=== PATIENT | female | born 1945 | race Caucasian/White ===

== ENCOUNTER 2019-01-15 18:20 | Inpatient (IN) | payer MEDICARE ==
[2019-01-15] MEDS ORDERED: SODIUM CHLORIDE 0.9% 1,000 ML IV STA (18:40)
--- NOTE | 2019-01-15 18:40 | ED ---
Dizziness HPI - General Chief Complaint: Dizziness Stated Complaint: Dizzy, cannot urinate Time Seen by Provider: 01/15/19 18:25 Source: patient, RN notes reviewed, old records reviewed Mode of arrival: ambulatory Limitations: no limitations - History of Present Illness Initial Comments: This is a 73-year-old female the ER for evaluation patient resents ER for evaluation of dizziness dizziness and weakness. Patient recently started on medication for herpes zoster, patient Valtrex and gabapentin. Patient states her symptoms have been fine as far as her eye pain she's had some twitching of the right eye but is today complaining of decreased urination. Patient feels dizziness and some mild balance issues well ambulate. Denies ear pain. No feve rs. No other change in medications. Patient symptoms just started today. She has not urinated for about 8 hours or denies abdominal MD Complaint: dizziness, lightheadedness -: hour(s) Timing: sudden onset Description: lightheadedness, off-balance History of Same: No History of Trauma: No Severity: mild Worsens With: nothing Associated Symptoms: denies other symptoms - Related Data Home Medications Medication Instructions Recorded Confirmed Ergocalciferol [Vitamin D2 50,000 unit PO Q14D 06/16/14 01/15/19 (DRISDOL)] glipiZIDE/METFORMIN HCL 2 tab PO BID 06/16/14 01/15/19 [glipiZIDE/METFORMIN HCL 5-500 mg] sitaGLIPtin PHOSPHATE [Januvia] 100 mg PO DAILY 06/16/14 01/15/19 Aspirin EC [Ecotrin Low Dose] 81 mg PO DAILY 01/15/19 01/15/19 Atorvastatin [Lipitor] 40 mg PO DAILY 01/15/19 01/15/19 Carvedilol [Coreg] 12.5 mg PO BID 01/15/19 01/15/19 Gabapentin [Neurontin] 100 mg PO HS 01/15/19 01/15/19 Insulin Detemir [Levemir Flextouch] 25 units SQ DAILY 01/15/19 01/15/19 Iron 28mg 28 mg PO DAILY 01/15/19 01/15/19 Isosorbide Mononitrate ER [Imdur] 30 mg PO DAILY 01/15/19 01/15/19 Losartan [Cozaar] 50 mg PO DAILY 01/15/19 01/15/19 Prasugrel [Effient] 10 mg PO DAILY 01/15/19 01/15/19 valACYclovir HCL [Valtrex] 1,000 mg PO Q8H 01/15/19 01/15/19 Allergies Allergy/AdvReac Type Severity Reaction Status Date / Time No Known Allergies Allergy Verified 01/15/19 18:44 Review of Systems ROS Statement: Those systems with pertinent positive or pertinent negative responses have been documented in the HPI. ROS Other: All systems not noted in ROS Statement are negative. Past Medical History Past Medical History: Cancer, Diabetes Mellitus, Hyperlipidemia, Hypertension Additional Past Medical History / Comment(s): SHORTNESS OF BREATH, SKIN CA HX History of Any Multi-Drug Resistant Organisms: None Reported Past Surgical History: Section, Cholecystectomy, Hernia Repair, Joint Replacement, Tonsillectomy Additional Past Surgical History / Comment(s): LEFT KNEE REPLACEMENT, UMBILICAL HERNIA REPAIR Past Anesthesia/Blood Transfusion Reactions: No Reported Reaction Past Psychological History: No Psychological Hx Reported Smoking Status: Never smoker Past Alcohol Use History: None Reported Past Drug Use History: None Reported - Past Family History Father Family Medical History: Myocardial Infarction ([place]) Additional Family Medical History / Comment(s): AT AGE 42 General Exam Limitations: no limitations General appearance: alert, in no apparent distress Head exam: Present: atraumatic, normocephalic, normal inspection Eye exam: Present: normal appearance, PERRL, EOMI. Absent: scleral icterus, conjunctival injection, periorbital swelling ENT exam: Present: normal exam, mucous membranes moist Neck exam: Present: normal inspection. Absent: tenderness, meningismus, lymphadenopathy Respiratory exam: Present: normal lung sounds bilaterally. Absent: respiratory distress, wheezes, rales, rhonchi, stridor Cardiovascular Exam: Present: regular rate, normal rhythm, normal heart sounds. Absent: systolic murmur, diastolic murmur, rubs, gallop, clicks GI/Abdominal exam: Present: soft, normal bowel sounds. Absent: distended, tenderness, guarding, rebound, rigid Extremities exam: Present: normal inspection, full ROM, normal capillary refill. Absent: tenderness, pedal edema, joint swelling, calf tenderness Back exam: Present: normal inspection Neurological exam: Present: alert, oriented X3, CN II-XII intact Psychiatric exam: Present: normal affect, normal mood Skin exam: Present: warm, dry, intact, normal color. Absent: rash Course Vital Signs 01/15/19 18:22 Temperature 97.4 F L Pulse Rate 98 Respiratory 20 Rate Blood Pressure 159/70 O2 Sat by Pulse 99 Oximetry - Reevaluation(s) Reevaluation #1: 01/15/19 18:43 Medical record is reviewed Reevaluation #2: 01/15/19 19:33 No prior history of renal failure - Consultations Consultation #1: Spoke with Dr. Rosales regarding admission, agreeable for admission will consult nephrology EKG Findings - EKG Comments: EKG Findings:: EKG shows sinus rhythm rate of 96, ID 166, QRS 146, QTc 495 Medical Decision Making - Medical Decision Making 73 female the ER for evaluation patient resents today for evaluation of inability urinate. Bristly diagnosed with zoster of the face she has a ophthalmology without any complications. Concern acyclovir and gabapentin, we'll hold those medications currently, patient does have new acute renal failure and will admit for nephrology evaluation - Lab Data Result diagrams: 01/15/19 18:50 01/15/19 18:50 Lab Results 01/15/19 01/15/19 Range/Units 18:50 18:50 WBC 14.4 H (3.8-10.6) k/uL RBC 4.08 (3.80-5.40) m/uL Hgb 11.8 (11.4-16.0) gm/dL Hct 36.4 (34.0-46.0) % MCV 89.3 (80.0-100.0) fL MCH 28.9 (25.0-35.0) pg MCHC 32.4 (31.0-37.0) g/dL RDW 17.0 H (11.5-15.5) % Plt Count 290 (150-450) k/uL Neutrophils % 75 % Lymphocytes % 13 % Monocytes % 7 % Eosinophils % 1 % Basophils % 1 % Neutrophils # 10.8 H (1.3-7.7) k/uL Lymphocytes # 1.9 (1.0-4.8) k/uL Monocytes # 1.1 H (0-1.0) k/uL Eosinophils # 0.2 (0-0.7) k/uL Basophils # 0.1 (0-0.2) k/uL Anisocytosis Slight Sodium 137 (137-145) mmol/L Potassium 4.8 (3.5-5.1) mmol/L Chloride 96 L (98-107) mmol/L Carbon Dioxide 16 L (22-30) mmol/L Anion Gap 25 mmol/L BUN 42 H (7-17) mg/dL Creatinine 4.77 H (0.52-1.04) mg/dL Est GFR (CKD-EPI)AfAm 10 (>60 ml/min/1.73 sqM) Est GFR (CKD-EPI)NonAf 9 (>60 ml/min/1.73 sqM) Glucose 144 H (74-99) mg/dL Calcium 10.6 H (8.4-10.2) mg/dL Phosphorus 8.4 H (2.5-4.5) mg/dL Magnesium 1.8 (1.6-2.3) mg/dL Total Bilirubin 1.0 (0.2-1.3) mg/dL AST 18 (14-36) U/L ALT 37 (9-52) U/L Alkaline Phosphatase 61 (38-126) U/L Creatine Kinase 74 (30-135) U/L Total Protein 7.9 (6.3-8.2) g/dL Albumin 4.4 (3.5-5.0) g/dL - Radiology Data Radiology results: report reviewed (X-ray abdominal series the chest is negative for acute disease), image reviewed Disposition Clinical Impression: Acute renal failure, Oliguria Disposition: ADMITTED IP TO THIS HOSP Condition: Fair Is patient prescribed a controlled substance at d/c from ED?: No Referrals: Erick Vance MD [Primary Care Provider] - 1-2 days
[2019-01-15 19:10] LABS: Anisocytosis Slight; Basophils # (A) 0.1 k/uL (0-0.2); Basophils % (A) 1 %; Eosinophils # (A) 0.2 k/uL (0-0.7); Eosinophils % (A) 1 %; HCT 36.4 % (34.0-46.0); HGB 11.8 gm/dL (11.4-16.0); Lymphocytes # (A) 1.9 k/uL (1.0-4.8); Lymphocytes % (A) 13 %; MCH 28.9 pg (25.0-35.0); MCHC 32.4 g/dL (31.0-37.0); MCV 89.3 fL (80.0-100.0); Mean Platelet Volume 7.2; Monocytes # (A) 1.1 k/uL (0-1.0); Monocytes % (A) 7 %; Neutrophils # (A) 10.8 k/uL (1.3-7.7); Neutrophils % (A) 75 %; Platelet Count 290 k/uL (150-450); RBC 4.08 m/uL (3.80-5.40); WBC 14.4 k/uL (3.8-10.6)
[2019-01-15 19:23] LABS: Albumin 4.4 g/dL (3.5-5.0); Calcium 10.6 mg/dL (8.4-10.2); Magnesium 1.8 mg/dL (1.6-2.3); Phosphorus 8.4 mg/dL (2.5-4.5); Potassium 4.8 mmol/L (3.5-5.1); Total Protein 7.9 g/dL (6.3-8.2)
--- NOTE | 2019-01-15 19:27 | XR ---
EXAMINATION TYPE: XR abdomen acute w cxr DATE OF EXAM: 01/15/2019 COMPARISON: NONE HISTORY: Dizziness TECHNIQUE: Chest x-ray with supine and upright abdomen FINDINGS: There is mild coarsening of interstitial pulmonary markings. There is no heart failure. Heart size is normal. There is no pleural effusion. There is bilateral mild bronchial adenopathy. There is no sign of intestinal obstruction or pneumoperitoneum. Fecal pattern is normal. There are cl ips from cholecystectomy. No pathologic calcifications over the kidneys. IMPRESSION: Pulmonary interstitial fibrotic changes and mild bronchial adenopathy. Chest not significantly differ ent than June 05, 2014 exam. This could relate to sarcoidosis. Nonacute abdomen.
[2019-01-15] MEDS ORDERED: SODIUM CHLORIDE 0.9% 1,000 ML IV ONE (19:32)
[2019-01-15 21:21] LABS: Glucose,Whole Blood 61 mg/dL (75-99)
[2019-01-15] MEDS: valACYclovir 500 MG TAB PO SCH (21:21)
[2019-01-15 21:35] VITALS: BMI 33.1
[2019-01-15 21:40] LABS: Glucose,Whole Blood 59 mg/dL (75-99)
[2019-01-15] MEDS ORDERED: ACETAMINOPHEN TAB 325 MG TAB PO PRN (22:05)
[2019-01-15] MEDS ORDERED: HYDROmorphone 0.5 MG/0.5 ML SYRINGE IVP PRN (22:05)
[2019-01-15 22:06] LABS: Glucose,Whole Blood 52 mg/dL (75-99)
[2019-01-15] MEDS ORDERED: GABAPENTIN 100 MG CAP PO SCH (22:15)
[2019-01-15 22:33] LABS: Glucose,Whole Blood 71 mg/dL (75-99)
[2019-01-15 23:07] LABS: Glucose,Whole Blood 58 mg/dL (75-99)
[2019-01-16 00:59] LABS: Glucose,Whole Blood 78 mg/dL (75-99)
[2019-01-16 02:14] LABS: Glucose,Whole Blood 106 mg/dL (75-99)
[2019-01-16 07:04] LABS: Glucose,Whole Blood 108 mg/dL (75-99)
--- NOTE | 2019-01-16 08:56 | US ---
EXAMINATION TYPE: US renals and bladder DATE OF EXAM: 01/16/2019 COMPARISON: NONE CLINICAL HISTORY: arf. ARF EXAM MEASUREMENTS: Right Kidney: 12.5 x 5.2 x 4.7 cm Left Kidney: 11.5 x 5.4 x 5.0 cm Right Kidney: no evidence of hydronephrosis Left Kidney: no evidence of hydronephrosis Bladder: not fully distended Bilateral Jets seen: no There is no evidence for hydronephrosis at this point in time. No nephrolithiasis is seen. No anali s are identified. The urinary bladder is anechoic. Bilateral ureteral jets are seen. IMPRESSION: NORMAL RENAL ULTRASOUND.
[2019-01-16] MEDS: FERROUS SULFATE ORAL ELIXIR 300 MG/5 ML CUP PO SCH (09:01)
[2019-01-16] MEDS: ENOXAPARIN 40 MG/0.4 ML SYRINGE SQ SCH (09:01)
[2019-01-16] MEDS: ATORVASTATIN 40 MG TAB PO SCH (09:02)
[2019-01-16] MEDS: PRASUGREL 10 MG TAB PO SCH (09:02)
[2019-01-16] MEDS: ISOSORBIDE MONONITRATE ER 30 MG TAB.ER.24H PO SCH (09:02)
[2019-01-16] MEDS: ASPIRIN 81 MG PO SCH (09:02)
[2019-01-16] MEDS: valACYclovir 500 MG TAB PO SCH (09:09)
[2019-01-16 11:35] LABS: Amorphous Sediment,Urine Rare /hpf; Appearance,Urine Clear (Clear); Bacteria,Urine Occasional /hpf; Bilirubin,Urine Negative (Negative); Blood,Urine Trace (Negative); Color,Urine Colorless; Glucose,Urine (UA) Negative (Negative); Ketones,Urine Negative (Negative); Leukocyte Esterase,Urine Negative (Negative); Mucus,Urine Rare /hpf; Nitrite,Urine Negative (Negative); Protein,Urine Negative (Negative); RBC,Urine 1 /hpf (0-5); Specific Gravity,Urine 1.006 (1.001-1.035); Squamous Epithelial Cell,Urine <1 /hpf (0-4); Urobilinogen,Urine <2.0 mg/dL (<2.0)
--- NOTE | 2019-01-16 11:43 | P.NPCON ---
History of Present Illness - Reason for Consult Consult date: 01/16/19 acute renal failure - Chief Complaint Dizziness, acute kidney injury - History of Present Illness This is a 73-year-old female seen in consultation because of acute kidney injury, severe gap acidosis with a gap of 25 and the bicarb of 16, mild hypercalcemia at 10.6, and possibly chronic kidney disease Her creatinine on admission was 4.7. Previous creatinines here in the hospital or from 06/05/2014, at the time creatinine was 0.75. No urinalysis is available Ultrasound of the kidney done this admission yesterday right kidney 12.5 cm and left kidney 11.5 cm no hydronephrosis. Her calcium is also high Her admission is because of dizziness. No nausea vomiting. Dizziness described as vertiginous. Started about 3-4 days ago. Recently a week ago she was diagnosed to have zoster on her right upper face and was started on Acyclovir 1000 mg every 8 hours. The zoster lesions are stable and only few. She denies any fever chills that have a headache. She took maybe to at least a few days ago. She is on losartan. No history of any bladder dysfunction although she has some mild stress incontinence. No history of hematuria kidney stones. No family history of kidney disease Past Medical History Past Medical History: Cancer, Diabetes Mellitus, Hyperlipidemia, Hypertension Additional Past Medical History / Comment(s): SHORTNESS OF BREATH, SKIN CA HX History of Any Multi-Drug Resistant Organisms: None Reported Past Surgical History: Section, Cholecystectomy, Hernia Repair, Joint Replacement, Tonsillectomy Additional Past Surgical History / Comment(s): LEFT KNEE REPLACEMENT, UMBILICAL HERNIA REPAIR Past Anesthesia/Blood Transfusion Reactions: No Reported Reaction Past Psychological History: No Psychological Hx Reported Smoking Status: Never smoker Past Alcohol Use History: None Reported Past Drug Use History: None Reported - Past Family History Father Family Medical History: Myocardial Infarction ([place]) Additional Family Medical History / Comment(s): AT AGE 42 Medications and Allergies Home Medications Medication Instructions Recorded Confirmed Type Ergocalciferol [Vitamin D2 50,000 unit PO Q14D 06/16/14 01/15/19 History (DRISDOL)] glipiZIDE/METFORMIN HCL 2 tab PO BID 06/16/14 01/15/19 History [glipiZIDE/METFORMIN HCL 5-500 mg] sitaGLIPtin PHOSPHATE [Januvia] 100 mg PO DAILY 06/16/14 01/15/19 History Aspirin EC [Ecotrin Low Dose] 81 mg PO DAILY 01/15/19 01/15/19 History Atorvastatin [Lipitor] 40 mg PO DAILY 01/15/19 01/15/19 History Carvedilol [Coreg] 12.5 mg PO BID 01/15/19 01/15/19 History Gabapentin [Neurontin] 100 mg PO HS 01/15/19 01/15/19 History Insulin Detemir [Levemir Flextouch] 25 units SQ DAILY 01/15/19 01/15/19 History Iron 28mg 28 mg PO DAILY 01/15/19 01/15/19 History Isosorbide Mononitrate ER [Imdur] 30 mg PO DAILY 01/15/19 01/15/19 History Losartan [Cozaar] 50 mg PO DAILY 01/15/19 01/15/19 History Prasugrel [Effient] 10 mg PO DAILY 01/15/19 01/15/19 History valACYclovir HCL [Valtrex] 1,000 mg PO Q8H 01/15/19 01/15/19 History Allergies Allergy/AdvReac Type Severity Reaction Status Date / Time No Known Allergies Allergy Verified 01/15/19 18:44 Physical Exam Vitals: Vital Signs Temp Pulse Pulse Resp BP BP Pulse Ox 01/16/19 07:00 97.8 F 104 H 18 170/60 95 01/16/19 01:47 98.0 F 109 H 16 165/67 96 01/15/19 20:58 98.7 F 103 H 18 90/62 01/15/19 20:40 98.2 F 96 19 165/74 99 01/15/19 18:22 97.4 F L 98 20 159/70 99 Intake and Output 01/15/19 01/16/19 01/16/19 22:59 06:59 14:59 Intake Total 1099 Balance 1099 Intake: Intake, IV Titration 1099 Amount Sodium Chloride 0.9% 1, 100 000 ml @ 100 mls/hr IV . Q10H ONE Rx#:[id number] Sodium Chloride 0.9% 1, 999 000 ml @ 999 mls/hr IV . Q1H1M STA Rx#:[id number] Other: Voiding Method Toilet # Voids 0 Weight 87.543 kg On examination she is awake alert oriented comfortable HEENT exam there are few lesions on her right upper face about the eyebrow. Her eyes look normal No JVP lymphadenopathy thyromegaly noted Lungs are clear to auscultation good air entry bilaterally Heart sounds are unremarkable for any murmur rub gallop Abdomen soft nontender no organomegaly ascites masses no suprapubic or groin tenderness Extremity exam reveals no edema Neuro logically awake alert oriented comfortable. No focal motor deficit no tremors no asterixis Results - Lab Results Most recent lab results Calcium 10.6 mg/dL (8.4-10.2) H 01/15/19 18:50 Phosphorus 8.4 mg/dL (2.5-4.5) H 01/15/19 18:50 Magnesium 1.8 mg/dL (1.6-2.3) 01/15/19 18:50 01/15/19 18:50 01/15/19 18:50 Assessment and Plan Assessment: Impression 1. Acute kidney injury likely from Valacyclovir, cannot rule out other causes. Her calcium is slightly high at 10.6 kg on ergocalciferol 50,000 units every 14 days. She is not on any calcium 2. Unclear as to whether she has chronic kidney disease. Creatinine was 0.7 dated 06/05/2014. Ultrasound showed normal-sized kidney at 12.5 and 11.5 cm 3. Severe gap acidosis, gap is 25, and bicarb is 16. Corrected bicarb would be 28 suggestive of a primary metabolic alkalosis as well. The etiology of this could be just acute kidney injury. But with the presence of unexplained gap rule out lactic acidosis. Glucose is 144 unlikely to be ketoacidosis but this needs to be ruled out as well 4. Mild hypercalcemia calcium is 10.7. Rule out malignancy. 5. Diabetes mellitus for 40 years with no retinopathy and no neuropathy. 6. History of hypertension on losartan. 7. History of coronary artery disease with stent. Recommendation 1. IV normal saline at 100 and hour. 2. Urine analysis, urine random creatinine and protein protein to creatinine ratio 3. Urine and serum free light chains rule out myeloma 4. Check Mohamud level to rule out sarcoidosis 5. Check PTH, and vitamin D 125 level 6. Check CPK as her phosphorus is somewhat high and we'll make sure there is no rhabdomyolysis. 7. Agree with the reduction in the dose of Valtrex acyclovir. 8. Maintain strict I's and O's 9. Check bladder scan. 10. Check stat lites see where the acidosis is 11. Check stat serum osmolality to rule out any alcohol poisoning. 12. Serology for glomerular disease will be ordered if necessary Thank you for this consultation and will continue to follow closely
[2019-01-16 12:16] LABS: Albumin 3.7 g/dL (3.5-5.0); Total Bilirubin 0.9 mg/dL (0.2-1.3)
[2019-01-16 12:33] LABS: Glucose,Whole Blood 83 mg/dL (75-99)
--- NOTE | 2019-01-16 16:23 | P.HPIM ---
History of Present Illness H&P Date: 01/16/19 Chief Complaint: Weakness dizziness, unable to void This is a 73-year-old pleasant lady patient of Dr. Vance. He has underlying history of hypertension, diabetes mellitus type 2, hypertension, CAD, CK D unknown type, admitted to the emergency room secondary to dizziness, d isorientation, patient was off balance, and was not able to void for approximately one day. Patient was recently treated by our nurse percussion and office for varicella zoster v1 distribution lesion in the right temporal region, using valacyclovir and gabapentin 100 mg hs, this was started 3 days ago. He also got to see the press box custodian secondary to the proximity of the lesions to the eyelid. And mentioned that there is no herpetic keratitis noted. sHe now presents to the emergency room with the above symptoms including dizziness, off balance, and was at the home yesterday, and noticed that for the entire day she was not able to void. Patient took 2 doses of Motrin that day, there is no abdominal pain, no falls, patient does not have any shaking chills,. Next Emergency room, lab shows urinalysis is negative, creatinine of 4.7 the most recent value from her computer was in May 2014 with creatinine was 0.75 patient was admitted secondary to acute kidney failure, with consultations to nephrology, urinalysis requested, along with urine eosinophils, postvoid resi dual, and renal ultrasound. Patient also has mild hypercalcemia of 10.7, severe gap acidosis of 25 bicarb of 16 Review of Systems Constitutional: Reports as per HPI, Denies anorexia, Denies chills, Denies chronic headaches, Denies chronic pain, Denies daytime sleepiness, Denies fatigue, Denies fever, Denies lethargy, Denies malaise, Denies night sweats, Den ies poor appetite, Denies sweats, Denies weakness, Denies weight gain, Denies weight loss Ears, nose, mouth and throat: Reports as per HPI Cardiovascular: Reports as per HPI, Denies chest pain, Denies claudication, Denies decreased exercise tolerance, Denies dyspnea on exertion, Denies edema, Denies high blood pressure, Denies irregular heart beat, Denies leg edema, Denies lightheadedness, Denies orthopnea, Denies palpitations, Denies paroxysmal nocturnal dyspnea, Denies phlebitis, Denies rapid heart beat, Denies shortness of breath, Denies syncope Respiratory: Reports as per HPI, Denies congestion, Denies cough, Denies cough with sputum, Denies dyspnea, Denies excessive sputum, Denies hemoptysis, Denies home oxygen, Denies pain, Denies pain on inspiration, Denies pleurisy, Denies respiratory infections, Denies sleep apnea, Denies snoring, Denies wheezing Gastrointestinal: Reports as per HPI, Reports loss of appetite, Denies abdominal pain, Denies belching, Denies bloating, Denies BRBPR, Denies change in bowel habits, Denies coffee ground emesis, Denies constipation, Denies diarrhea, Denies dyspepsia, Denies early satiety, Denies excessive gas, Denies heartburn, Denies hematemesis, Denies hematochezia, Denies indigestion, Denies jaundice, Denies lactose intolerance, Denies melena, Denies nausea, Denies vomiting Genitourinary: Reports as per HPI, Denies abnormal vaginal bleeding, Denies decreased libido, Denies difficulty conceiving, Denies difficulty voiding, Denies dysmenorrhea, Denies dyspareunia, Denies dysuria, Denies flank pain, Denies genital sores, Denies hematuria, Denies hot flashes, Denies incomplete emptying, Denies kidney stones, Denies menorrhagia, Denies mixed incontinence, Denies nocturia, Denies pelvic pain, Denies post void dribbling, Denies , Denies prolapse symptoms, Denies stress incontinence, Denies urge incontinence, Denies urgency, Denies urinary frequency, Denies vaginal discharge, Denies vaginal dryness, Denies vaginal itching, Denies vaginal odor Menstruation: Reports as per HPI, Reports postmenopausal Musculoskeletal: Reports as per HPI (Right facial rash,) Integumentary: Reports as per HPI, Denies acne, Denies boils, Denies brittle nails, Denies change in hair/nails, Denies color changes, Denies darkening of skin, Denies depigmentation, Denies dryness, Denies foot/leg ulcers, Denies growths, Denies hirsutism, Denies lesions, Denies onychomycosis, Denies pruritus, Denies rash, Denies sores, Denies striae, Denies unusual bruising, Denies wounds Neurological: Reports weakness, Reports visual changes (Persistent negative after image), Denies as per HPI, Denies aphasia, Denies ataxia, Denies balance difficulties, Denies burning pain, Denies change in mentation, Denies change in smell/taste, Denies change in speech, Denies confusion, Denies convulsions, Denies double vision, Denies gait dysfunction, Denies head injury, Denies headaches, Denies hearing difficulties, Denies lack of coordination, Denies loss of vision, Denies memory loss, Denies migraines, Denies motor disturbance, Denies numbness, Denies paralysis, Denies paresthesias, Denies seizures, Denies sensory deficit, Denies spasticity, Denies syncope, Denies tic, Denies tingling, Denies transient paralysis, Denies tremors, Denies vertigo Psychiatric: Reports as per HPI, Denies anhedonia, Denies anxiety, Denies anxiety attacks, Denies change in appetite, Denies change in libido, Denies change in sleep habits, Denies confusion, Denies depression, Denies difficulty concentrating, Denies disorientation, Denies hallucinations, Denies hopelessness, Denies hypersomnia, Denies insomnia, Denies irritability, Denies memory loss, Denies mood swings, Denies paranoia, Denies sadness/tearfulness, Denies sleep disturbances, Denies suicidal ideation Endocrine: Reports as per HPI Hematologic/Lymphatic: Reports as per HPI Allergic/Immunologic: Reports as per HPI, Denies allergic rhinitis, Denies anaphylaxis, Denies angioedema, Denies gluten intolerance, Denies persistent infections, Denies seasonal allergies, Denies urticaria, Denies wheezing Past Medical History Past Medical History: Cancer, Diabetes Mellitus, Hyperlipidemia, Hypertension Additional Past Medical History / Comment(s): SHORTNESS OF BREATH, SKIN CA HX History of Any Multi-Drug Resistant Organisms: None Reported Past Surgical History: Section, Cholecystectomy, Hernia Repair, Joint Replacement, Tonsillectomy Additional Past Surgical History / Comment(s): LEFT KNEE REPLACEMENT, UMBILICAL HERNIA REPAIR Past Anesthesia/Blood Transfusion Reactions: No Reported Reaction Past Psychological History: No Psychological Hx Reported Smoking Status: Never smoker Past Alcohol Use History: None Reported Past Drug Use History: None Reported - Past Family History Father Family Medical History: Myocardial Infarction ([place]) Additional Family Medical History / Comment(s): AT AGE 42 Medications and Allergies Home Medications Medication Instructions Recorded Confirmed Type Ergocalciferol [Vitamin D2 50,000 unit PO Q14D 06/16/14 01/15/19 History (DRISDOL)] glipiZIDE/METFORMIN HCL 2 tab PO BID 06/16/14 01/15/19 History [glipiZIDE/METFORMIN HCL 5-500 mg] sitaGLIPtin PHOSPHATE [Januvia] 100 mg PO DAILY 06/16/14 01/15/19 History Aspirin EC [Ecotrin Low Dose] 81 mg PO DAILY 01/15/19 01/15/19 History Atorvastatin [Lipitor] 40 mg PO DAILY 01/15/19 01/15/19 History Carvedilol [Coreg] 12.5 mg PO BID 01/15/19 01/15/19 History Gabapentin [Neurontin] 100 mg PO HS 01/15/19 01/15/19 History Insulin Detemir [Levemir Flextouch] 25 units SQ DAILY 01/15/19 01/15/19 History Iron 28mg 28 mg PO DAILY 01/15/19 01/15/19 History Isosorbide Mononitrate ER [Imdur] 30 mg PO DAILY 01/15/19 01/15/19 History Losartan [Cozaar] 50 mg PO DAILY 01/15/19 01/15/19 History Prasugrel [Effient] 10 mg PO DAILY 01/15/19 01/15/19 History valACYclovir HCL [Valtrex] 1,000 mg PO Q8H 01/15/19 01/15/19 History Allergies Allergy/AdvReac Type Severity Reaction Status Date / Time No Known Allergies Allergy Verified 01/15/19 18:44 Physical Exam Vitals: Vital Signs Temp Pulse Pulse Resp BP BP Pulse Ox 01/16/19 07:00 97.8 F 104 H 18 170/60 95 01/16/19 01:47 98.0 F 109 H 16 165/67 96 01/15/19 20:58 98.7 F 103 H 18 90/62 01/15/19 20:40 98.2 F 96 19 165/74 99 01/15/19 18:22 97.4 F L 98 20 159/70 99 Intake and Output 01/15/19 01/16/19 01/16/19 22:59 06:59 14:59 Intake Total 1099 Balance 1099 Intake: Intake, IV Titration 1099 Amount Sodium Chloride 0.9% 1, 100 000 ml @ 100 mls/hr IV . Q10H ONE Rx#:[id number] Sodium Chloride 0.9% 1, 999 000 ml @ 999 mls/hr IV . Q1H1M STA Rx#:[id number] Other: Voiding Method Toilet # Voids 0 Weight 87.543 kg - Constitutional General appearance: cooperative, no acute distress - EENT Eyes: anicteric sclerae, EOMI, PERRLA, dentition normal, normal appearance ENT: NA/AT, normal oropharynx - Neck Neck: normal ROM - Respiratory Respiratory: bilateral: CTA, negative: diminished, dullness, rales - Cardiovascular Rhythm: regular Heart sounds: normal: S1, S2 - Gastrointestinal General gastrointestinal: normal bowel sounds, soft - Integumentary Integumentary: decreased turgor, normal, rash (Healing lesions in the right forehead, eyelid right side, no visible lesions on the right sclera and right pupils) - Neurologic Neurologic: CNII-XII intact - Musculoskeletal Musculoskeletal: gait normal, strength equal bilaterally - Psychiatric Psychiatric: A&O x's 3 Results CBC & Chem 7: 01/15/19 18:50 01/16/19 11:50 Labs: Abnormal Lab Results - Last 24 Hours (Table) 01/15/19 01/15/19 01/15/19 Range/Units 18:50 18:50 21:06 WBC 14.4 H (3.8-10.6) k/uL RDW 17.0 H (11.5-15.5) % Neutrophils # 10.8 H (1.3-7.7) k/uL Monocytes # 1.1 H (0-1.0) k/uL Sodium (137-145) mmol/L Chloride 96 L (98-107) mmol/L Carbon Dioxide 16 L (22-30) mmol/L BUN 42 H (7-17) mg/dL Creatinine 4.77 H (0.52-1.04) mg/dL Glucose 144 H (74-99) mg/dL POC Glucose (mg/dL) 61 L (75-99) mg/dL Calcium 10.6 H (8.4-10.2) mg/dL Phosphorus 8.4 H (2.5-4.5) mg/dL Urine Blood (Negative) Amorphous Sediment (None) /hpf Urine Bacteria (None) /hpf Urine Mucus (None) /hpf 01/15/19 01/15/19 01/15/19 Range/Units 21:28 21:53 22:21 WBC (3.8-10.6) k/uL RDW (11.5-15.5) % Neutrophils # (1.3-7.7) k/uL Monocytes # (0-1.0) k/uL Sodium (137-145) mmol/L Chloride (98-107) mmol/L Carbon Dioxide (22-30) mmol/L BUN (7-17) mg/dL Creatinine (0.52-1.04) mg/dL Glucose (74-99) mg/dL POC Glucose (mg/dL) 59 L 52 L 71 L (75-99) mg/dL Calcium (8.4-10.2) mg/dL Phosphorus (2.5-4.5) mg/dL Urine Blood (Negative) Amorphous Sediment (None) /hpf Urine Bacteria (None) /hpf Urine Mucus (None) /hpf 01/15/19 01/16/19 01/16/19 Range/Units 22:55 01:58 06:51 WBC (3.8-10.6) k/uL RDW (11.5-15.5) % Neutrophils # (1.3-7.7) k/uL Monocytes # (0-1.0) k/uL Sodium (137-145) mmol/L Chloride (98-107) mmol/L Carbon Dioxide (22-30) mmol/L BUN (7-17) mg/dL Creatinine (0.52-1.04) mg/dL Glucose (74-99) mg/dL POC Glucose (mg/dL) 58 L 106 H 108 H (75-99) mg/dL Calcium (8.4-10.2) mg/dL Phosphorus (2.5-4.5) mg/dL Urine Blood (Negative) Amorphous Sediment (None) /hpf Urine Bacteria (None) /hpf Urine Mucus (None) /hpf 01/16/19 01/16/19 Range/Units 10:00 11:50 WBC (3.8-10.6) k/uL RDW (11.5-15.5) % Neutrophils # (1.3-7.7) k/uL Monocytes # (0-1.0) k/uL Sodium 136 L (137-145) mmol/L Chloride (98-107) mmol/L Carbon Dioxide 18 L (22-30) mmol/L BUN 54 H (7-17) mg/dL Creatinine 5.52 H (0.52-1.04) mg/dL Glucose (74-99) mg/dL POC Glucose (mg/dL) (75-99) mg/dL Calcium (8.4-10.2) mg/dL Phosphorus (2.5-4.5) mg/dL Urine Blood Trace H (Negative) Amorphous Sediment Rare H (None) /hpf Urine Bacteria Occasional H (None) /hpf Urine Mucus Rare H (None) /hpf Laboratory Results WBC 14.4 k/uL (3.8-10.6) H 01/15/19 18:50 RBC 4.08 m/uL (3.80-5.40) 01/15/19 18:50 Hgb 11.8 gm/dL (11.4-16.0) 01/15/19 18:50 Hct 36.4 % (34.0-46.0) 01/15/19 18:50 MCV 89.3 fL (80.0-100.0) 01/15/19 18:50 MCH 28.9 pg (25.0-35.0) 01/15/19 18:50 MCHC 32.4 g/dL (31.0-37.0) 01/15/19 18:50 RDW 17.0 % (11.5-15.5) H 01/15/19 18:50 Plt Count 290 k/uL (150-450) 01/15/19 18:50 Neutrophils % 75 % 01/15/19 18:50 Lymphocytes % 13 % 01/15/19 18:50 Monocytes % 7 % 01/15/19 18:50 Eosinophils % 1 % 01/15/19 18:50 Basophils % 1 % 01/15/19 18:50 Neutrophils # 10.8 k/uL (1.3-7.7) H 01/15/19 18:50 Lymphocytes # 1.9 k/uL (1.0-4.8) 01/15/19 18:50 Monocytes # 1.1 k/uL (0-1.0) H 01/15/19 18:50 Eosinophils # 0.2 k/uL (0-0.7) 01/15/19 18:50 Basophils # 0.1 k/uL (0-0.2) 01/15/19 18:50 Anisocytosis Slight 01/15/19 18:50 Sodium 136 mmol/L (137-145) L 01/16/19 11:50 Potassium 5.0 mmol/L (3.5-5.1) 01/16/19 11:50 Chloride 100 mmol/L (98-107) 01/16/19 11:50 Carbon Dioxide 18 mmol/L (22-30) L 01/16/19 11:50 Anion Gap 18 mmol/L 01/16/19 11:50 BUN 54 mg/dL (7-17) H 01/16/19 11:50 Creatinine 5.52 mg/dL (0.52-1.04) H 01/16/19 11:50 Est GFR (CKD-EPI)AfAm 8 (>60 ml/min/1.73 sqM) 01/16/19 11:50 Est GFR (CKD-EPI)NonAf 7 (>60 ml/min/1.73 sqM) 01/16/19 11:50 Glucose 78 mg/dL (74-99) 01/16/19 11:50 POC Glucose (mg/dL) 83 mg/dL (75-99) 01/16/19 12:16 POC Glu Health Counselor ID Madeleine Jacobs 01/16/19 12:16 Osmolality 294 mosm/kg (280-301) 01/16/19 11:50 Plasma Lactic Acid [place] 3.0 mmol/L (0.7-2.0) H* 01/16/19 13:10 Calcium 10.0 mg/dL (8.4-10.2) 01/16/19 11:50 Phosphorus 8.4 mg/dL (2.5-4.5) H 01/15/19 18:50 Magnesium 1.8 mg/dL (1.6-2.3) 01/15/19 18:50 Total Bilirubin 0.9 mg/dL (0.2-1.3) 01/16/19 11:50 AST 15 U/L (14-36) 01/16/19 11:50 ALT 31 U/L (9-52) 01/16/19 11:50 Alkaline Phosphatase 65 U/L (38-126) 01/16/19 11:50 Creatine Kinase 57 U/L (30-135) 01/16/19 11:50 Total Protein 7.0 g/dL (6.3-8.2) 01/16/19 11:50 Albumin 3.7 g/dL (3.5-5.0) 01/16/19 11:50 Urine Color Colorless 01/16/19 10:00 Urine Appearance Clear (Clear) 01/16/19 10:00 Urine pH 5.0 (5.0-8.0) 01/16/19 10:00 Ur Specific [place] 1.006 (1.001-1.035) 01/16/19 10:00 Urine Protein Negative (Negative) 01/16/19 10:00 Urine Glucose (UA) Negative (Negative) 01/16/19 10:00 Urine Ketones Negative (Negative) 01/16/19 10:00 Urine Blood Trace (Negative) H 01/16/19 10:00 Urine Nitrite Negative (Negative) 01/16/19 10:00 Urine Bilirubin Negative (Negative) 01/16/19 10:00 Urine Urobilinogen <2.0 mg/dL (<2.0) 01/16/19 10:00 Ur Leukocyte Esterase Negative (Negative) 01/16/19 10:00 Urine RBC 1 /hpf (0-5) 01/16/19 10:00 Urine WBC 2 /hpf (0-5) 01/16/19 10:00 Ur Squamous Epith Cells <1 /hpf (0-4) 01/16/19 10:00 Amorphous Sediment Rare /hpf (None) H 01/16/19 10:00 Urine Bacteria Occasional /hpf (None) H 01/16/19 10:00 Urine Mucus Rare /hpf (None) H 01/16/19 10:00 Urine Eosinophils % 01/16/19 10:00 Acetone, Qual Negative (Negative) 01/16/19 11:50 Thrombosis Risk Factor Assmnt - DVT/VTE Prophylaxis DVT/VTE Prophylaxis: Low risk, early ambulation encouraged - Choose All That Apply Any of the Below Risk Factors Present?: No Other Risk Factors: Yes Each Risk Factor Represents 2 Points: Age 61-74 years Other congenital or acquired thrombophilia - If yes, enter type in comment: No Thrombosis Risk Factor Assessment Total Risk Factor Score: 2 Thrombosis Risk Factor Assessment Level: Low Risk Assessment and Plan Plan: 1. Acute kidney failure, most likely secondary to valacyclovir as this is also been associated with acute kidney failure, as well as uremic encephalopathies, aggravated by the use of NSAIDs prior to admission, no evidence of hypotension, we'll going to evaluate for postobstructive nephropathies, abdominal ultrasound requested. Abdominal ultrasound shows normal renal ultrasound without hydro nephrosis no nephrolithiasis, no masses, and anechoic urinary bladder, with bilateral urethral check seen. Nephrology is to see the patient we'll going to discontinue valacyclovir. Dr. Herrera has ordered Mohamud levels and multiple myeloma and myeloma labs. Urine eosinophils not detected. 2. Herpes zoster first trigeminal region right side, lesions are healing, without any evidence of cellulitis, patient was seen by ophthalmology with no herpes zoster keratitis, we will discontinue the valacyclovir at this time secondary to the adverse events. 3. vision change with persistent negative after image reactions, possibly related to valacyclovir or gabapentin, both are discontinued, no lesions are noted in the visual field per ophthalmology. 4. Metabolic acidosis with high anion gap, possibly related to kidney failure, urine acetones negative, nephrology is following Hypercalcemia, 10.6 on baseline, possibly related to dehydration, however she is on chronic supplementation for vitamin D, sarcoid Mohamud levels. Requested along with multiple myeloma labs 6. Diabetes mellitus type 2 on the beside metformin, these are discontinued secondary to hypoglycemia present on admission, complicated for the use of metformin secondary to creatinine over 1.5, patient will begin a scale discontinue Januvia secondary to creatinine clearance 7. CAD, on Coreg 12.5, Lipitor, aspirin 81, and effient hold Cozaar secondary to elevated creatinine with acute failure 8. Hyperlipidemia on Coreg DVT prophylaxis low-risk, start early ambulation and HOMER hose GI prophylaxis with Pepcid
[2019-01-16 17:08] LABS: Glucose,Whole Blood 97 mg/dL (75-99)
[2019-01-16 20:46] LABS: Glucose,Whole Blood 82 mg/dL (75-99)
[2019-01-16] MEDS: hydrALAZINE HCL 20 MG/ML 1 ML VIAL IVP PRN (21:34)
[2019-01-16 22:01] LABS: Glucose,Whole Blood 88 mg/dL (75-99)
[2019-01-17] MEDS: hydrALAZINE HCL 20 MG/ML 1 ML VIAL IVP PRN ×2 (02:44→08:14)
[2019-01-17 06:51] LABS: Glucose,Whole Blood 93 mg/dL (75-99)
[2019-01-17 07:38] LABS: Anisocytosis Slight; Basophils % (A) 0 %; Eosinophils # (A) 0.1 k/uL (0-0.7); Eosinophils % (A) 2 %; HCT 35.5 % (34.0-46.0); HGB 11.3 gm/dL (11.4-16.0); Lymphocytes # (A) 0.9 k/uL (1.0-4.8); Lymphocytes % (A) 10 %; MCH 27.6 pg (25.0-35.0); MCHC 31.8 g/dL (31.0-37.0); MCV 86.8 fL (80.0-100.0); Mean Platelet Volume 6.8; Monocytes # (A) 0.6 k/uL (0-1.0); Monocytes % (A) 7 %; Neutrophils % (A) 79 %; Platelet Count 268 k/uL (150-450); RBC 4.09 m/uL (3.80-5.40); RDW 17.1 % (11.5-15.5); WBC 8.8 k/uL (3.8-10.6)
[2019-01-17 07:48] LABS: Calcium 9.7 mg/dL (8.4-10.2); Potassium 5.1 mmol/L (3.5-5.1)
[2019-01-17] MEDS: FERROUS SULFATE ORAL ELIXIR 300 MG/5 ML CUP PO SCH (08:13)
[2019-01-17] MEDS: PRASUGREL 10 MG TAB PO SCH (08:14)
[2019-01-17] MEDS: ENOXAPARIN 40 MG/0.4 ML SYRINGE SQ SCH (08:14)
[2019-01-17] MEDS: ISOSORBIDE MONONITRATE ER 30 MG TAB.ER.24H PO SCH (08:14)
[2019-01-17] MEDS: ASPIRIN 81 MG PO SCH (08:14)
[2019-01-17] MEDS: ATORVASTATIN 40 MG TAB PO SCH (08:14)
[2019-01-17 11:58] LABS: Glucose,Whole Blood 229 mg/dL (75-99)
[2019-01-17] MEDS ORDERED: INSULIN DETEMIR (LEVEMIR) 100 UNIT/ML SYR SQ ONE (13:00)
[2019-01-17] MEDS: hydrALAZINE HCL 50 MG TAB PO SCH ×2 (14:32→20:02)
--- NOTE | 2019-01-17 15:20 | P.PN ---
Subjective Progress Note Date: 01/17/19 This is a 73-year-old pleasant lady patient of Dr. Vance. He has underlying history of hypertension, diabetes mellitus type 2, hypertension, CAD, CK D unknown type, admitted to the emergency room secondary to dizziness, disorientation, patient was off balance, and was not able to void for approximately one day. Patient was recently treated by our nurse practitioner in the office for varicella zoster v1 distribution lesion in the right temporal region, using valacyclovir and gabapentin 100 mg hs, this was started 3 days ago. He also got to see the [employer] special agent secondary to the proximity of the lesions to the eyelid. And mentioned that there is no herpetic keratitis noted. sHe now presents to the emergency room with the above symptoms including dizziness, off balance, and was at the home yesterday, and noticed that for the entire day she was not able to void. Patient took 2 doses of Motrin that day, there is no abdominal pain, no falls, patient does not have any shaking chills,. Next Emergency room, lab shows urinalysis is negative, creatinine of 4.7 the most recent value from her computer was in May 2014 with creatinine was 0.75 patient was admitted secondary to acute kidney failure, with consultations to nephrology, urinalysis requested, along with urine eosinophils, postvoid residual, and renal ultrasound. Patient also has mild hypercalcemia of 10.7, severe gap acidosis of 25 bicarb of 16 01/17: Renal function is worsening today with BUN of 58 and creatinine 6.31. Patient is followed closely by nephrology. Patient is normally on Levemir at home which will be resumed at a lower dose of 20 units daily. Patient has had good urine output. Shingles have healed. Patient has been afebrile, heart rate 98, blood pressure 188/80, pulse ox 97% on room air. Oral hydralazine added for blood pressure control. Objective - Vital Signs Vital signs: Vital Signs Temp 97.7 F 01/17/19 07:00 Pulse 98 01/17/19 07:00 Resp 16 01/17/19 07:00 BP 188/80 01/17/19 07:00 Pulse Ox 97 01/17/19 07:00 Intake & Output 01/16/19 01/17/19 01/17/19 18:59 06:59 18:59 Intake Total 1140 650 Output Total 250 500 Balance 890 150 Intake: Intake, IV Titration 600 650 Amount Sodium Chloride 0.9% 1, 600 650 000 ml @ 100 mls/hr IV . Q10H ONE Rx#:[id number] Oral 540 Output: Urine 250 500 Other: Voiding Method Toilet # Voids 2 - Exam Review Of Systems: Constitutional: No fever, no chills, no night sweats. No weight change. No weakness, fatigue or lethargy. No daytime sleepiness. EENT: No headache. No blurred vision or double vision, no loss of vision. No l oss of Hearing, no ringing in the ears, reports dizziness. No nasal drainage or congestion. No epistaxis. No sore throat. Lungs: No shortness of breath, cough, no sputum production. No wheezing. Cardiovascular: No chest pain, no lower extremity edema. No palpitations. No paroxysmal nocturnal dyspnea. No orthopnea. No lightheadedness or dizziness. No syncopal episodes. Abdominal: No abdominal pain. No nausea, vomiting. No diarrhea. No constipation. No bloody or tarry stools.. No loss of appetite. Genitourinary: No dysuria, increased frequency, urgency. No urinary retention. Musculoskeletal: No myalgias. No muscle weakness, no gait dysfunction, no frequent falls. No back pain. No neck pain. Integumentary: No wounds, no lesions. No rash or pruritus. No unusual bruising. No change in hair or nails. Neurologic: No aphasia. No facial droop. No change in mentation. No head injury. No headache. No paralysis. No paresthesia. Psychiatric: No depression. No anxiety. No mood swings. Endocrine: No abnormal blood sugars. No weight change. No excessive sweating or thirst. No cold intolerance. Gen: This is a 73-year-old female. She is sitting up in a chair and appears to be comfortable and in no acute distress. Patient is eating lunch. HEENT: Head is atraumatic, normocephalic. Pupils equal, round. Sclerae is anicteric. Healing shingles lesions to the right forehead and eyelid. No involvement of the right sclera, right pupil. NECK: Supple. No JVD. No lymphadenopathy. No thyromegaly. LUNGS: Clear to auscultation. No wheezes or rhonchi. No intercostal retractions. HEART: Regular rate and rhythm. No murmur. ABDOMEN: Soft. Bowel sounds are present. No masses. No tenderness. EXTREMITIES: No pedal edema. No calf tenderness. NEUROLOGICAL: Patient is awake, alert and oriented x3. Cranial nerves 2 through 12 are grossly intact. - Labs CBC & Chem 7: 01/17/19 07:15 01/17/19 07:15 Labs: Abnormal Lab Results - Last 24 Hours (Table) 01/16/19 01/16/19 01/16/19 Range/Units 11:50 13:10 22:26 Hgb (11.4-16.0) gm/dL RDW (11.5-15.5) % Lymphocytes # (1.0-4.8) k/uL Sodium (137-145) mmol/L Carbon Dioxide (22-30) mmol/L BUN (7-17) mg/dL Creatinine (0.52-1.04) mg/dL Glucose (74-99) mg/dL POC Glucose (mg/dL) (75-99) mg/dL Plasma Lactic Acid Sagar 3.0 H* (0.7-2.0) mmol/L U Random Total Protein (<12) mg/dL U Free Lambda Light Ch 1.750 H (0.020-0.670) mg/dL Free Lambda LC, Quant 7.06 H (0.57-2.63) mg/dL 01/16/19 01/17/19 01/17/19 Range/Units 22:26 07:15 07:15 Hgb 11.3 L (11.4-16.0) gm/dL RDW 17.1 H (11.5-15.5) % Lymphocytes # 0.9 L (1.0-4.8) k/uL Sodium 135 L (137-145) mmol/L Carbon Dioxide 19 L (22-30) mmol/L BUN 58 H (7-17) mg/dL Creatinine 6.31 H (0.52-1.04) mg/dL Glucose 123 H (74-99) mg/dL POC Glucose (mg/dL) (75-99) mg/dL Plasma Lactic Acid Sagar (0.7-2.0) mmol/L U Random Total Protein 24 H (<12) mg/dL U Free Lambda Light Ch (0.020-0.670) mg/dL Free Lambda LC, Quant (0.57-2.63) mg/dL 01/17/19 Range/Units 11:46 Hgb (11.4-16.0) gm/dL RDW (11.5-15.5) % Lymphocytes # (1.0-4.8) k/uL Sodium (137-145) mmol/L Carbon Dioxide (22-30) mmol/L BUN (7-17) mg/dL Creatinine (0.52-1.04) mg/dL Glucose (74-99) mg/dL POC Glucose (mg/dL) 229 H (75-99) mg/dL Plasma Lactic Acid Sagar (0.7-2.0) mmol/L U Random Total Protein (<12) mg/dL U Free Lambda Light Ch (0.020-0.670) mg/dL Free Lambda LC, Quant (0.57-2.63) mg/dL Assessment and Plan Plan: 1. Acute kidney failure, most likely secondary to valacyclovir as this is also been associated with acute kidney failure, as well as uremic encephalopathies, aggravated by the use of NSAIDs prior to admission, no evidence of hypotension. Abdominal ultrasound shows normal renal ultrasound without hydronephrosis no nephrolithiasis, no masses, and anechoic urinary bladder, with bilateral urethral check seen. Nephrology consult appreciated. Multiple myeloma and Mohamud labs are pending. 2. Herpes zoster first trigeminal region right side, lesions are healing, without any evidence of cellulitis, patient was seen by ophthalmology with no herpes zoster keratitis, we will discontinue the valacyclovir at this time secondary to the adverse events. 3. Vision change with persistent negative after image reactions, possibly related to valacyclovir or gabapentin, both are discontinued, no lesions are noted in the visual field per ophthalmology. 4. Metabolic acidosis with high anion gap, possibly related to kidney failure, urine acetones negative, nephrology is following 5. Hypercalcemia, 10.6 on baseline, possibly related to dehydration, however she is on chronic supplementation for vitamin D, sarcoid Mohamud levels. Requested along with multiple myeloma labs 6. Diabetes mellitus type 2. Metformin discontinued secondary to hypoglycemia present on admission, complicated for the use of metformin secondary to c reatinine over 1.5, patient will begin a scale discontinue Januvia secondary to creatinine clearance patient will be started on Levemir 20 units daily and continue NovoLog scale. 7. CAD, on Coreg 12.5, Lipitor, aspirin 81, and effient hold Cozaar secondary to elevated creatinine with acute renal failure 8. Hyperlipidemia on Coreg DVT prophylaxis low-risk, start early ambulation and HOMER hose GI prophylaxis with Pepcid Discharge plan: Home with [facility] Impression and plan of care have been directed as dictated by the signing physician. Edna Phipps nurse practitioner acting as scribe for signing physician.
[2019-01-17 17:03] LABS: Glucose,Whole Blood 284 mg/dL (75-99)
--- NOTE | 2019-01-17 19:09 | PN ---
PROGRESS NOTE Patient is seen for followup for acute kidney injury. The patient's renal function has worsened significantly. Her creatinine has gone up to 6.3 mg/dL from 4.7 on initial admission. Previous creatinine was 0.75 in 2015. The patient's urine output has increased according to the patient. 24 hour output charted at 1500, however, I believe this is not accurate. Currently patient is not on any IV fluids. Her blood pressure is not low, in fact, it is high. The patient is tearful because she may need to start dialysis. PHYSICAL EXAMINATION: On examination today, blood pressure was 188/80, heart rate 98 per minute. She is afebrile. Examination of the heart S1, S2. Examination of the lungs, bilateral breath sounds are heard. Abdomen is soft, nontender. Examination lower extremities shows no significant edema. LABS: Show sodium 135, potassium 5.1, chloride 101, CO2 is 19, BUN 58, serum creatinine 6.3. Urine free lambda light chains were elevated. Other serologies are pending. ASSESSMENT: 1. Acute kidney injury secondary to valacyclovir, currently discontinued. No other nephrotoxic medications on board. The patient is not eating much. I will add IV fluids and check a chest x-ray in a.m. 2. Hypertension. Blood pressure is currently elevated. The patient was on Cozaar at home, which I will hold for now. She is also on Coreg, which we can start. 3. Metabolic acidosis. Continue to monitor for now. 4. Herpes zoster in the first trigeminal region with no evidence of herpes zoster keratitis. Maintain patient off of valacyclovir for now. PLAN: Add Coreg, add gentle IV hydration. Repeat labs in a.m. Continue with the hydralazine. The patient is advised that if her renal function continues to worsen, she will need to start dialysis and we will continue to monitor her labs on a daily basis. At this time, she appears to be fairly asymptomatic. MMODL / IJN: [id number] /
[2019-01-17] MEDS: SODIUM CHLORIDE 0.9% 1,000 ML IV SCH (20:02)
[2019-01-17 20:44] LABS: Glucose,Whole Blood 304 mg/dL (75-99)
[2019-01-17] MEDS ORDERED: INSULIN ASPART (NovoLOG) 100 UNIT/ML VIAL SQ ONE (21:07)
[2019-01-18 02:29] LABS: Glucose,Whole Blood 155 mg/dL (75-99)
[2019-01-18 06:46] LABS: Basophils % (A) 0 %; Eosinophils # (A) 0.2 k/uL (0-0.7); Eosinophils % (A) 2 %; HCT 36.1 % (34.0-46.0); HGB 11.7 gm/dL (11.4-16.0); Lymphocytes # (A) 0.9 k/uL (1.0-4.8); Lymphocytes % (A) 10 %; MCHC 32.5 g/dL (31.0-37.0); MCV 86.2 fL (80.0-100.0); Mean Platelet Volume 6.4; Monocytes # (A) 0.6 k/uL (0-1.0); Monocytes % (A) 6 %; Neutrophils # (A) 7.4 k/uL (1.3-7.7); Neutrophils % (A) 80 %; Platelet Count 274 k/uL (150-450); RBC 4.19 m/uL (3.80-5.40); RDW 15.7 % (11.5-15.5); WBC 9.3 k/uL (3.8-10.6)
[2019-01-18 06:59] LABS: Calcium 9.5 mg/dL (8.4-10.2); Potassium 4.6 mmol/L (3.5-5.1)
[2019-01-18 07:07] LABS: Glucose,Whole Blood 146 mg/dL (75-99)
[2019-01-18] MEDS: INSULIN DETEMIR (LEVEMIR) 100 UNIT/ML SYR SQ SCH (07:36)
[2019-01-18] MEDS: ENOXAPARIN 40 MG/0.4 ML SYRINGE SQ SCH (07:37)
[2019-01-18] MEDS: ISOSORBIDE MONONITRATE ER 30 MG TAB.ER.24H PO SCH (07:37)
[2019-01-18] MEDS: ASPIRIN 81 MG PO SCH (07:37)
[2019-01-18] MEDS: hydrALAZINE HCL 50 MG TAB PO SCH ×2 (07:37→21:19)
[2019-01-18] MEDS: PRASUGREL 10 MG TAB PO SCH (07:38)
[2019-01-18] MEDS: CARVEDILOL 12.5 MG TAB PO SCH ×2 (07:38→17:37)
[2019-01-18] MEDS: ATORVASTATIN 40 MG TAB PO SCH (07:38)
[2019-01-18] MEDS: FERROUS SULFATE ORAL ELIXIR 300 MG/5 ML CUP PO SCH (07:39)
--- NOTE | 2019-01-18 11:39 | PN ---
PROGRESS NOTE Patient is seen for followup for acute kidney injury. Currently, patient is comfortable, awake. She has had good urine output, about 5 L of urine documented. Patient was started on saline at about 60 mL an hour last night. Serum creatinine did go up to 6.4, although not much as it was 6.3 yesterday. No nausea or vomiting noted. PHYSICAL EXAMINATION: Blood pressure is 186/75, heart rate 101 per minute. Patient is afebrile. Examination of the heart S1, S2. Examination of the lungs, bilateral breath sounds are heard. Abdomen is soft, nontender. Exam of the lower extremities shows no significant edema. LANGUAGE ASSISTANT exam grossly intact. No are noted. LABS: Show sodium 137, potassium 4.6, chloride 103, CO2 is 20, BUN 61, serum creatinine 6.47, hemoglobin 11.7 g/dL. ASSESSMENT: 1. Acute kidney injury secondary to valacyclovir, currently nonoliguric. Renal function may be actually improving as the rise in the creatinine is not as much as it had been over the last few days. The patient has good urine output. I will continue with the IV fluids and we will repeat labs in a.m. She does not need renal replacement therapy today. 2. Hypertension. Blood pressure is better. Continue off Cozaar. Coreg was restarted. 3. Herpes zoster. Currently off valacyclovir. 4. Type 2 diabetes, maintained on Glucotrol. PLAN: Continue IV fluids. Repeat labs in a.m. Monitor on a daily basis for need for renal replacement therapy. However, I believe patient's renal function is fairly stabilized and she may actually be improving. MMODL / IJN: [id number] /
[2019-01-18] MEDS: SODIUM CHLORIDE 0.9% 1,000 ML IV SCH ×2 (12:00→21:20)
[2019-01-18 12:04] LABS: Glucose,Whole Blood 268 mg/dL (75-99)
--- NOTE | 2019-01-18 14:05 | P.PN ---
Subjective Progress Note Date: 01/18/19 This is a 73-year-old pleasant lady patient of Dr. Vance. He has underlying history of hypertension, diabetes mellitus type 2, hypertension, CAD, CK D unknown type, admitted to the emergency room secondary to dizziness, disorientation, patient was off balance, and was not able to void for approximately one day. Patient was recently treated by our nurse practitioner in the office for varicella zoster v1 distribution lesion in the right temporal region, using valacyclovir and gabapentin 100 mg hs, this was started 3 days ago. He also got to see the milled rubber tender secondary to the proximity of the lesions to the eyelid. And mentioned that there is no herpetic keratitis noted. sHe now presents to the emergency room with the above symptoms including dizziness, off balance, and was at the home yesterday, and noticed that for the entire day she was not able to void. Patient took 2 doses of Motrin that day, there is no abdominal pain, no falls, patient does not have any shaking chills,. Next Emergency room, lab shows urinalysis is negative, creatinine of 4.7 the most recent value from her computer was in May 2014 with creatinine was 0.75 patient was admitted secondary to acute kidney failure, with consultations to nephrology, urinalysis requested, along with urine eosinophils, postvoid residual, and renal ultrasound. Patient also has mild hypercalcemia of 10.7, severe gap acidosis of 25 bicarb of 16 01/17: Renal function is worsening today with BUN of 58 and creatinine 6.31. Patient is followed closely by nephrology. Patient is normally on Levemir at home which will be resumed at a lower dose of 20 units daily. Patient has had good urine output. Shingles have healed. Patient has been afebrile, heart rate 98, blood pressure 188/80, pulse ox 97% on room air. Oral hydralazine added for blood pressure control. 01/18: Repeat lab work reveals worsening renal function with BUN 61 and creatinine 6.47, hemoglobin 11.7. Blood sugars are running between 157 and 304. Patient was provided additional dose of NovoLog last evening, NovoLog scale started. Patient has been afebrile, heart rate 101, blood pressure 186/75, pulse ox 99% on room air. Dr. Gutiérrez has recommended continuing IV fluids, repeat lab work and monitor for need for dialysis. Patient states that she does not have any appetite. Decreased nausea, no blood in stools. Free lambda 7.06, urine free lambda light chain 1.750. Urine eosinophils negative. Angiotensin- converting enzyme 40. Objective - Vital Signs Vital signs: Vital Signs Temp 97.8 F 01/18/19 07:00 Pulse 101 H 01/18/19 07:00 Resp 14 01/18/19 07:00 BP 186/75 01/18/19 07:00 Pulse Ox 95 01/18/19 07:58 Intake & Output 01/17/19 01/18/19 01/18/19 18:59 06:59 18:59 Intake Total 1400 540 100 Output Total 1500 3550 Balance -100 -3010 100 Weight 85.9 kg Intake: Intake, IV Titration 480 540 Amount Sodium Chloride 0.9% 1, 480 540 000 ml @ 60 mls/hr IV . [id number] [facility] Rx#:[id number] Oral 920 100 Output: Urine 1500 3550 - Exam Review Of Systems: Constitutional: No fever, no chills, no night sweats. No weight change. No weakness, fatigue or lethargy. No daytime sleepiness. EENT: No headache. No blurred vision or double vision, no loss of vision. No loss of Hearing, no ringing in the ears, reports dizziness. No nasal drainage or congestion. No epistaxis. No sore throat. Lungs: No shortness of breath, cough, no sputum production. No wheezing. Cardiovascular: No chest pain, no lower extremity edema. No palpitations. No paroxysmal nocturnal dyspnea. No orthopnea. No lightheadedness or dizziness. No syncopal episodes. Abdominal: No abdominal pain. No nausea, vomiting. No diarrhea. No constipation. No bloody or tarry stools reports loss of appetite. Genitourinary: No dysuria, increased frequency, urgency. No urinary retention. Musculoskeletal: No myalgias. No muscle weakness, no gait dysfunction, no kwame quent falls. No back pain. No neck pain. Integumentary: No wounds, no lesions. No rash or pruritus. No unusual bruising. No change in hair or nails. Neurologic: No aphasia. No facial droop. No change in mentation. No head injury. No headache. No paralysis. No paresthesia. Psychiatric: No depression. No anxiety. No mood swings. Endocrine: Reports abnormal blood sugars. No weight change. Gen: This is a 73-year-old female. She appears to be comfortable and in no acute distress. HEENT: Head is atraumatic, normocephalic. Pupils equal, round. Sclerae is anicteric. Healing shingles lesions to the right forehead and eyelid. No involvement of the right sclera, right pupil. NECK: Supple. No JVD. No lymphadenopathy. No thyromegaly. LUNGS: Clear to auscultation. No wheezes or rhonchi. No intercostal retractions. HEART: Regular rate and rhythm. No murmur. ABDOMEN: Soft. Bowel sounds are present. No masses. No tenderness. EXTREMITIES: No pedal edema. No calf tenderness. NEUROLOGICAL: Patient is awake, alert and oriented x3. Cranial nerves 2 through 12 are grossly intact. - Labs CBC & Chem 7: 01/18/19 06:30 01/18/19 06:30 Labs: Abnormal Lab Results - Last 24 Hours (Table) 01/17/19 01/17/19 01/18/19 Range/Units 16:52 20:32 02:18 RDW (11.5-15.5) % Lymphocytes # (1.0-4.8) k/uL Carbon Dioxide (22-30) mmol/L BUN (7-17) mg/dL Creatinine (0.52-1.04) mg/dL Glucose (74-99) mg/dL POC Glucose (mg/dL) 284 H 304 H 155 H (75-99) mg/dL 01/18/19 01/18/19 01/18/19 Range/Units 06:30 06:30 06:47 RDW 15.7 H (11.5-15.5) % Lymphocytes # 0.9 L (1.0-4.8) k/uL Carbon Dioxide 20 L (22-30) mmol/L BUN 61 H (7-17) mg/dL Creatinine 6.47 H (0.52-1.04) mg/dL Glucose 157 H (74-99) mg/dL POC Glucose (mg/dL) 146 H (75-99) mg/dL 01/18/19 Range/Units 11:53 RDW (11.5-15.5) % Lymphocytes # (1.0-4.8) k/uL Carbon Dioxide (22-30) mmol/L BUN (7-17) mg/dL Creatinine (0.52-1.04) mg/dL Glucose (74-99) mg/dL POC Glucose (mg/dL) 268 H (75-99) mg/dL Assessment and Plan Plan: 1. Acute kidney failure, most likely secondary to valacyclovir as this is also been associated with acute kidney failure, as well as uremic encephalopathies, aggravated by the use of NSAIDs prior to admission, no evidence of hypotension. Nephrology consult appreciated. 2. Herpes zoster first trigeminal region right side, lesions are healing, without any evidence of cellulitis, patient was seen by ophthalmology with no herpes zoster keratitis, we will discontinue the valacyclovir at this time secondary to the adverse events. 3. Vision change with persistent negative after image reactions, possibly related to valacyclovir or gabapentin, both are discontinued, no lesions are noted in the visual field per ophthalmology. 4. Metabolic acidosis with high anion gap, possibly related to kidney failure, urine acetones negative, nephrology is following 5. Hypercalcemia, 10.6 on baseline, possibly related to dehydration, however s he is on chronic supplementation for vitamin D, sarcoid Mohamud levels. Requested along with multiple myeloma labs 6. Diabetes mellitus type 2. Metformin discontinued secondary to hypoglycemia present on admission, complicated for the use of metformin secondary to creatinine over 1.5, patient will begin a scale discontinue Januvia secondary to creatinine clearance patient will be started on Levemir 20 units daily and continue NovoLog scale. 7. CAD, on Coreg 12.5, Lipitor, aspirin 81, and effient hold Cozaar secondary to elevated creatinine with acute renal failure 8. Hyperlipidemia on Coreg DVT prophylaxis low-risk, start early ambulation and HOMER hose GI prophylaxis with Pepcid Discharge plan: Home with [facility] Impression and plan of care have been directed as dictated by the signing physician. Edna Phipps nurse practitioner acting as scribe for signing physician.
[2019-01-18] MEDS: DOCUSATE 100 MG CAP PO SCH (15:29)
[2019-01-18 17:07] LABS: Glucose,Whole Blood 279 mg/dL (75-99)
[2019-01-18] MEDS: INSULIN ASPART (NovoLOG) 100 UNIT/ML VIAL SQ SCH ×2 (17:37→21:19)
[2019-01-18 20:37] LABS: Glucose,Whole Blood 226 mg/dL (75-99)
[2019-01-19 02:29] LABS: Glucose,Whole Blood 161 mg/dL (75-99)
[2019-01-19 07:33] LABS: Glucose,Whole Blood 143 mg/dL (75-99)
[2019-01-19] MEDS: ENOXAPARIN 40 MG/0.4 ML SYRINGE SQ SCH (07:44)
[2019-01-19] MEDS: INSULIN ASPART (NovoLOG) 100 UNIT/ML VIAL SQ SCH ×2 (07:44→12:27)
[2019-01-19] MEDS: INSULIN DETEMIR (LEVEMIR) 100 UNIT/ML SYR SQ SCH (07:44)
[2019-01-19] MEDS: ATORVASTATIN 40 MG TAB PO SCH (07:45)
[2019-01-19] MEDS: hydrALAZINE HCL 50 MG TAB PO SCH (07:45)
[2019-01-19] MEDS: CARVEDILOL 12.5 MG TAB PO SCH (07:45)
[2019-01-19] MEDS: PRASUGREL 10 MG TAB PO SCH (07:45)
[2019-01-19] MEDS: FERROUS SULFATE ORAL ELIXIR 300 MG/5 ML CUP PO SCH (07:45)
[2019-01-19] MEDS: ASPIRIN 81 MG PO SCH (07:45)
[2019-01-19] MEDS: DOCUSATE 100 MG CAP PO SCH (07:45)
[2019-01-19] MEDS: ISOSORBIDE MONONITRATE ER 30 MG TAB.ER.24H PO SCH (07:45)
[2019-01-19 08:10] LABS: Calcium 9.5 mg/dL (8.4-10.2); Potassium 4.7 mmol/L (3.5-5.1)
[2019-01-19 08:22] LABS: Anisocytosis Slight; Basophils % (A) 0 %; Eosinophils # (A) 0.2 k/uL (0-0.7); Eosinophils % (A) 3 %; HCT 34.6 % (34.0-46.0); HGB 11.2 gm/dL (11.4-16.0); Hypochromasia Slight; Lymphocytes # (A) 1.1 k/uL (1.0-4.8); Lymphocytes % (A) 12 %; MCH 28.7 pg (25.0-35.0); MCHC 32.4 g/dL (31.0-37.0); MCV 88.6 fL (80.0-100.0); Monocytes # (A) 0.5 k/uL (0-1.0); Monocytes % (A) 5 %; Neutrophils # (A) 7.1 k/uL (1.3-7.7); Neutrophils % (A) 78 %; Platelet Count 259 k/uL (150-450); RDW 17.1 % (11.5-15.5); WBC 9.1 k/uL (3.8-10.6)
[2019-01-19 10:23] VITALS: BP 169/69; PULSE 90; RESP 12; TEMP 98.3
[2019-01-19 12:10] LABS: Glucose,Whole Blood 307 mg/dL (75-99)
[2019-01-19] MEDS ORDERED: glipiZIDE 5 MG TAB PO SCH (17:30)
--- NOTE | 2019-01-19 21:53 | PN ---
PROGRESS NOTE Patient is seen for followup for acute kidney injury. Her renal function has improved. Serum creatinine is down to 4.3. Patient actually wants to go home. She has had good urine output. I have advised her that she could be discharged, but she will need followup as outpatient next week. On examination this morning, blood pressure was 169/69, heart rate 90 per minute. Patient is afebrile. EXAMINATION OF THE HEART: S1 and S2. EXAMINATION OF LUNGS: Bilateral breath sounds are heard. ABDOMEN: Soft, non-tender. Examination of lower extremities shows no significant edema. Labs show sodium 141, potassium 4.7, chloride 109, CO2 17, BUN 51, serum creatinine 4.3. ASSESSMENT: 1. Acute kidney injury secondary to valacyclovir, currently improving. Patient is advised to continue to avoid nephrotoxic medications, including NSAIDs, post discharge. She remains off of valacyclovir for now. 2. Herpes zoster, currently off of valacyclovir, currently healed. 3. Hypertension. Patient was started on Coreg, as we are holding off on the Cozaar, given her acute kidney injury. 4. Type 2 diabetes, maintained on Glucotrol. PLAN: Okay for discharge. Follow up as outpatient next week. Repeat labs in 3-4 days post discharge. MMODL / IJN: [id number] /
[2019-01-20] MEDS ORDERED: ENOXAPARIN 30 MG/0.3 ML SYRINGE SQ SCH (09:00)
--- NOTE | 2019-01-20 14:47 | P.DS ---
Providers Date of admission: 01/15/19 19:33 Expected date of discharge: 01/19/19 Attending physician: Agnes Rosales Consults: 01/15/19 19:32 Consult Physician Routine Consulting Provider: Kayden Wilson Consult Reason/Comments: arf Do you want consulting provider notified?: Yes Primary care physician: [facility] Course: This is a 73-year-old pleasant lady patient of Dr. Vance. He has underlying history of hypertension, diabetes mellitus type 2, hypertension, CAD, CK D unknown type, admitted to the emergency room secondary to dizziness, disorientation, patient was off balance, and was not able to void for approximately one day. Patient was recently treated by our nurse practitioner in the office for varicella zoster v1 distribution lesion in the right temporal region, using valacyclovir and gabapentin 100 mg hs, this was started 3 days ago. He also got to see the engraved roller inspector secondary to the proximity of the lesions to the eyelid. And mentioned that there is no herpetic keratitis noted. sHe now presents to the emergency room with the above symptoms including dizziness, off balance, and was at the home yesterday, and noticed that for the entire day she was not able to void. Patient took 2 doses of Motrin that day, there is no abdominal pain, no falls, patient does not have any shaking chills,. Next Emergency room, lab shows urinalysis is negative, creatinine of 4.7 the most recent value from her computer was in May 2014 with creatinine was 0.75 patient was admitted secondary to acute kidney failure, with consultations to nephrology, urinalysis requested, along with urine eosinophils, postvoid residual, and renal ultrasound. Patient also has mild hypercalcemia of 10.7, severe gap acidosis of 25 bicarb of 16 01/17: Renal function is worsening today with BUN of 58 and creatinine 6.31. Patient is followed closely by nephrology. Patient is normally on Levemir at home which will be resumed at a lower dose of 20 units daily. Patient has had good urine output. Shingles have healed. Patient has been afebrile, heart rate 98, blood pressure 188/80, pulse ox 97% on room air. Oral hydralazine added for blood pressure control. 01/18: Repeat lab work reveals worsening renal function with BUN 61 and creatinine 6.47, hemoglobin 11.7. Blood sugars are running between 157 and 304. Patient was provided additional dose of NovoLog last evening, NovoLog scale started. Patient has been afebrile, heart rate 101, blood pressure 186/75, pulse ox 99% on room air. Dr. Gutiérrez has recommended continuing IV fluids, repea t lab work and monitor for need for dialysis. Patient states that she does not have any appetite. Decreased nausea, no blood in stools. Free lambda 7.06, urine free lambda light chain 1.750. Urine eosinophils negative. Angiotensin- converting enzyme 40. 01/19: Repeat lab work reveals hemoglobin 11.2, BUN 51 creatinine 4.33. Sodium 141, potassium 4.7, chloride 109, CO2 17. Blood sugars are running between 143 and 161. Patient remains afebrile, heart rate 90, blood pressure 169/69, pulse ox 96% on room air. Patient has been cleared for discharge by Dr. Gutiérrez. Patient have repeat blood work in Dr. Vance's office. Patient will be discharged home today in stable condition. Discharge diagnoses: 1. Acute kidney failure secondary to valacyclovir 2. Herpes zoster first trigeminal region right side, lesions are healing, without any evidence of cellulitis, patient was seen by ophthalmology with no herpes zoster keratitis 3. Vision change with persistent negative after image reactions, possibly related to valacyclovir or gabapentin 4. Metabolic acidosis with high anion gap, possibly related to kidney failure 5. Hypercalcemia 6. Diabetes mellitus type 2. 7. CAD 8. Hyperlipidemia Discharge plan: Home with [facility] Impression and plan of care have been directed as dictated by the signing physician. Edna Phipps nurse practitioner acting as scribe for signing physician. Patient Condition at Discharge: Good Plan - Discharge Summary Discharge Rx Participant: Yes New Discharge Prescriptions: New hydrALAZINE HCL [Apresoline] 50 mg PO BID #60 tab glipiZIDE [Glucotrol] 5 mg PO AC-BID #60 tab Continue Ergocalciferol [Vitamin D2 (DRISDOL)] 50,000 unit PO Q14D Aspirin EC [Ecotrin Low Dose] 81 mg PO DAILY Prasugrel [Effient] 10 mg PO DAILY Isosorbide Mononitrate ER [Imdur] 30 mg PO DAILY Iron 28mg 28 mg PO DAILY Carvedilol [Coreg] 12.5 mg PO BID Atorvastatin [Lipitor] 40 mg PO DAILY Insulin Detemir [Levemir Flextouch] 25 units SQ DAILY Discontinued sitaGLIPtin PHOSPHATE [Januvia] 100 mg PO DAILY glipiZIDE/METFORMIN HCL [glipiZIDE/METFORMIN HCL 5-500 mg] 2 tab PO BID Losartan [Cozaar] 50 mg PO DAILY valACYclovir HCL [Valtrex] 1,000 mg PO Q8H Gabapentin [Neurontin] 100 mg PO HS Discharge Medication List Ergocalciferol [Vitamin D2 (DRISDOL)] 50,000 unit PO Q14D 06/16/14 [History] Aspirin EC [Ecotrin Low Dose] 81 mg PO DAILY 01/15/19 [History] Atorvastatin [Lipitor] 40 mg PO DAILY 01/15/19 [History] Carvedilol [Coreg] 12.5 mg PO BID 01/15/19 [History] Insulin Detemir [Levemir Flextouch] 25 units SQ DAILY 01/15/19 [History] Iron 28mg 28 mg PO DAILY 01/15/19 [History] Isosorbide Mononitrate ER [Imdur] 30 mg PO DAILY 01/15/19 [History] Prasugrel [Effient] 10 mg PO DAILY 01/15/19 [History] glipiZIDE [Glucotrol] 5 mg PO AC-BID #60 tab 01/19/19 [Rx] hydrALAZINE HCL [Apresoline] 50 mg PO BID #60 tab 01/19/19 [Rx] Follow up Appointment(s)/Referral(s): Rosalind Gutiérrez MD [STAFF PHYSICIAN] - 02/09/19 11:00 am (Office asks patient to please arrive 30 minutes early New patient paperwork will be sent out in the mail to bring to this appointment) Erick Vance MD [Primary Care Provider] - 1 Week (Office will be in contact with patient upon discharge to set up a follow up appointment) Patient Instructions/Handouts: Acute Kidney Injury (DC) Discharge Disposition: HOME SELF-CARE
== END 2019-01-19 14:40 | disposition home or self-care (01) | DRG 683 ==
LOC: EC 18:20 → 4SSUR 19:33 → 4MS4W 01-18 23:04 → 4SSUR 01-18 23:04
PROVIDERS: ADMIT Family Medicine; ATTEND Family Medicine
DX: N17.9 Acute kidney failure, unspecified (principal); E87.2 Acidosis; G93.40 Encephalopathy, unspecified; E11.649 Type 2 diabetes mellitus with hypoglycemia without coma; B02.9 Zoster without complications; E83.52 Hypercalcemia; E86.0 Dehydration; T37.5X5A Adverse effect of antiviral drugs, initial encounter; I25.10 Atherosclerotic heart disease of native coronary artery without angina pectoris; N39.3 Stress incontinence (female) (male); Z79.82 Long term (current) use of aspirin; Z79.4 Long term (current) use of insulin; Z79.02 Long term (current) use of antithrombotics/antiplatelets; Z79.899 Other long term (current) drug therapy; Z98.891 History of uterine scar from previous surgery; Z90.49 Acquired absence of other specified parts of digestive tract; Z98.890 Other specified postprocedural states; Z96.652 Presence of left artificial knee joint; Y92.009 Unspecified place in unspecified non-institutional (private) residence as the place of occurrence of the external cause; Z85.828 Personal history of other malignant neoplasm of skin; I10 Essential (primary) hypertension; E78.5 Hyperlipidemia, unspecified; Z82.49 Family history of ischemic heart disease and other diseases of the circulatory system; Z95.5 Presence of coronary angioplasty implant and graft
CPT/HCPCS: 36415; 51798; 74022; 76770; 80048; 80053; 81001; 82009; 82164; 82550; 82570; 83605; 83735; 83883; 83930; 84100; 84156; 85025; 87205; 93005; 94760; 96360; 96361; 99285

== ENCOUNTER → 2020-05-03 | Outpatient (CLI) | payer MEDICARE ==
[~2020-05-03] MED LIST: REGADENOSON 0.4 MG/5 ML SYRINGE IV ONE
--- NOTE | 2020-05-03 11:36 | EST ---
EXERCISE STRESS AGE: 74 SEX: Female HT: 5'4" WT: 187 PROTOCOL: Lexiscan Cardiolite STAGE: DURATION OF EXERCISE: HEART RATE REST: 90 BLOOD PRESSURE REST: 153/64 MAXIMUM HEART RATE ACHIEVED: 97 MAXIMUM BLOOD PRESSURE: 153/64 85% MPHR: 126 100% MPHR: 148 METS: INDICATIONS: Chest pain. CLINICAL INFORMATION: Baseline EKG shows sinus rhythm with right bundle branch block. The patient was given intravenous Lexiscan as per protocol. Did not have chest pain or diagnostic ST-segment depression. CONCLUSIONS: 1. Inconclusive EKG part of the stress test due to baseline EKG abnormalities. 2. Cardiolite portion of the stress test will be reported separately. MMODL / IJN: [id number] /
--- NOTE | 2020-05-03 13:09 | NM ---
EXAMINATION TYPE: NM stress lexiscan cardiolite DATE OF EXAM: 05/03/2020 COMPARISON: NONE HISTORY: 74-year-old female with chest pain, I20.9, ischemic chest pain. TECHNIQUE: After the intravenous administration of 10 mCi Tc 99m Sestamibi - Cardiolite resting SPEC T images acquired 50 minutes post injection. The patient received 0.4mg Lexiscan, 26.9 mCi Tc 99m Sestamibi - Stress images obtained [address] injection FINDINGS: Review of stress and rest SPECT images demonstrates a moderate to large area of reversibility along t he anterior and anterolateral wall. Reversibility extends to involve the inferior wall as well. Gated analysis shows estimated left ventricular ejection fraction of 64 %. TID is calculated at 0.53 . IMPRESSION: 1. Findings suggest large area of inducible ischemia extending around from the anterior wall to the l ateral and inferior zhu. 2. Further clinical correlation and workup is recommended.
== END | disposition home or self-care (01) ==
LOC: RADNMMAIN 07:40
PROVIDERS: ATTEND Internal Medicine Geriatric Medicine
DX: R94.31 Abnormal electrocardiogram [ECG] [EKG] (principal)
CPT/HCPCS: 93017; 78452; A9500; J2785

== ENCOUNTER → 2020-05-21 | Day surgery (SDC) | payer MEDICARE ==
[2020-05-17 10:21] VITALS: BMI 32.1
[~2020-05-21] MED LIST changes: +ALPRAZolam 0.25 MG TAB PO PRN; +ALPRAZolam 0.5 MG TAB PO PRN; +ASPIRIN 325 MG TAB PO ONE; +ASPIRIN 81 MG PO SCH; +ATORVASTATIN 40 MG TAB PO SCH; +HEPARIN SODIUM 1,000 UN/ML (10ML VL) ONE; +HEPARIN SODIUM,PORCINE 10,000 UNIT in SODIUM CHLORIDE 0.9% 1,000 ML IRRIGATION PRN; +HEPARIN SODIUM,PORCINE 2,500 UNIT in SODIUM CHLORIDE 0.9% 250 ML IRRIGATION PRN; +INSULIN ASPART (NovoLOG) 100 UNIT/ML VIAL SQ ONE; +INSULIN DETEMIR (LEVEMIR) 100 UNIT/ML SYR SQ SCH; +IOPAMIDOL-370 125ML BTL INJ ONE; +ISOSORBIDE MONONITRATE ER 30 MG TAB.ER.24H PO SCH; +LIDOCAINE 1% INJ 10MG/ML (20 ML MDV) ONE; +LIDOCAINE 1% INJ 10MG/ML (20 ML MDV) SQ ONE; +NITROGLYCERIN SL TABS 0.4 MG TAB SUBLINGUAL PRN; +PANTOPRAZOLE 40 MG TABLET PO SCH; +PRASUGREL 10 MG TAB PO SCH; -REGADENOSON 0.4 MG/5 ML SYRINGE IV ONE; +RX INFO: IV CONTRAST WAS GIVEN 1 EACH MISC MISCELLANE PRN; +SODIUM CHLORIDE 0.9% 1,000 ML IV SCH; +SODIUM CHLORIDE 0.9% 1,000 ML in EMPTY BAG 1 BAG IV ONE; +VERAPAMIL 2.5 MG/ML 2 ML AMP ONE; +carvediloL 12.5 MG TAB PO SCH; +fentaNYL (PF) 50 MCG/ML 2 ML AMP IVP ONE; +fentaNYL (PF) 50 MCG/ML 2 ML AMP ONE; +hydrALAZINE HCL 50 MG TAB PO SCH
[2020-05-21 06:51] LABS: Glucose,Whole Blood 239 mg/dL (75-99)
[2020-05-21 07:00] LABS: Basophils # (A) 0.1 k/uL (0-0.2); Basophils % (A) 1 %; Eosinophils # (A) 0.2 k/uL (0-0.7); Eosinophils % (A) 3 %; HCT 28.6 % (34.0-46.0); HGB 8.5 gm/dL (11.4-16.0); Hypochromasia Marked; Lymphocytes % (A) 13 %; MCH 23.4 pg (25.0-35.0); MCHC 29.7 g/dL (31.0-37.0); MCV 78.8 fL (80.0-100.0); Mean Platelet Volume 7.1; Monocytes # (A) 0.5 k/uL (0-1.0); Monocytes % (A) 7 %; Neutrophils % (A) 75 %; Platelet Count 429 k/uL (150-450); Poikilocytosis Moderate; RBC 3.63 m/uL (3.80-5.40); RDW 15.4 % (11.5-15.5)
[2020-05-21 07:06] VITALS: RESP 16; TEMP 98.4
[2020-05-21 07:13] LABS: Potassium 4.1 mmol/L (3.5-5.1)
[2020-05-21] MEDS: MIDAZOLAM 2 MG/2 ML VIAL IVP ONE ×2 (07:50→08:00)
--- NOTE | 2020-05-21 10:04 | CC ---
CARDIAC CATHETERIZATION REPORT DATE OF SERVICE: May 21, 2020 PERFORMING PHYSICIAN: Christiano Wolfe MD. PROCEDURE PERFORMED: 1. Selective right and left coronary angiogram. 2. Left heart catheterization. INDICATION: Shortness of breath with exertion concerning for angina in this 75-year-old female patient with coronary artery disease and prior stenting of the LAD as well as diabetes and hypertension and dyslipidemia. APPROACH: Right common femoral artery. COMPLICATION: None. LEVEL OF SEDATION: Moderate with sedation length of 18 minutes. PROCEDURE DESCRIPTION: After obtaining an informed consent, the patient was brought to the cardiac mill labor supervisor. The right common femoral artery was cannulated using micropuncture technique, the micropuncture wire passed easily. Then I placed a 5-Lao sheath in the right common femoral artery. Please note that we attempted cannulating the right radial artery, but that was unsuccessful and I do think that the radial artery was occluded because under ultrasound guidance, the artery was not pulsatiling good and it looks like it was full of plaque. I did selective right and left coronary angiogram with JR4 and JL4 catheters. Left heart catheterization was performed. The JR4 catheter which crossed the aortic valve. The procedure was completed without any complication. SELECTIVE CORONARY ANGIOGRAM: 1. The right coronary artery is a large caliber vessel. It is a dominant vessel. The RCA is angiographically normal. It distally bifurcates into PDA and PLV branches, both appeared to be angiographically normal. 2. The left main is a large caliber vessel. The ostial of the left circumflex appeared to have a plaque in the range of 60%. The circumflex itself is calcified with mild disease only. 3. The LAD: The proximal LAD is stented and the stent is patent. The mid and distal LAD appeared to have mild disease only. The LAD in the midportion gives rise into a large diagonal branch which seems to be angiographically normal. HEMODYNAMICS: The LVEDP was 20 mmHg without significant gradient across the aortic valve. CONCLUSION: 1. Calcified right and left coronary systems. 2. Patent stent in the proximal left anterior descending artery. 3. Intermediate to severe lesion involving the ostial left circumflex right from the left main coronary artery. 4. Elevated LVEDP. POSTPROCEDURE MANAGEMENT: Given the above anatomy, I recommend maximized medical treatment and follow up with the patient. MMODL / IJN: [id number] /
--- NOTE | 2020-05-21 10:04 | LTR ---
DATE OF SERVICE: May 21, [address] Vance: Ms. Jessica Veras underwent today heart catheterization and that revealed patent stent in the left anterior descending artery with intermediate to severe lesion involving the ostial left circumflex coronary artery. Given the above anatomy and the absence of any high-grade stenosis, I advise maximized medical treatment and follow up with the patient. I want to thank you for allowing us to participate in her care and please do not hesitate to call if you have any questions or concerns. Sincerely, MMALISAL / IJN: [id number] /
[2020-05-21 14:36] VITALS: BP 120/56; PULSE 80
== END ==
LOC: CATHCVL 06:09
PROVIDERS: ATTEND Internal Medicine Interventional Cardiology
DX: I25.110 Atherosclerotic heart disease of native coronary artery with unstable angina pectoris (principal); I10 Essential (primary) hypertension; E78.00 Pure hypercholesterolemia, unspecified; E11.9 Type 2 diabetes mellitus without complications; E78.5 Hyperlipidemia, unspecified; Z95.5 Presence of coronary angioplasty implant and graft; Z79.84 Long term (current) use of oral hypoglycemic drugs; Z79.899 Other long term (current) drug therapy; Z88.8 Allergy status to other drugs, medicaments and biological substances
CPT/HCPCS: 93458; 80048; 85025; C1760; C1769 ×3; C1894; J2250; J2001; J3010; Q9967

== ENCOUNTER 2021-11-19 08:29 | Emergency (ER) | payer MEDICARE ==
[2021-11-19] MEDS ORDERED: SODIUM CHLORIDE 0.9% 1,000 ML IV STA ×2 (09:23)
[2021-11-19] MEDS ORDERED: ONDANSETRON 4 MG/2 ML VIAL IVP STA (09:23)
[2021-11-19] MEDS ORDERED: diphenhydrAMINE 50 MG/ML 1 ML VIAL IVP STA (09:24)
[2021-11-19] MEDS ORDERED: FAMOTIDINE 20 MG/2 ML VIAL IV STA (09:24)
[2021-11-19] MEDS ORDERED: methylPREDNISolone SOD SUCCI 125 MG/2 ML VIAL IV STA (09:24)
--- NOTE | 2021-11-19 09:57 | ED ---
Nausea/Vomiting/Diarrhea HPI - General Chief complaint: Nausea/Vomiting/Diarrhea Stated complaint: vomiting, diarrhea, rash, tongue swelling Time Seen by Provider: 11/19/21 09:14 Source: patient, RN notes reviewed Mode of arrival: ambulatory Limitations: no limitations - History of Present Illness Initial comments: 76-year-old female who states she had the onset of nausea vomiting with some diarrhea happy every 30-45 minutes throughout the night. Minimal discomfort started as abdominal pain. She also states she woke up this morning with a rash Ross her chest and arms back also lower Jacky was itchy in nature. She does not recall any new medications Plavix offers soaps. She also has slight shortness of breath and felt like her tongue was swelling a bit MD complaint: nausea, vomiting, diarrhea, other - Related Data Home Medications Medication Instructions Recorded Confirmed Ergocalciferol [Vitamin D2 50,000 unit PO Q14D 06/16/14 05/17/20 (DRISDOL)] Aspirin EC [Ecotrin Low Dose] 81 mg PO DAILY 01/15/19 05/21/20 Atorvastatin [Lipitor] 40 mg PO DAILY 01/15/19 05/21/20 Insulin Detemir [Levemir Flextouch 33 units SQ QAM 01/15/19 05/21/20 Pen] Iron 28mg 28 mg PO DAILY 01/15/19 05/21/20 Isosorbide Mononitrate ER [Imdur] 30 mg PO DAILY 01/15/19 05/21/20 Prasugrel [Effient] 10 mg PO DAILY 01/15/19 05/21/20 carvediloL [Coreg] 12.5 mg PO BID 01/15/19 05/21/20 Dulaglutide [Trulicity] 1.5 mg SQ FR 05/17/20 05/21/20 Insulin Detemir (Levemir) [Levemir] 25 unit SQ HS 05/17/20 05/21/20 Pantoprazole Sodium [Protonix] 40 mg PO DAILY 05/17/20 05/21/20 Retinovite Supplement 1 tab PO DAILY 05/17/20 Previous Rx's Medication Instructions Recorded hydrALAZINE HCL [Apresoline] 50 mg PO BID #60 tab 01/19/19 Famotidine [Pepcid] 20 mg PO BID #10 tablet 11/19/21 Magnesium 250 mg PO DAILY #7 tab 11/19/21 diphenhydrAMINE [Benadryl] 25 mg PO QID PRN #20 capsule 11/19/21 predniSONE [Deltasone] 20 mg PO BID #10 tab 11/19/21 Allergies Allergy/AdvReac Type Severity Reaction Status Date / Time latex Allergy skin Verified 11/19/21 08:40 redness Review of Systems ROS Statement: Those systems with pertinent positive or pertinent negative responses have been documented in the HPI. ROS Other: All systems not noted in ROS Statement are negative. Past Medical History Past Medical History: Coronary Artery Disease (CAD), Cancer, Diabetes Mellitus, Hyperlipidemia, Hypertension Additional Past Medical History / Comment(s): SHORTNESS OF BREATH AND FATIGUE, SKIN CA HX History of Any Multi-Drug Resistant Organisms: None Reported Past Surgical History: Section, Cholecystectomy, Heart Catheterization With Stent, Hernia Repair, Joint Replacement, Tonsillectomy Additional Past Surgical History / Comment(s): LEFT KNEE REPLACEMENT, UMBILICAL HERNIA REPAIR Past Anesthesia/Blood Transfusion Reactions: No Reported Reaction Date of Last Stent Placement:: 2014 Past Psychological History: No Psychological Hx Reported Smoking Status: Never smoker - Past Family History Father Family Medical History: Myocardial Infarction (DC) Additional Family Medical History / Comment(s): AT AGE 42 General Exam - General Exam Comments Initial Comments: Is a well-developed well-nourished awake alert oriented 4 female Limitations: no limitations General appearance: alert, anxious Head exam: Present: atraumatic, normocephalic, normal inspection Eye exam: Present: normal appearance, PERRL, EOMI. Absent: scleral icterus, conjunctival injection, periorbital swelling ENT exam: Present: mucous membranes dry, other (Prominence of the tongue on both sides.) Neck exam: Present: normal inspection, full ROM, other (No stridor JVD or bruits). Absent: tenderness, meningismus, lymphadenopathy Respiratory exam: Present: normal lung sounds bilaterally. Absent: respiratory distress, wheezes, rales, rhonchi, stridor Cardiovascular Exam: Present: regular rate, normal rhythm, normal heart sounds. Absent: systolic murmur, diastolic murmur, rubs, gallop, clicks GI/Abdominal exam: Present: soft, normal bowel sounds. Absent: distended, tenderness, guarding, rebound, rigid Extremities exam: Present: full ROM, normal capillary refill, other (Erythematous rash noted on both volar arms and forearms.). Absent: tenderness, pedal edema, joint swelling, calf tenderness Back exam: Present: normal inspection Neurological exam: Present: alert, oriented X3, CN II-XII intact Psychiatric exam: Present: normal affect, normal mood Skin exam: Present: warm, dry, intact, erythema (Erythematous rash seen on the trunk and also on the extremities.). Absent: rash Course Vital Signs 11/19/21 11/19/21 11/19/21 08:34 09:09 10:00 Temperature 98 F 98.0 F Pulse Rate 101 H 106 H 99 Respiratory 18 22 18 Rate Blood Pressure 121/79 144/81 146/75 O2 Sat by Pulse 98 94 L 98 Oximetry 11/19/21 11:10 Temperature Pulse Rate 86 Respiratory 16 Rate Blood Pressure 150/65 O2 Sat by Pulse 98 Oximetry - Reevaluation(s) Reevaluation #1: 11/19/21 13:11 Today's EKG compared with one dated 01/14/90 showing similar configuration Medical Decision Making - Medical Decision Making Patient is feeling much improved after IV hydration and we did discuss the electrolyte abnormality she will receive IV magnesium no further nausea vomiting or diarrhea she'll be discharged - Lab Data Result diagrams: 11/19/21 10:12 11/19/21 11:20 Lab Results 11/19/21 11/19/21 11/19/21 Range/Units 10:12 10:12 10:12 WBC 14.2 H (3.8-10.6) k/uL RBC 5.26 (3.80-5.40) m/uL Hgb 15.5 (11.4-16.0) gm/dL Hct 49.4 H (34.0-46.0) % MCV 93.9 (80.0-100.0) fL MCH 29.4 (25.0-35.0) pg MCHC 31.3 (31.0-37.0) g/dL RDW 14.3 (11.5-15.5) % Plt Count 392 (150-450) k/uL MPV 8.3 Neutrophils % 90 % Lymphocytes % 5 % Monocytes % 3 % Eosinophils % 1 % Basophils % 0 % Neutrophils # 12.7 H (1.3-7.7) k/uL Lymphocytes # 0.7 L (1.0-4.8) k/uL Monocytes # 0.5 (0-1.0) k/uL Eosinophils # 0.1 (0-0.7) k/uL Basophils # 0.0 (0-0.2) k/uL Sodium (137-145) mmol/L Potassium (3.5-5.1) mmol/L Chloride (98-107) mmol/L Carbon Dioxide (22-30) mmol/L Anion Gap mmol/L BUN (7-17) mg/dL Creatinine (0.52-1.04) mg/dL Est GFR (CKD-EPI)AfAm (>60 ml/min/1.73 sqM) Est GFR (CKD-EPI)NonAf (>60 ml/min/1.73 sqM) Glucose (74-99) mg/dL Calcium (8.4-10.2) mg/dL Magnesium (1.6-2.3) mg/dL Total Bilirubin (0.2-1.3) mg/dL AST (14-36) U/L ALT (4-34) U/L Alkaline Phosphatase (38-126) U/L Total Protein (6.3-8.2) g/dL Albumin (3.5-5.0) g/dL Lipase (23-300) U/L Urine Color Yellow Urine Appearance Cloudy H (Clear) Urine pH 5.5 (5.0-8.0) Ur Specific [place] 1.030 (1.001-1.035) Urine Protein 1+ H (Negative) Urine Glucose (UA) 4+ H (Negative) Urine Ketones 1+ H (Negative) Urine Blood Negative (Negative) Urine Nitrite Negative (Negative) Urine Bilirubin Negative (Negative) Urine Urobilinogen <2.0 (<2.0) mg/dL Ur Leukocyte Esterase Negative (Negative) Urine RBC 3 (0-5) /hpf Urine WBC 6 H (0-5) /hpf Ur Squamous Epith Cells 5 H (0-4) /hpf Urine Bacteria Occasional H (None) /hpf Cellular Casts 2 (0) /lpf Hyaline Casts 15 H (0-2) /lpf Urine Mucus Many H (None) /hpf Coronavirus (PCR) Not Detected (Not Detectd) 11/19/21 Range/Units 11:20 WBC (3.8-10.6) k/uL RBC (3.80-5.40) m/uL Hgb (11.4-16.0) gm/dL Hct (34.0-46.0) % MCV (80.0-100.0) fL MCH (25.0-35.0) pg MCHC (31.0-37.0) g/dL RDW (11.5-15.5) % Plt Count (150-450) k/uL MPV Neutrophils % % Lymphocytes % % Monocytes % % Eosinophils % % Basophils % % Neutrophils # (1.3-7.7) k/uL Lymphocytes # (1.0-4.8) k/uL Monocytes # (0-1.0) k/uL Eosinophils # (0-0.7) k/uL Basophils # (0-0.2) k/uL Sodium 136 L (137-145) mmol/L Potassium 4.3 (3.5-5.1) mmol/L Chloride 104 (98-107) mmol/L Carbon Dioxide 21 L (22-30) mmol/L Anion Gap 11 mmol/L BUN 20 H (7-17) mg/dL Creatinine 0.80 (0.52-1.04) mg/dL Est GFR (CKD-EPI)AfAm 84 (>60 ml/min/1.73 sqM) Est GFR (CKD-EPI)NonAf 73 (>60 ml/min/1.73 sqM) Glucose 263 H (74-99) mg/dL Calcium 8.3 L (8.4-10.2) mg/dL Magnesium 1.1 L (1.6-2.3) mg/dL Total Bilirubin 1.6 H (0.2-1.3) mg/dL AST 24 (14-36) U/L ALT 34 (4-34) U/L Alkaline Phosphatase 68 (38-126) U/L Total Protein 7.0 (6.3-8.2) g/dL Albumin 3.8 (3.5-5.0) g/dL Lipase 31 (23-300) U/L Urine Color Urine Appearance (Clear) Urine pH (5.0-8.0) Ur Specific [place] (1.001-1.035) Urine Protein (Negative) Urine Glucose (UA) (Negative) Urine Ketones (Negative) Urine Blood (Negative) Urine Nitrite (Negative) Urine Bilirubin (Negative) Urine Urobilinogen (<2.0) mg/dL Ur Leukocyte Esterase (Negative) Urine RBC (0-5) /hpf Urine WBC (0-5) /hpf Ur Squamous Epith Cells (0-4) /hpf Urine Bacteria (None) /hpf Cellular Casts (0) /lpf Hyaline Casts (0-2) /lpf Urine Mucus (None) /hpf Coronavirus (PCR) (Not Detectd) - EKG Data -: EKG Interpreted by Me EKG Comments: Sinus tachycardia rate 101 Interval 170 QRS duration 139 QT/QTC 372/4:30 left exodeviation possible left atrial enlargement nonspecific ST configuration - Radiology Data Radiology results: report reviewed (Image reviewed no acute findings), image reviewed Disposition Clinical Impression: Dehydration, Gastroenteritis, Allergic reaction, Hypomagnesemia Disposition: HOME SELF-CARE Condition: Good Instructions (If sedation given, give patient instructions): Acute Nausea and Vomiting (ED), Acute Diarrhea (ED), Dehydration (ED) Prescriptions: diphenhydrAMINE [Benadryl] 25 mg PO QID PRN #20 capsule PRN Reason: Rash predniSONE [Deltasone] 20 mg PO BID #10 tab Magnesium 250 mg PO DAILY #7 tab Famotidine [Pepcid] 20 mg PO BID #10 tablet Is patient prescribed a controlled substance at d/c from ED?: No Referrals: Erick Vance MD [Primary Care Provider] - 1-2 days Decision Date: 11/19/21 Decision Time: 13:16
[2021-11-19 10:38] LABS: Basophils % (A) 0 %; Eosinophils # (A) 0.1 k/uL (0-0.7); Eosinophils % (A) 1 %; HCT 49.4 % (34.0-46.0); HGB 15.5 gm/dL (11.4-16.0); Lymphocytes # (A) 0.7 k/uL (1.0-4.8); Lymphocytes % (A) 5 %; MCH 29.4 pg (25.0-35.0); MCHC 31.3 g/dL (31.0-37.0); MCV 93.9 fL (80.0-100.0); Mean Platelet Volume 8.3; Monocytes # (A) 0.5 k/uL (0-1.0); Monocytes % (A) 3 %; Neutrophils # (A) 12.7 k/uL (1.3-7.7); Neutrophils % (A) 90 %; Platelet Count 392 k/uL (150-450); RBC 5.26 m/uL (3.80-5.40); RDW 14.3 % (11.5-15.5); WBC 14.2 k/uL (3.8-10.6)
--- NOTE | 2021-11-19 10:39 | XR ---
EXAMINATION TYPE: XR chest 2V DATE OF EXAM: 11/19/2021 10:28 AM COMPARISON: Chest radiographs from 06/05/2014 TECHNIQUE: XR chest 2V . CLINICAL INDICATION:Female, 76 years old with history of pain; FINDINGS: Lungs/Pleura: There is no evidence of pleural effusion, focal consolidation, or pneumothorax. Partial eventration of the right hemidiaphragm. Bilateral areas of platelike atelectasis. Pulmonary vascularity: Unremarkable. Heart/mediastinum: Cardiomediastinal silhouette is unremarkable. Musculoskeletal: Multiple level degenerative disc disease changes seen throughout the spine. No acute osseous adenopathy. IMPRESSION: No acute cardiopulmonary disease/process. No significant change from prior examination.
[2021-11-19 11:47] LABS: Appearance,Urine Cloudy (Clear); Bacteria,Urine Occasional /hpf; Bilirubin,Urine Negative (Negative); Blood,Urine Negative (Negative); Cellular Casts,Urine 2 /lpf (0); Color,Urine Yellow; Glucose,Urine (UA) 4+ (Negative); Hyaline Casts,Urine 15 /lpf (0-2); Ketones,Urine 1+ (Negative); Leukocyte Esterase,Urine Negative (Negative); Mucus,Urine Many /hpf; Nitrite,Urine Negative (Negative); PH, Urine 5.5 (5.0-8.0); Protein,Urine 1+ (Negative); RBC,Urine 3 /hpf (0-5); Squamous Epithelial Cell,Urine 5 /hpf (0-4); Urobilinogen,Urine <2.0 mg/dL (<2.0); WBC,Urine 6 /hpf (0-5)
[2021-11-19 12:35] LABS: Albumin 3.8 g/dL (3.5-5.0); Calcium 8.3 mg/dL (8.4-10.2); Magnesium 1.1 mg/dL (1.6-2.3); Potassium 4.3 mmol/L (3.5-5.1); Total Bilirubin 1.6 mg/dL (0.2-1.3)
[2021-11-19] MEDS ORDERED: MAGNESIUM SULFATE-D5W PMX 1 GM in DEXTROSE/WATER 1 100ML.BAG IVPB ONE (12:47)
[2021-11-19 13:58] VITALS: BP 141/84; PULSE 76; RESP 18; TEMP 98.2
== END 2021-11-19 13:59 | disposition home or self-care (01) ==
LOC: EC 08:29
DX: T78.40XA Allergy, unspecified, initial encounter (principal); E86.0 Dehydration; K52.9 Noninfective gastroenteritis and colitis, unspecified; E83.42 Hypomagnesemia; I25.10 Atherosclerotic heart disease of native coronary artery without angina pectoris; E11.9 Type 2 diabetes mellitus without complications; E78.5 Hyperlipidemia, unspecified; I10 Essential (primary) hypertension; Z91.040 Latex allergy status; Z79.82 Long term (current) use of aspirin; Z79.899 Other long term (current) drug therapy
CPT/HCPCS: 99285; 96365; 96375 ×4; 96361 ×4; 36415; 93005; 80053; 83690; 83735; 85025; 81001; 87635; 71046; J1200; J2930; J2405; J3475

== ENCOUNTER → 2022-05-16 | Outpatient (CLI) | payer MEDICARE ==
[2022-05-16 14:56] LABS: African American GFR (CKD) >90 (>60 ml/min/1.73 sqM); Blood Urea Nitrogen 17 mg/dL (7-17); Non-African American GFR(CKD) 84 (>60 ml/min/1.73 sqM)
--- NOTE | 2022-05-18 21:19 | CT ---
EXAMINATION TYPE: CT soft tissue neck w con CT DLP: 606 mGycm, Automated exposure control for dose reduction was used. DATE OF EXAM: 05/16/2022 5:19 PM COMPARISON: None. CLINICAL INDICATION:Female, 77 years old with history of R59.1 GENERALIZED ENLARGED LYMPH NODES; PHH, Lump on left side of neck. TECHNIQUE: Standard enhanced CT of the neck. Axial sections with coronal and sagittal reformats were obtained. Palpable marker placed on the left neck and discretion of the patient. Contrast used:70cc mL of Isovue 300 with IV Contrast, Oral contrast used: none. FINDINGS: Brain: Visualized portions are grossly unremarkable. Orbits: Bilateral aphakia. Sinuses: Mild paranasal mucosal thickening. Spaces of the neck: Left palpable marker correlates with supraclavicular lesion measuring 3.1 x 2.8 c m with central low-attenuation consistent with fluid. Musculoskeletal: No acute osseous pathology. Lymph nodes: Multiple nonenlarged lymph nodes are seen along both anterior chains of the neck. Vascular structures: Patent with atherosclerotic plaque of the internal carotid arteries at the bifur cation. Thoracic Inlet/airway: Airway is patent. Mild emphysema changes are seen in the lungs. Left apical ca lcified granuloma. Partially calcified lymph nodes are seen in the mediastinum. Soft tissues/Thyroid: Thyroid and remainder of the soft tissues are unremarkable. IMPRESSION Left neck palpable marker correlates with cystic structure measuring 3.1 x 2.8 cm in the left subclav icular region. Unclear whether this is a necrotic lymph node/mass versus other etiologies. There are no additional enlarged lymph nodes identified within the neck. Further workup recommended.
== END | disposition home or self-care (01) ==
LOC: RADCTMAIN 14:14
PROVIDERS: ATTEND Internal Medicine Geriatric Medicine
DX: R22.1 Localized swelling, mass and lump, neck (principal)
CPT/HCPCS: 82565; 84520; 70491; 36415; Q9967

== ENCOUNTER 2022-06-23 11:42 | Day surgery (SDC) | payer MEDICARE ==
[2022-06-23 12:18] VITALS: TEMP 97.8
--- NOTE | 2022-06-23 13:27 | US ---
ULTRASOUND GUIDED CORE BIOPSY LEFT SUPRACLAVICULAR MASS: CLINICAL HISTORY: Left subclavicular mass FINDINGS: The procedure was explained to the patient. The risks, complications, benefits and alternatives were discussed and any questions were answered. Informed consent was obtained. Patient was placed supine on the ultrasound table and prepped and draped in the usual sterile fashion. Utilizing a 18 gauge needle, 3 passes were made into the left supraclavicular mass. Patient was stable throughout the procedure. Pathology is pending. All elements of maximal barrier technique were utilized. IMPRESSION: 1. Successful ultrasound guided core biopsy left supraclavicular mass. MTDD
[2022-06-23 13:52] VITALS: BP 149/76; PULSE 93; RESP 18
== END 2022-06-23 13:30 | disposition home or self-care (01) ==
LOC: RADPROMAIN 11:42
PROVIDERS: ATTEND Otolaryngology
DX: R22.32 Localized swelling, mass and lump, left upper limb (principal)
CPT/HCPCS: 20206; 21550; 36415; 76942; 88184; 88185; 88305; 88341; 88342

== ENCOUNTER 2022-07-23 11:57 | Day surgery (SDC) | payer MEDICARE ==
[~2022-07-23 11:57] MED LIST changes: -ALPRAZolam 0.25 MG TAB PO PRN; -ALPRAZolam 0.5 MG TAB PO PRN; -ASPIRIN 325 MG TAB PO ONE; -ASPIRIN 81 MG PO SCH; -ATORVASTATIN 40 MG TAB PO SCH; +FAMOTIDINE 20 MG/2 ML VIAL IV PRN; -HEPARIN SODIUM 1,000 UN/ML (10ML VL) ONE; -HEPARIN SODIUM,PORCINE 10,000 UNIT in SODIUM CHLORIDE 0.9% 1,000 ML IRRIGATION PRN; -HEPARIN SODIUM,PORCINE 2,500 UNIT in SODIUM CHLORIDE 0.9% 250 ML IRRIGATION PRN; +HYDROmorphone 0.5 MG/0.5 ML SYRINGE IVP PRN; -INSULIN ASPART (NovoLOG) 100 UNIT/ML VIAL SQ ONE; -INSULIN DETEMIR (LEVEMIR) 100 UNIT/ML SYR SQ SCH; -IOPAMIDOL-370 125ML BTL INJ ONE; -ISOSORBIDE MONONITRATE ER 30 MG TAB.ER.24H PO SCH; +LACTATED RINGERS 1,000 ML IV SCH; -LIDOCAINE 1% INJ 10MG/ML (20 ML MDV) ONE; -LIDOCAINE 1% INJ 10MG/ML (20 ML MDV) SQ ONE; +MIDAZOLAM 2 MG/2 ML VIAL IV PRN; -NITROGLYCERIN SL TABS 0.4 MG TAB SUBLINGUAL PRN; +ONDANSETRON 4 MG/2 ML VIAL IVP PRN; -PANTOPRAZOLE 40 MG TABLET PO SCH; -PRASUGREL 10 MG TAB PO SCH; -RX INFO: IV CONTRAST WAS GIVEN 1 EACH MISC MISCELLANE PRN; -SODIUM CHLORIDE 0.9% 1,000 ML IV SCH; -SODIUM CHLORIDE 0.9% 1,000 ML in EMPTY BAG 1 BAG IV ONE; -VERAPAMIL 2.5 MG/ML 2 ML AMP ONE; -carvediloL 12.5 MG TAB PO SCH; -fentaNYL (PF) 50 MCG/ML 2 ML AMP IVP ONE; -fentaNYL (PF) 50 MCG/ML 2 ML AMP ONE; -hydrALAZINE HCL 50 MG TAB PO SCH
[2022-07-23 12:33] LABS: Glucose,Whole Blood 142 mg/dL (70-110)
[2022-07-23] MEDS ORDERED: DEXAMETHASONE SOD PHOSPHATE 4 MG/ML 1 ML VIAL IVP ONE (12:40)
[2022-07-23] MEDS ORDERED: ONDANSETRON 4 MG/2 ML VIAL IVP ONE (12:41)
[2022-07-23] MEDS ORDERED: LIDOCAINE 2% INJ 20 MG/ML (2 ML VIAL) ONE (13:17)
[2022-07-23] MEDS ORDERED: ePHEDrine 50 MG/ML 1 ML VIAL ONE (13:17)
[2022-07-23] MEDS ORDERED: fentaNYL (PF) 50 MCG/ML 2 ML AMP ONE (13:17)
[2022-07-23] MEDS ORDERED: SUCCINYLCHOLINE CHLORIDE 200 MG/10 ML VIAL IV ONE (13:17)
[2022-07-23] MEDS ORDERED: MIDAZOLAM 2 MG/2 ML VIAL ONE (13:17)
[2022-07-23] MEDS ORDERED: PHENYLEPHRINE-0.9% NACL SYG 1,000 MCG/10 ML SYRINGE ONE (13:17)
[2022-07-23] MEDS ORDERED: PROPOFOL 10 MG/ML 20 ML VIAL IV ONE (13:17)
[2022-07-23] MEDS ORDERED: LIDOCAINE 2%-EPI 1:100,000 20 ML VIAL SQ ONE ×2 (13:56→14:17)
[2022-07-23] MEDS ORDERED: LACTATED RINGERS 1,000 ML IV ONE (14:13)
[2022-07-23] MEDS ORDERED: BACITRACIN ZINC 500 UNIT/GM OINT 28.4 GM TUBE TOPICAL ONE (14:18)
--- NOTE | 2022-07-23 14:25 | P.OP ---
Date of Procedure: 07/23/22 Preoperative Diagnosis: Left supraclavicular lymphadenopathy Postoperative Diagnosis: Same Procedure(s) Performed: Incisional biopsy left supraclavicular lymph node Anesthesia: GETA Surgeon: Mahad Garcia Estimated Blood Loss (ml): 5 Pathology: other (Left cervical lymph node biopsy) Condition: stable Disposition: PACU Indications for Procedure: Is a 77-year-old white female who noted on self-examination a left neck node. She underwent FNA which was suspicious and then a core biopsy which was indicative of lymphoma. She has seen her oncologist already who had recommended a larger tissue sample. She states that she's had PET scan since I saw her last which did show lymphadenopathy in the abdomen also Operative Findings: Approximately 3 cm left supraclavicular lymph node- firm and fixed Description of Procedure: The patient was brought in the operative suite and placed in a supine position. Patient underwent induction of general anesthesia with oral endotracheal intubation without difficulty. The patient was positioned with a head donut and shoulder roll. The patient was prepped and draped in usual aseptic fashion. 2% lidocaine with 1 100,000 epinephrine was infused subcutaneously over the left supraclavicular area at the proposed incision site. This was left for work for 7 minutes vasoconstrictive effect. A transverse low cervical incision was made left supraclavicular and carried sharply through the skin and subcutaneous tissue and platysma muscle. The mass was located deep platysma and lateral strap muscles which were incised. This mass was fixed and firm to the deeper tissues. It appeared approximate 3 cm. Due to the nature of the lesion and location it was elected to perform incisional biopsy rather than attempting complete excisional biopsy the proximity medially over the thoracic duct would be located and inferiorly may be adjacent to the lung apex. An approximate 1.5 cm diameter incisional biopsy was performed. There was some mild necrosis in the medial aspect of the node. The biopsy was sent for routine histology flow cytometry and touch preps and was sent fresh. Hemostasis was noted to be excellent. The strap muscles and platysmal muscles were closed with inverted interrupted 3-0 Vicryl suture. Subcutaneous tissue was closed with inverted interrupted 4-0 Vicryl suture skin closed with running locking 4-0 Prolene suture. Bacitracin ointment and sterile dressings were placed. Patient was allowed to emerge from anesthesia having tolerated procedure well was extubated in the operating suite and transferred to postop recovery area in satisfactory condition.
[2022-07-23 14:51] VITALS: TEMP 96.8
[2022-07-23 15:17] VITALS: RESP 20
[2022-07-23 15:18] LABS: Glucose,Whole Blood 122 mg/dL (70-110)
[2022-07-23 15:42] VITALS: BP 130/74; PULSE 81
== END 2022-07-23 15:55 ==
LOC: OR 11:57
PROVIDERS: ATTEND Otolaryngology
DX: C85.91 Non-Hodgkin lymphoma, unspecified, lymph nodes of head, face, and neck (principal); I10 Essential (primary) hypertension; E78.5 Hyperlipidemia, unspecified; I25.2 Old myocardial infarction; I25.10 Atherosclerotic heart disease of native coronary artery without angina pectoris; E11.9 Type 2 diabetes mellitus without complications; Z79.82 Long term (current) use of aspirin; Z79.899 Other long term (current) drug therapy; Z79.4 Long term (current) use of insulin
CPT/HCPCS: 88342; 88307; 88341; 38510; J2250; J0330; J1100; J0690; J2405; J3010; J2370; J2704; J2001

== ENCOUNTER 2022-07-30 09:54 | Day surgery (SDC) | payer MEDICARE ==
[~2022-07-30 09:54] MED LIST changes: +ACETAMINOPHEN TAB 500 MG TAB PO PRN; -FAMOTIDINE 20 MG/2 ML VIAL IV PRN; +HEPARIN SODIUM,PORCINE/PF 5,000 UNIT/0.5 ML SYRINGE SQ PRN; -HYDROmorphone 0.5 MG/0.5 ML SYRINGE IVP PRN; -LACTATED RINGERS 1,000 ML IV SCH; -MIDAZOLAM 2 MG/2 ML VIAL IV PRN; -ONDANSETRON 4 MG/2 ML VIAL IVP PRN; +Pre Op ABX Message 1 EACH MISC MISCELLANE ONE
[2022-07-30] MEDS ORDERED: LACTATED RINGERS 1,000 ML IV SCH (10:01)
[2022-07-30] MEDS ORDERED: LIDOCAINE 1% (10MG/ML) FOR IV START INTRADERMA PRN (10:01)
[2022-07-30 10:18] VITALS: TEMP 97.4
[2022-07-30 10:27] LABS: Glucose,Whole Blood 165 mg/dL (70-110)
[2022-07-30] MEDS ORDERED: ONDANSETRON 4 MG/2 ML VIAL ONE (10:28)
[2022-07-30] MEDS ORDERED: DEXAMETHASONE SOD PHOSPHATE 4 MG/ML 1 ML VIAL IVP ONE (10:30)
--- NOTE | 2022-07-30 10:57 | P.GSHP ---
History of Present Illness H&P Date: 07/30/22 Chief Complaint: Lymphoma This is a 77-year-old female who presents today for Port-A-Cath insertion. She has a new diagnosis of lymphoma. Past Medical History Past Medical History: Coronary Artery Disease (CAD), Cancer, Diabetes Mellitus, Hyperlipidemia, Hypertension Additional Past Medical History / Comment(s): SHORTNESS OF BREATH AND FATIGUE, SKIN CA HX, recent PET scan History of Any Multi-Drug Resistant Organisms: None Reported Past Surgical History: Section, Cholecystectomy, Heart Catheterization With Stent, Hernia Repair, Joint Replacement, Tonsillectomy Additional Past Surgical History / Comment(s): LEFT KNEE REPLACEMENT, UMBILICAL HERNIA REPAIR, cataract surgery, lymph node biopsy Past Anesthesia/Blood Transfusion Reactions: No Reported Reaction Date of Last Stent Placement:: 2014 Smoking Status: Never smoker - Past Family History Father Family Medical History: Myocardial Infarction (VT) Additional Family Medical History / Comment(s): AT AGE 42 Brother(s) Family Medical History: Cancer Additional Family Medical History / Comment(s): liver and prostate cancer Medications and Allergies Home Medications Medication Instructions Recorded Confirmed Type Ergocalciferol [Vitamin D2 50,000 unit PO Q14D 06/16/14 07/29/22 History (DRISDOL)] Aspirin EC [Ecotrin Low Dose] 81 mg PO DAILY 01/15/19 07/29/22 History Atorvastatin [Lipitor] 40 mg PO DAILY 01/15/19 07/29/22 History Insulin Detemir [Levemir Flextouch 45 units SQ QAM 01/15/19 07/29/22 History Pen] Iron 28mg 28 mg PO DAILY 01/15/19 07/29/22 History Isosorbide Mononitrate ER [Imdur] 30 mg PO DAILY 01/15/19 07/29/22 History carvediloL [Coreg] 12.5 mg PO BID 01/15/19 07/29/22 History hydrALAZINE HCL [Apresoline] 50 mg PO BID #60 tab 01/19/19 07/29/22 Rx Insulin Detemir (Levemir) [Levemir] 40 unit SQ HS 05/17/20 07/29/22 History Pantoprazole Sodium [Protonix] 40 mg PO DAILY 05/17/20 07/29/22 History Retinovite Supplement 1 tab PO DAILY 05/17/20 07/29/22 History Semaglutide [Ozempic] 1 mg SQ FR 06/11/22 07/29/22 History glipiZIDE/METFORMIN HCL 1.5 tab PO BID 06/11/22 07/29/22 History [glipiZIDE/METFORMIN HCL 5-500 mg] Ubidecarenone [Co Q-10] 200 mg PO DAILY 06/23/22 07/29/22 History Unk Multi Vitamin 1 tab PO DAILY 07/18/22 07/29/22 History Bacitracin Zinc Oint 1 applic TOPICAL BID 07/29/22 07/29/22 History Allergies Allergy/AdvReac Type Severity Reaction Status Date / Time adhesive tape Allergy redness Verified 07/30/22 10:06 latex Allergy skin Verified 07/30/22 10:06 redness tegaderm AdvReac redness/bli Uncoded 07/30/22 10:45 ster Surgical - Exam Vital Signs Temp Pulse Resp BP Pulse Ox 97.4 F L 95 16 152/70 96 07/30/22 10:14 07/30/22 10:14 07/30/22 10:14 07/30/22 10:14 07/30/22 10:14 - General well developed, well nourished, no distress - Eyes PERRL - ENT normal pinna - Neck no masses - Respiratory normal expansion - Cardiovascular Rhythm: regular - Abdomen Abdomen: soft, non tender Results - Labs Abnormal Lab Results - Last 24 Hours (Table) 07/30/22 Range/Units 10:26 POC Glucose (mg/dL) 165 H (70-110) mg/dL Assessment and Plan Assessment: Lymphoma. We'll perform Port-A-Cath insertion
[2022-07-30] MEDS ORDERED: PHENYLEPHRINE-0.9% NACL SYG 1,000 MCG/10 ML SYRINGE ONE (11:04)
[2022-07-30] MEDS ORDERED: SODIUM CHLORIDE 0.9% 100 ML BAG ONE (11:04)
[2022-07-30] MEDS ORDERED: LIDOCAINE 2% INJ 20 MG/ML (2 ML VIAL) ONE (11:04)
[2022-07-30] MEDS ORDERED: PROPOFOL 10 MG/ML 20 ML VIAL IV ONE (11:04)
[2022-07-30] MEDS ORDERED: KETAMINE 10 MG/ML 20 ML VIAL ONE (11:04)
[2022-07-30] MEDS ORDERED: fentaNYL (PF) 50 MCG/ML 2 ML AMP ONE (11:04)
[2022-07-30] MEDS ORDERED: MIDAZOLAM 2 MG/2 ML VIAL ONE (11:04)
[2022-07-30] MEDS ORDERED: ceFAZolin 1,000 MG VIAL ONE (11:04)
[2022-07-30] MEDS ORDERED: SODIUM CHLORIDE 0.9% 50 ML with ceFAZolin 2,000 MG IV ONE ×2 (11:09)
[2022-07-30] MEDS ORDERED: HEPARIN SODIUM,PORCINE 100 UNIT/ML 5 ML VIAL IV ONE (11:28)
[2022-07-30] MEDS ORDERED: BUPIVACAIN-EPI 0.25%-1:200,000 30 ML VIAL SQ ONE (11:28)
--- NOTE | 2022-07-30 11:47 | P.OP ---
Date of Procedure: 07/30/22 Preoperative Diagnosis: Lymphoma Postoperative Diagnosis: Lymphoma Procedure(s) Performed: Insertion of right subclavian Port-A-Cath Anesthesia: NITIN Surgeon: Rakesh Holder Estimated Blood Loss (ml): 5 Pathology: none sent Condition: stable Disposition: PACU Description of Procedure: The patient was placed on the operating table in the supine position. The patient received IV sedation. The patient's chest was prepped and draped in the usual sterile fashion. A roll had been placed between the shoulder blades in a longitudinal fashion. After prepping and draping the skin was anesthetized 1% local Xylocaine. And then using the Seldinger technique the subclavian vein was cannulated. A wire was placed into the vein and fluoroscopy position the wire at the atrial caval junction. Next the dilator sheath was placed over top the wire and the wire was withdrawn. The catheter was positioned at the atriocaval position. The catheter was placed through the sheath after the dilator was withdrawn. The sheath was then withdrawn. Position of the catheter was confi rmed with fluoroscopy. The Port-A-Cath was connected to the catheter. The Port-A-Cath was flushed with saline and then heparinized saline. The skin was closed interrupted 3-0 Monocryl suture. Dermabond was applied. Patient tolerated procedure well and was sent to recovery room stable condition.
[2022-07-30 12:10] VITALS: BP 129/70; PULSE 84; RESP 17
--- NOTE | 2022-07-30 12:21 | FL ---
Fluoroscopy INDICATION: Pain FINDINGS: Fluoroscopy time: 16 seconds. DAP: 0.99946 mGycm^2 Images obtained: 3. IMPRESSIONS: 1. Documentation of fluoroscopy.
[2022-07-30 12:37] LABS: Glucose,Whole Blood 123 mg/dL (70-110)
--- NOTE | 2022-07-30 12:43 | XR ---
EXAMINATION TYPE: XR chest 1V portable DATE OF EXAM: 07/30/2022 COMPARISON: 11/19/2021 INDICATION: Mediport placement TECHNIQUE: Single frontal view of the chest is obtained. FINDINGS: The heart size is normal. The pulmonary vasculature is normal. The lungs are clear. Report is on the right side with the tip in the proximal cava region. No pneumothorax is evident. IMPRESSION: 1. No acute pulmonary process. 2. No pneumothorax post right port placement. Tip is in superior vena cava region.
== END 2022-07-30 12:45 | disposition home or self-care (01) ==
LOC: OR 09:54
PROVIDERS: ATTEND Surgery
DX: C83.31 Diffuse large B-cell lymphoma, lymph nodes of head, face, and neck (principal); I25.10 Atherosclerotic heart disease of native coronary artery without angina pectoris; E11.9 Type 2 diabetes mellitus without complications; I10 Essential (primary) hypertension; E78.5 Hyperlipidemia, unspecified; Z98.891 History of uterine scar from previous surgery; Z90.49 Acquired absence of other specified parts of digestive tract; Z95.5 Presence of coronary angioplasty implant and graft; Z90.89 Acquired absence of other organs; Z96.659 Presence of unspecified artificial knee joint; Z82.49 Family history of ischemic heart disease and other diseases of the circulatory system; Z80.42 Family history of malignant neoplasm of prostate; Z80.0 Family history of malignant neoplasm of digestive organs; Z79.82 Long term (current) use of aspirin; Z79.4 Long term (current) use of insulin; Z79.899 Other long term (current) drug therapy
CPT/HCPCS: 77001; 71045; 36561; C1788; J2250; J1642; J1100; J2405; J0690; J3010; J2370; J2704; J1644; J2001

== ENCOUNTER → 2022-09-26 | Outpatient (CLI) | payer MEDICARE ==
--- NOTE | 2022-09-26 10:32 | CA ---
Transthoracic Echo Report Name: Jessica Veras Age: 77 Gender: F : 1945 Exam Date: 09/26/2022 09:08 Exam Location: [facility] [facility] Ht (in): 64 Wt (lb): 177 Ordering Physician: Kelsi Cox MD Attending/Referring Phys: [employer] Operator Fidelina Abrams RDCS Procedure CPT: Indications: Z01.818 Cardiac Hx: Technical Quality: Fair Contrast 1: Total Dose (mL): Contrast 2: Total Dose (mL): MEASUREMENTS (Male / Female) Normal Values 2D ECHO LV Diastolic Diameter PLAX 4.1 cm 4.2 - 5.9 / 3.9 - 5.3 cm LV Systolic Diameter PLAX 3.0 cm IVS Diastolic Thickness 1.0 cm 0.6 - 1.0 / 0.6 - 0.9 cm LVPW Diastolic Thickness 1.0 cm 0.6 - 1.0 / 0.6 - 0.9 cm LV Relative Wall Thickness 0.5 RV Internal Dim ED PLAX 3.4 cm LVOT Diameter 2.3 cm LA Systolic Diameter LX 3.4 cm 3.0 - 4.0 / 2.7 - 3.8 cm LV Diastolic Volume MOD BP 79.3 cm??? 67 - 155 / 56 - 104 cm??? LV Systolic Volume MOD BP 38.0 cm??? 22 - 58 / 19 - 49 cm??? LV Ejection Fraction MOD BP 52.1 % >= 55 % LV Diastolic Volume MOD 4C 75.9 cm??? LV Systolic Volume MOD 4C 34.0 cm??? LV Ejection Fraction MOD 4C 55.3 % LV Diastolic Length 4C 7.2 cm LV Systolic Length 4C 6.0 cm LV Diastolic Volume MOD 2C 80.7 cm??? LV Systolic Volume MOD 2C 40.4 cm??? LV Ejection Fraction MOD 2C 50.0 % LV Diastolic Length 2C 7.4 cm LV Systolic Length 2C 6.7 cm LA Volume 47.2 cm??? 18 - 58 / 22 - 52 cm??? M-MODE Aortic Root Diameter MM 3.2 cm MV E Point Septal Separation 0.7 cm AV Cusp Separation MM 1.6 cm DOPPLER AV Peak Velocity 215.5 cm/s AV Peak Gradient 18.6 mmHg AV Mean Velocity 163.4 cm/s AV Mean Gradient 11.5 mmHg AV Velocity Time Integral 40.7 cm LVOT Peak Velocity 126.9 cm/s LVOT Peak Gradient 6.4 mmHg AV Area Cont Eq pk 2.5 cm??? MV Area PHT 2.8 cm??? Mitral E Point Velocity 106.3 cm/s Mitral A Point Velocity 114.4 cm/s Mitral E to A Ratio 0.9 MV Deceleration Time 272.9 ms MV E' Velocity 6.3 cm/s Mitral E to MV E' Ratio 16.9 TR Peak Velocity 232.8 cm/s TR Peak Gradient 21.7 mmHg Right Ventricular Systolic Press 26.7 mmHg FINDINGS Left Ventricle Left ventricular ejection fraction is estimated at 50-55 %. Left ventricular cavity size normal. Left ventricular wall thickness normal. Right Ventricle Mild right ventricular dilatation. Right ventricular systolic pressure within normal limits. Right Atrium Normal right atrial size. Left Atrium Normal left atrial size. Mitral Valve Structurally normal mitral valve. Mitral annular calcification. No mitral stenosis, regurgitation or prolapse. Aortic Valve Aortic valve sclerosis. Mild aortic stenosis with a peak gradient of 19 mmHg and a mean gradient of 12 mmHg. Tricuspid Valve Structurally normal tricuspid valve. Trace to mild tricuspid regurgitation. Pulmonic Valve Structurally normal pulmonic valve. No pulmonic regurgitation. Pericardium Normal pericardium. No pericardial effusion. Aorta Normal size aortic root and proximal ascending aorta. CONCLUSIONS Normal LV systolic function Mild aortic stenosis Previewed by: Dr. Jose J Benitez MD (Electronically Signed) Final Date: 26 September 2022 10:32
== END | disposition home or self-care (01) ==
LOC: RADECHMAIN 08:50
PROVIDERS: ATTEND Internal Medicine Hematology & Oncology
DX: Z01.818 Encounter for other preprocedural examination (principal); I34.0 Nonrheumatic mitral (valve) insufficiency
CPT/HCPCS: 93306

== ENCOUNTER 2022-09-27 10:58 | Inpatient (IN) | payer MEDICARE ==
--- NOTE | 2022-09-27 11:58 | ED ---
General Adult HPI - General Chief complaint: Fever Stated complaint: fever,chemo pt Time Seen by Provider: 09/27/22 11:37 Source: patient, RN notes reviewed Mode of arrival: ambulatory Limitations: no limitations - History of Present Illness Initial comments: 77-year-old female presents to the emergency department with chief complaint of fever. She states that she take her temperature earlier this morning and it was 100.5. She states she states her temperature twice daily and is usually around 99. She states that she also has been feeling more tired and achy starting yesterday. She reports that she saw Dr. Cox on Thursday but was feeling fine at that time. She states she called their office earlier today and they told her to come to the emergency department. She reports that she noticed sores in her mouth last 1-2 days and pain with brushing her teeth. She has not taken anything at home for fever. [place] [id number]. [place] [id number]. Denies cough, shortness of breath, abdominal pain, nausea, vomiting, diarrhea. - Related Data Home Medications Medication Instructions Recorded Confirmed Ergocalciferol [Vitamin D2 50,000 unit PO Q14D 06/16/14 09/27/22 (DRISDOL)] Aspirin EC [Ecotrin Low Dose] 81 mg PO DAILY 01/15/19 09/27/22 Atorvastatin [Lipitor] 40 mg PO DAILY 01/15/19 09/27/22 Insulin Detemir [Levemir Flextouch 45 units SQ [id number] 01/15/19 09/27/22 Pen] Iron 28mg 28 mg PO DAILY 01/15/19 09/27/22 Isosorbide Mononitrate ER [Imdur] 30 mg PO DAILY 01/15/19 09/27/22 carvediloL [Coreg] 12.5 mg PO BID 01/15/19 09/27/22 Pantoprazole Sodium [Protonix] 40 mg PO DAILY 05/17/20 09/27/22 Retinovite Supplement 1 tab PO DAILY 05/17/20 09/27/22 Semaglutide [Ozempic] 1 mg SQ FR 06/11/22 09/27/22 glipiZIDE/METFORMIN HCL 1.5 tab PO BID 06/11/22 09/27/22 [glipiZIDE/METFORMIN HCL 5-500 mg] Lidocaine-Prilocaine Cream [Emla 1 applic TOPICAL ONCE PRN 08/08/22 09/27/22 Cream 2.5%/2.5%] Cool's Solution 5 ml PO QID PRN 09/27/22 09/27/22 Insulin Detemir [Levemir Flextouch] 40 unit SQ HS 09/27/22 09/27/22 Multivitamins, Thera [Multivitamin 1 tab PO DAILY 09/27/22 09/27/22 (formulary)] Ondansetron [Zofran] 4 - 8 mg PO Q6H PRN 09/27/22 09/27/22 Previous Rx's Medication Instructions Recorded hydrALAZINE HCL [Apresoline] 50 mg PO BID #60 tab 01/19/19 Allergies Allergy/AdvReac Type Severity Reaction Status Date / Time adhesive tape Allergy redness Verified 09/27/22 14:31 latex Allergy skin Verified 09/27/22 14:31 redness tegaderm AdvReac redness/bli Uncoded 09/27/22 11:07 ster Review of Systems ROS Statement: Those systems with pertinent positive or pertinent negative responses have been documented in the HPI. ROS Other: All systems not noted in ROS Statement are negative. Past Medical History Past Medical History: Coronary Artery Disease (CAD), Cancer, Diabetes Mellitus, Hyperlipidemia, Hypertension Additional Past Medical History / Comment(s): SHORTNESS OF BREATH AND FATIGUE, SKIN CA HX History of Any Multi-Drug Resistant Organisms: None Reported Past Surgical History: Section, Cholecystectomy, Heart Catheterization With Stent, Hernia Repair, Joint Replacement, Tonsillectomy Additional Past Surgical History / Comment(s): LEFT KNEE REPLACEMENT, UMBILICAL HERNIA REPAIR, cataract surgery Past Anesthesia/Blood Transfusion Reactions: No Reported Reaction Date of Last Stent Placement:: 2014 Past Psychological History: No Psychological Hx Reported Smoking Status: Never smoker Past Alcohol Use History: None Reported Past Drug Use History: None Reported - Past Family History Father Family Medical History: Myocardial Infarction ([place]) Additional Family Medical History / Comment(s): AT AGE 42 Brother(s) Family Medical History: Cancer Additional Family Medical History / Comment(s): liver and prostate cancer General Exam Limitations: no limitations General appearance: alert, in no apparent distress Head exam: Present: atraumatic, normocephalic, normal inspection Eye exam: Present: normal appearance, PERRL, EOMI. Absent: scleral icterus, c onjunctival injection, periorbital swelling ENT exam: Present: other (ulcer on right sided palate, ulcer on right-sided tongue, white thrush appearing on bottom gum line) Neck exam: Present: normal inspection. Absent: tenderness, meningismus, lympha denopathy Respiratory exam: Present: normal lung sounds bilaterally. Absent: respiratory distress, wheezes, rales, rhonchi, stridor Cardiovascular Exam: Present: regular rate, normal rhythm, normal heart sounds. Absent: systolic murmur, diastolic murmur, rubs, gallop, clicks GI/Abdominal exam: Present: soft, normal bowel sounds. Absent: distended, tenderness, guarding, rebound, rigid Extremities exam: Present: normal inspection, full ROM, normal capillary refill. Absent: tenderness, pedal edema, joint swelling, calf tenderness Back exam: Present: normal inspection Neurological exam: Present: alert, oriented X3 Psychiatric exam: Present: normal affect, normal mood Skin exam: Present: warm, dry, intact, normal color. Absent: rash Course Vital Signs 09/27/22 09/27/22 11:04 11:58 Temperature 98.9 F 99.3 F Pulse Rate 95 70 Respiratory 20 18 Rate Blood Pressure 135/74 123/64 O2 Sat by Pulse 99 95 Oximetry Medical Decision Making - Medical Decision Making Was pt. sent in by a medical professional or institution (, PA, HOBBING PRESS OPERATOR, urgent care, hospital, or long term...) When possible be specific @ -Patient sent in by Dr. Cox's office after patient called and reported fever Did you speak to anyone other than the patient for history (EMS, parent, family, police, friend...)? What history was obtained from this source @ -No Did you review nursing and triage notes (agree or disagree)? Why? @ -I reviewed and agree with nursing and triage notes Were old charts reviewed (outside hosp., previous admission, EMS record, old EKG, old radiological studies, urgent care reports/EKG's, long term records)? Report findings @ -Prior laboratory studies reviewed from August Differential Diagnosis (chest pain, altered mental status, abdominal pain women, abdominal pain men, vaginal bleeding, weakness, fever, dyspnea, syncope, headache, dizziness, GI bleed, back pain, seizure, CVA, palpatations, mental health, musculoskeletal)? @ -Differential Fever: Pneumonia, viral URI, endocarditis, myocarditis, pericarditis, otitis, sinusitis, peritonsillar Abscess, retropharyngeal Abscess, epiglottitis, peritonitis, appendicitis, Ilda cystitis, diverticulitis, hepatitis, colitis, U TI, PID, TOA, pyelonephritis, prostatitis, epididymitis, meningitis, encephalitis, pulmonary embolism, CVA, thyroid storm, pancreatitis, adrenal crisis, cavernous sinus thrombosis, this is not meant to be an all-inclusive list. EKG interpreted by me (3pts min.). @ -None X-rays interpreted by me (1pt min.). @ -Chest x-ray showed scattered senescent parenchymal changes, hyperinflation compatible with COPD, no evidence for infiltrate CT interpreted by me (1pt min.). @ -None done U/S interpreted by me (1pt. min.). @ -None done What testing was considered but not performed or refused? (CT, X-rays, U/S, labs)? Why? @ -None What meds were considered but not given or refused? Why? @ -None Did you discuss the management of the patient with other professionals (professionals i.e. , PA, HOBBING PRESS OPERATOR, lab, RT, psych nurse, social sciences chair, opinion polls survey worker, teacher, state highway police officer, case maker)? Give summary @ -Case is discussed with [facility] who is accepting of the admission. Was smoking cessation discussed for >3mins.? @ -No Was critical care preformed (if so, how long)? @ -No Were there social determinants of health that impacted care today? How? (Homelessness, low income, unemployed, alcoholism, drug addiction, transportation, low edu. Level, literacy, decrease access to med. care, detention, rehab)? @ -No Was there de-escalation of care discussed even if they declined (Discuss DNR or withdrawal of care, Hospice)? DNR status @ -No What co-morbidities impacted this encounter? (DM, HTN, Smoking, COPD, CAD, Cancer, CVA, ARF, Chemo, Hep., AIDS, mental health diagnosis, sleep apnea, morbid obesity)? @ -None Was patient admitted / discharged? Hospital course, mention meds given and route, prescriptions, significant lab abnormalities, going to OR and other pertinent info. @ -[Admitted. Patient is admitted to the emergency department chief complaint of fever. Patient states that she has lymphoma and is receiving chemotherapy. She states her last chemotherapy was on [id number]. She states that she takes her temperature twice daily and usually runs around 99. She states that she took her temperature at home today and her temperature was greater than 100.5. She states that she called Dr. Cox's office and they told her to come in. Patient's CBC showed a total white blood cell count of 0.5, neutrophils unable to be processed. Chest x-ray was obtained which showed parenchymal changes, no evidence for pneumonia. Patient negative for influenza, Covid, RSV. UA negative was sent for culture. At this time this source of her fever is not evident. Case was discussed with [facility] who is accepting of the admission. Patient will be admitted for neutropenic fever for IV antibiotics and with consult to infectious disease and oncology. Patient stable at time of admission. Undiagnosed new problem with uncertain prognosis? @ -No Drug Therapy requiring intensive monitoring for toxicity (Heparin, Nitro, Insulin, Cardizem)? @ -No Were any procedures done? @ -No Diagnosis/symptom? @ -Neutropenic fever Acute, or Chronic, or Acute on Chronic? @ -Acute Uncomplicated (without systemic symptoms) or Complicated (systemic symptoms)? @ -complicated Side effects of treatment? @ -No Exacerbation, Progression, or Severe Exacerbation? @ -No Poses a threat to life or bodily function? How? (Chest pain, [place], [place], pneumonia, PE, COPD, DKA, ARF, appy, cholecystitis, CVA, Diverticulitis, Homicidal, Suicidal, threat to staff... and all critical care pts) @ -yes neutropenia - Lab Data Result diagrams: 09/27/22 12:18 09/27/22 12:18 Lab Results 09/27/22 09/27/22 09/27/22 Range/Units 12:18 12:18 12:18 WBC 0.5 L* (3.8-10.6) k/uL RBC 3.04 L (3.80-5.40) m/uL Hgb 9.2 L D (11.4-16.0) gm/dL Hct 27.6 L (34.0-46.0) % MCV 90.9 (80.0-100.0) fL MCH 30.3 (25.0-35.0) pg MCHC 33.3 (31.0-37.0) g/dL RDW 18.8 H (11.5-15.5) % Plt Count 58 L D (150-450) k/uL MPV 8.5 Neutrophils # HOBBING PRESS OPERATOR Manual Slide Review Performed Anisocytosis Slight Sodium 134 L (137-145) mmol/L Potassium 3.5 (3.5-5.1) mmol/L Chloride 97 L (98-107) mmol/L Carbon Dioxide 30 (22-30) mmol/L Anion Gap 7 mmol/L BUN 7 (7-17) mg/dL Creatinine 0.54 (0.52-1.04) mg/dL Est GFR (CKD-EPI)AfAm >90 (>60 ml/min/1.73 sqM) Est GFR (CKD-EPI)NonAf >90 (>60 ml/min/1.73 sqM) Glucose 141 H (74-99) mg/dL Plasma Lactic Acid [place] (0.7-2.0) mmol/L Calcium 7.4 L (8.4-10.2) mg/dL Total Bilirubin 1.4 H (0.2-1.3) mg/dL AST 13 L (14-36) U/L ALT 23 (4-34) U/L Alkaline Phosphatase 51 (38-126) U/L Total Protein 5.8 L (6.3-8.2) g/dL Albumin 3.3 L (3.5-5.0) g/dL Urine Color Yellow Urine Appearance Clear (Clear) Urine pH 6.5 (5.0-8.0) Ur Specific [place] 1.014 (1.001-1.035) Urine Protein Trace H (Negative) Urine Glucose (UA) Negative (Negative) Urine Ketones Negative (Negative) Urine Blood Negative (Negative) Urine Nitrite Negative (Negative) Urine Bilirubin Negative (Negative) Urine Urobilinogen <2.0 (<2.0) mg/dL Ur Leukocyte Esterase Negative (Negative) Influenza Type A (PCR) (Not Detectd) Influenza Type B (PCR) (Not Detectd) RSV (PCR) (Not Detectd) SARS-CoV-2 (PCR) (Not Detectd) 09/27/22 09/27/22 Range/Units 12:18 12:18 WBC (3.8-10.6) k/uL RBC (3.80-5.40) m/uL Hgb (11.4-16.0) gm/dL Hct (34.0-46.0) % MCV (80.0-100.0) fL MCH (25.0-35.0) pg MCHC (31.0-37.0) g/dL RDW (11.5-15.5) % Plt Count (150-450) k/uL MPV Neutrophils # Manual Slide Review Anisocytosis Sodium (137-145) mmol/L Potassium (3.5-5.1) mmol/L Chloride (98-107) mmol/L Carbon Dioxide (22-30) mmol/L Anion Gap mmol/L BUN (7-17) mg/dL Creatinine (0.52-1.04) mg/dL Est GFR (CKD-EPI)AfAm (>60 ml/min/1.73 sqM) Est GFR (CKD-EPI)NonAf (>60 ml/min/1.73 sqM) Glucose (74-99) mg/dL Plasma Lactic Acid [place] 1.9 (0.7-2.0) mmol/L Calcium (8.4-10.2) mg/dL Total Bilirubin (0.2-1.3) mg/dL AST (14-36) U/L ALT (4-34) U/L Alkaline Phosphatase (38-126) U/L Total Protein (6.3-8.2) g/dL Albumin (3.5-5.0) g/dL Urine Color Urine Appearance (Clear) Urine pH (5.0-8.0) Ur Specific [place] (1.001-1.035) Urine Protein (Negative) Urine Glucose (UA) (Negative) Urine Ketones (Negative) Urine Blood (Negative) Urine Nitrite (Negative) Urine Bilirubin (Negative) Urine Urobilinogen (<2.0) mg/dL Ur Leukocyte Esterase (Negative) Influenza Type A (PCR) Not Detected (Not Detectd) Influenza Type B (PCR) Not Detected (Not Detectd) RSV (PCR) Not Detected (Not Detectd) SARS-CoV-2 (PCR) Not Detected (Not Detectd) Disposition Clinical Impression: Neutropenic fever Disposition: ADMITTED IP TO THIS HOSP Condition: Stable Is patient prescribed a controlled substance at d/c from ED?: No Time of Disposition: 13:43
[2022-09-27 12:32] LABS: Anisocytosis Slight; HCT 27.6 % (34.0-46.0); HGB 9.2 gm/dL (11.4-16.0); MCH 30.3 pg (25.0-35.0); MCHC 33.3 g/dL (31.0-37.0); MCV 90.9 fL (80.0-100.0); Mean Platelet Volume 8.5; RBC 3.04 m/uL (3.80-5.40); RDW 18.8 % (11.5-15.5)
--- NOTE | 2022-09-27 12:41 | XR ---
EXAMINATION TYPE: XR chest 2V DATE OF EXAM: 09/27/2022 COMPARISON: 07/30/2022 HISTORY: Shortness of breath TECHNIQUE: Frontal and lateral views of the chest are obtained. FINDINGS: Scattered senescent parenchymal changes noted. Hyperinflation compatible with COPD. Chronic elevation right hemidiaphragm. No evidence for infiltrate. Chronic perihilar atelectasis or parenchymal scarring. MediPort catheter is unchanged in position. Heart size is stable. Mediastinal structures are stable and grossly unremarkable. No evidence for hilar prominence. Degenerative changes dorsal spine. IMPRESSION: 1. No evidence for acute pulmonary disease.
[2022-09-27 12:47] LABS: ALT 23 U/L (4-34); AST 13 U/L (14-36); African American GFR (CKD) >90 (>60 ml/min/1.73 sqM); Albumin 3.3 g/dL (3.5-5.0); Alkaline Phosphatase 51 U/L (38-126); Anion Gap 7 mmol/L; Blood Urea Nitrogen 7 mg/dL (7-17); Calcium 7.4 mg/dL (8.4-10.2); Carbon Dioxide 30 mmol/L (22-30); Chloride 97 mmol/L (98-107); Glucose 141 mg/dL (74-99); Non-African American GFR(CKD) >90 (>60 ml/min/1.73 sqM); Potassium 3.5 mmol/L (3.5-5.1); Sodium 134 mmol/L (137-145); Total Bilirubin 1.4 mg/dL (0.2-1.3); Total Protein 5.8 g/dL (6.3-8.2)
[2022-09-27 13:11] LABS: Appearance,Urine Clear (Clear); Bilirubin,Urine Negative (Negative); Blood,Urine Negative (Negative); Color,Urine Yellow; Glucose,Urine (UA) Negative (Negative); Ketones,Urine Negative (Negative); Leukocyte Esterase,Urine Negative (Negative); Nitrite,Urine Negative (Negative); PH, Urine 6.5 (5.0-8.0); Protein,Urine Trace (Negative); Specific Gravity,Urine 1.014 (1.001-1.035); Urobilinogen,Urine <2.0 mg/dL (<2.0)
[2022-09-27 13:21] LABS: WBC 0.5 k/uL (3.8-10.6)
[2022-09-27 13:22] LABS: Platelet Count 58 k/uL (150-450)
[2022-09-27] MEDS ORDERED: NALOXONE 0.4 MG/ML 1 ML VIAL IV PRN (13:28)
[2022-09-27] MEDS ORDERED: VANCOMYCIN IV PER PHARMACY 1 EACH MISC MISCELLANE PRN (13:34)
[2022-09-27] MEDS ORDERED: CEFEPIME 2 GM in SODIUM CHLORIDE 0.9% 100 ML IVPB STA (13:41)
--- NOTE | 2022-09-27 14:11 | P.HPIM ---
History of Present Illness 72-year-old pleasant female, post chemotherapy on October 19 for lymphoma came in with complaints of fever up 100.5. Workup did not show any pneumonia patient denied any abdominal pain diarrhea nausea vomiting patient denied any signif icant cough patient denied any dysuria urine analysis is essentially within normal limits. Patient is being admitted for febrile neutropenia, with a total white count of around 500 and the neutrophil count unavailable. Infectious disease was consulted patient was started on cefepime and vancomycin. Blood cultures were obtained urine cultures were obtained. Patient does have body aches, influenza and COVID-19 were negative. REVIEW OF SYSTEMS: CONSTITUTIONAL: As mentioned in HPI HEENT: No recent visual problems or hearing problems. Denied any sore throat. CARDIOVASCULAR: No chest pain, orthopnea, PND, no palpitations, no syncope. PULMONARY: No shortness of breath, no cough, no hemoptysis. GASTROINTESTINAL: No diarrhea, no nausea, no vomiting, no abdominal pain. NEUROLOGICAL: No headaches, no weakness, no numbness. HEMATOLOGICAL: Denies any bleeding or petechiae. GENITOURINARY: Denies any burning micturition, frequency, or urgency. MUSCULOSKELETAL/RHEUMATOLOGICAL: Denies any joint pain, swelling, or any muscle pain. ENDOCRINE: Denies any polyuria or polydipsia. The rest of the 14-point review of systems is negative. PHYSICAL EXAMINATION: GENERAL: The patient is alert and oriented x3, not in any acute distress. Well developed, well nourished. HEENT: Pupils are round and equally reacting to light. EOMI. No scleral icterus. No conjunctival pallor. Normocephalic, atraumatic. No pharyngeal erythema. No thyromegaly. There is some mucositis in the aphthous ulcerations in the oral mucosa CARDIOVASCULAR: S1 and S2 present. No murmurs, rubs, or gallops. PULMONARY: Chest is clear to auscultation, no wheezing or crackles. ABDOMEN: Soft, nontender, nondistended, normoactive bowel sounds. No palpable organomegaly. MUSCULOSKELETAL: No joint swelling or deformity. EXTREMITIES: No cyanosis, clubbing, or pedal edema. NEUROLOGICAL: Gross neurological examination did not reveal any focal deficits. SKIN: No rashes. Assessment and plan -Febrile neutropenia: Source of infection is not clear patient will be on broad- spectrum antibiotics and infectious disease consult awaiting blood cultures and urine cultures -Hypovolemic hyponatremia: Patient was started on IV fluids -Coronary artery disease -Type 2 diabetes mellitus -Hyperlipidemia -Hypertension For above-mentioned chronic medical problems patient will be resumed on appropriate medications once his medications are verified DVT prophylaxis: Subcutaneous heparin twice a day Past Medical History Past Medical History: Coronary Artery Disease (CAD), Cancer, Diabetes Mellitus, Hyperlipidemia, Hypertension Additional Past Medical History / Comment(s): SHORTNESS OF BREATH AND FATIGUE, SKIN CA HX History of Any Multi-Drug Resistant Organisms: None Reported Past Surgical History: Section, Cholecystectomy, Heart Catheterization With Stent, Hernia Repair, Joint Replacement, Tonsillectomy Additional Past Surgical History / Comment(s): LEFT KNEE REPLACEMENT, UMBILICAL HERNIA REPAIR, cataract surgery Past Anesthesia/Blood Transfusion Reactions: No Reported Reaction Date of Last Stent Placement:: 2014 Past Psychological History: No Psychological Hx Reported Smoking Status: Never smoker Past Alcohol Use History: None Reported Past Drug Use History: None Reported - Past Family History Father Family Medical History: Myocardial Infarction ([place]) Additional Family Medical History / Comment(s): AT AGE 42 Brother(s) Family Medical History: Cancer Additional Family Medical History / Comment(s): liver and prostate cancer Medications and Allergies Home Medications Medication Instructions Recorded Confirmed Type Ergocalciferol [Vitamin D2 50,000 unit PO Q14D 06/16/14 08/08/22 History (DRISDOL)] Aspirin EC [Ecotrin Low Dose] 81 mg PO DAILY 01/15/19 08/08/22 History Atorvastatin [Lipitor] 40 mg PO DAILY 01/15/19 08/08/22 History Insulin Detemir [Levemir Flextouch 45 units SQ QAM 01/15/19 08/08/22 History Pen] Iron 28mg 28 mg PO DAILY 01/15/19 08/08/22 History Isosorbide Mononitrate ER [Imdur] 30 mg PO DAILY 01/15/19 08/08/22 History carvediloL [Coreg] 12.5 mg PO BID 01/15/19 08/08/22 History hydrALAZINE HCL [Apresoline] 50 mg PO BID #60 tab 01/19/19 08/08/22 Rx Insulin Detemir (Levemir) [Levemir] 40 unit SQ HS 05/17/20 08/08/22 History Pantoprazole Sodium [Protonix] 40 mg PO DAILY 05/17/20 08/08/22 History Retinovite Supplement 1 tab PO DAILY 05/17/20 08/08/22 History Semaglutide [Ozempic] 1 mg SQ FR 06/11/22 08/08/22 History glipiZIDE/METFORMIN HCL 1.5 tab PO BID 06/11/22 08/08/22 History [glipiZIDE/METFORMIN HCL 5-500 mg] Ubidecarenone [Co Q-10] 200 mg PO DAILY 06/23/22 08/08/22 History Unk Multi Vitamin 1 tab PO DAILY 07/18/22 08/08/22 History Bacitracin Zinc Oint 1 applic TOPICAL BID 07/29/22 08/08/22 History Lidocaine-Prilocaine Cream [Emla 1 applic TOPICAL ONCE PRN 08/08/22 08/08/22 History Cream 2.5%/2.5%] allopurinoL [Zyloprim] 300 mg PO DAILY 08/08/22 08/08/22 History Allergies Allergy/AdvReac Type Severity Reaction Status Date / Time adhesive tape Allergy redness Verified 09/27/22 11:07 latex Allergy skin Verified 09/27/22 11:07 redness tegaderm AdvReac redness/bli Uncoded 09/27/22 11:07 ster Physical Exam Vitals: Vital Signs Temp Pulse Resp BP Pulse Ox 09/27/22 11:58 99.3 F 70 18 123/64 95 09/27/22 11:04 98.9 F 95 20 135/74 99 Intake and Output 09/26/22 09/27/22 09/27/22 22:59 06:59 14:59 Other: Weight 80.286 kg Results CBC & Chem 7: 09/27/22 12:18 09/27/22 12:18 Labs: Abnormal Lab Results - Last 24 Hours (Table) 09/27/22 09/27/22 09/27/22 Range/Units 12:18 12:18 12:18 WBC 0.5 L* (3.8-10.6) k/uL RBC 3.04 L (3.80-5.40) m/uL Hgb 9.2 L D (11.4-16.0) gm/dL Hct 27.6 L (34.0-46.0) % RDW 18.8 H (11.5-15.5) % Plt Count 58 L D (150-450) k/uL Sodium 134 L (137-145) mmol/L Chloride 97 L (98-107) mmol/L Glucose 141 H (74-99) mg/dL Calcium 7.4 L (8.4-10.2) mg/dL Total Bilirubin 1.4 H (0.2-1.3) mg/dL AST 13 L (14-36) U/L Total Protein 5.8 L (6.3-8.2) g/dL Albumin 3.3 L (3.5-5.0) g/dL Urine Protein Trace H (Negative)
[2022-09-27] MEDS ORDERED: VANCOMYCIN 1,500 MG in SODIUM CHLORIDE 0.9% 500 ML 500 ML IVPB ONE (14:30)
[2022-09-27] MEDS ORDERED: [UNRECOGNIZED DRUG - OTHER] PO PRN (15:13)
[2022-09-27] MEDS ORDERED: ACETAMINOPHEN TAB 325 MG TAB PO PRN (15:20)
[2022-09-27] MEDS ORDERED: ONDANSETRON 4 MG/2 ML VIAL IVP PRN (15:20)
[2022-09-27] MEDS: SODIUM CHLORIDE 0.9% 1,000 ML IV SCH (16:08)
[2022-09-27 17:12] LABS: Glucose,Whole Blood 117 mg/dL (70-110)
[2022-09-27] MEDS: carvediloL 12.5 MG TAB PO SCH (17:24)
[2022-09-27] MEDS: MAG HYDROX/AL HYDROX/SIMETH 30 ML, LIDOCAINE VISCOUS 2% 30 ML, diphenhydrAMINE ELIXIR 7... PO SCH ×8 (17:24→20:51)
[2022-09-27] MEDS: INSULIN DETEMIR (LEVEMIR) 100 UNIT/ML SYR SQ SCH (20:50)
[2022-09-27 20:51] LABS: Glucose,Whole Blood 198 mg/dL (70-110)
[2022-09-27] MEDS: FAMOTIDINE 20 MG TAB PO SCH (20:51)
[2022-09-27] MEDS: HEPARIN SODIUM,PORCINE/PF 5,000 UNIT/0.5 ML SYRINGE SQ SCH (20:51)
[2022-09-27] MEDS: glipiZIDE 5 MG TAB PO SCH (20:51)
[2022-09-27] MEDS: metFORMIN 500 MG TAB PO SCH (20:51)
[2022-09-28] MEDS: VANCOMYCIN 1,500 MG in SODIUM CHLORIDE 0.9% 500 ML 500 ML IVPB SCH ×2 (02:42→14:07)
[2022-09-28] MEDS: SODIUM CHLORIDE 0.9% 1,000 ML IV SCH ×2 (05:14→17:34)
[2022-09-28 05:24] LABS: Glucose,Whole Blood 84 mg/dL (70-110)
[2022-09-28 07:34] LABS: Anisocytosis Slight; HCT 24.8 % (34.0-46.0); HGB 8.4 gm/dL (11.4-16.0); MCH 31.3 pg (25.0-35.0); MCHC 33.9 g/dL (31.0-37.0); MCV 92.2 fL (80.0-100.0); Mean Platelet Volume 8.3; RBC 2.69 m/uL (3.80-5.40)
[2022-09-28 08:02] LABS: Glucose,Whole Blood 114 mg/dL (70-110)
[2022-09-28 08:02] LABS: African American GFR (CKD) >90 (>60 ml/min/1.73 sqM); Anion Gap 8 mmol/L; Blood Urea Nitrogen 6 mg/dL (7-17); Calcium 6.8 mg/dL (8.4-10.2); Carbon Dioxide 25 mmol/L (22-30); Chloride 104 mmol/L (98-107); Glucose 83 mg/dL (74-99); Magnesium 1.3 mg/dL (1.6-2.3); Non-African American GFR(CKD) >90 (>60 ml/min/1.73 sqM); Potassium 3.2 mmol/L (3.5-5.1); Sodium 137 mmol/L (137-145)
[2022-09-28 08:08] LABS: Platelet Count 48 k/uL (150-450); WBC 1.2 k/uL (3.8-10.6)
[2022-09-28] MEDS: INSULIN DETEMIR (LEVEMIR) 100 UNIT/ML SYR SQ SCH ×2 (09:06→21:11)
[2022-09-28] MEDS: ASPIRIN 81 MG PO SCH (09:06)
[2022-09-28] MEDS: MULTIVITAMINS, THERA 1 EACH TAB PO SCH (09:06)
[2022-09-28] MEDS: FAMOTIDINE 20 MG TAB PO SCH ×2 (09:06→21:11)
[2022-09-28] MEDS: ATORVASTATIN 40 MG TAB PO SCH (09:06)
[2022-09-28] MEDS: HEPARIN SODIUM,PORCINE/PF 5,000 UNIT/0.5 ML SYRINGE SQ SCH ×2 (09:06→21:11)
[2022-09-28] MEDS: ISOSORBIDE MONONITRATE ER 30 MG TAB.ER.24H PO SCH (09:06)
[2022-09-28] MEDS: metFORMIN 500 MG TAB PO SCH ×3 (09:06→21:11)
[2022-09-28] MEDS: VIT A,C & E-LUTEIN-MINERALS 1 EACH TAB PO SCH (09:07)
[2022-09-28] MEDS: MAG HYDROX/AL HYDROX/SIMETH 30 ML, LIDOCAINE VISCOUS 2% 30 ML, diphenhydrAMINE ELIXIR 7... PO SCH ×12 (09:07→21:12)
[2022-09-28] MEDS: carvediloL 12.5 MG TAB PO SCH ×2 (09:07→16:48)
[2022-09-28] MEDS: glipiZIDE 5 MG TAB PO SCH ×3 (09:07→21:11)
[2022-09-28] MEDS: OLANZapine 2.5 MG TAB PO SCH (09:07)
[2022-09-28 11:34] LABS: Glucose,Whole Blood 213 mg/dL (70-110)
[2022-09-28] MEDS ORDERED: Magnesium Replacement Protocol 1 EACH MISC MISCELLANE PRN (15:54)
--- NOTE | 2022-09-28 15:56 | P.PN ---
Subjective Progress Note Date: 09/28/22 72-year-old pleasant female, post chemotherapy on October 19 for lymphoma came in with complaints of fever up 100.5. Workup did not show any pneumonia patient denied any abdominal pain diarrhea nausea vomiting patient denied any significant cough patient denied any dysuria urine analysis is essentially withi n normal limits. Patient is being admitted for febrile neutropenia, with a total white count of around 500 and the neutrophil count unavailable. Infectious disease was consulted patient was started on cefepime and vancomycin. Blood cultures were obtained urine cultures were obtained. Patient does have body aches, influenza and COVID-19 were negative. 09/28/2022 Patient is evaluated today on the medical floor. No nausea, vomiting, diarrhea and tolerating diet. Fever improving, and patient remains on room air. Infectious disease is following the patient. Patient is pending blood cultures and remains on IV vancomycin. Review of Systems Constitutional: Denied any fatigue denied any fever. Cardio vascular: denied any chest pain, palpitations Gastrointestinal: denied any nausea, vomiting, diarrhea Pulmonary: Denied any shortness of breath cough Neurologic denied any new focal deficits All inpatient medications were reviewed and appropriate changes in these medications as dictated in the interval history and assessment and plan. PHYSICAL EXAMINATION: GENERAL: The patient is alert and oriented x3, not in any acute distress. Well developed, well nourished. HEENT: Pupils are round and equally reacting to light. EOMI. No scleral icterus. No conjunctival pallor. Normocephalic, atraumatic. No pharyngeal erythema. No thyromegaly. There is some mucositis in the aphthous ulcerations in the oral mucosa CARDIOVASCULAR: S1 and S2 present. No murmurs, rubs, or gallops. PULMONARY: Chest is clear to auscultation, no wheezing or crackles. ABDOMEN: Soft, nontender, nondistended, normoactive bowel sounds. No palpable organomegaly. MUSCULOSKELETAL: No joint swelling or deformity. EXTREMITIES: No cyanosis, clubbing, or pedal edema. NEUROLOGICAL: Gross neurological examination did not reveal any focal deficits. SKIN: No rashes. Assessment and plan -Febrile neutropenia: Source of infection is not clear patient will be on broad- spectrum antibiotics and infectious disease consult awaiting blood cultures and urine cultures -Pancytopenia patient is currently on chemotherapy for lymphoma -Hypovolemic hyponatremia: Patient was started on IV fluids, sodium is normalized. -Hypokalemia/hypomagnesemia -Coronary artery disease -Type 2 diabetes mellitus -Hyperlipidemia -Hypertension DVT prophylaxis: Subcutaneous heparin twice a day GI prophylaxis Full Code Plan Continue IV antibiotics and supportive care. IV fluids running. Replace electrolytes and follow up Am labs. Possible DC home in the next 24 hours The impression and plan of care has been dictated by Lorna Ortiz, Nurse Practitioner as directed. Dr. Haris MD I have performed a history and physical examination and medical decision making of this patient, discussed the same with the dictator, and agree with the dictators assessment and plan as written, documented as a scribe. Based on total visit time, I have performed more than 50% of this visit. Objective - Vital Signs Vital signs: Vital Signs Temp 98.5 F 09/28/22 14:05 Pulse 101 H 09/28/22 14:05 Resp 17 09/28/22 14:05 BP 157/67 09/28/22 14:05 Pulse Ox 92 L 09/28/22 14:05 FiO2 Intake & Output 09/27/22 09/28/22 09/28/22 18:59 06:59 18:59 Intake Total 698 790 8036 Balance 582 950 4876 Weight 80.286 kg Intake: Intake, IV Titration 675 1400 Amount Cefepime 2 gm In Sodium 100 Chloride 0.9% 100 ml @ 200 mls/hr IVPB ONCE STA Rx#:[id number] Sodium Chloride 0.9% 1, 75 900 000 ml @ 75 mls/hr IV . [id number] [facility] Rx#:[id number] Vancomycin 1,500 mg In 500 500 Sodium Chloride 0.9% 500 ml 500 ml @ 167 mls/hr IVPB Q12H [facility] Rx#: [id number] Oral 425 Other: # Voids 3 - Labs CBC & Chem 7: 09/28/22 07:00 09/28/22 07:00 Labs: Abnormal Lab Results - Last 24 Hours (Table) 09/27/22 09/27/22 09/28/22 Range/Units 17:10 20:50 07:00 WBC (3.8-10.6) k/uL RBC (3.80-5.40) m/uL Hgb (11.4-16.0) gm/dL Hct (34.0-46.0) % RDW (11.5-15.5) % Plt Count (150-450) k/uL Potassium 3.2 L (3.5-5.1) mmol/L BUN 6 L (7-17) mg/dL Creatinine 0.49 L (0.52-1.04) mg/dL POC Glucose (mg/dL) 117 H 198 H (70-110) mg/dL Calcium 6.8 L (8.4-10.2) mg/dL Magnesium 1.3 L (1.6-2.3) mg/dL 09/28/22 09/28/22 09/28/22 Range/Units 07:00 08:00 11:33 WBC 1.2 L* (3.8-10.6) k/uL RBC 2.69 L (3.80-5.40) m/uL Hgb 8.4 L (11.4-16.0) gm/dL Hct 24.8 L (34.0-46.0) % RDW 19.0 H (11.5-15.5) % Plt Count 48 L (150-450) k/uL Potassium (3.5-5.1) mmol/L BUN (7-17) mg/dL Creatinine (0.52-1.04) mg/dL POC Glucose (mg/dL) 114 H 213 H (70-110) mg/dL Calcium (8.4-10.2) mg/dL Magnesium (1.6-2.3) mg/dL Assessment and Plan Time with Patient: Less than 30
[2022-09-28] MEDS: POTASSIUM CHLORIDE ER 20 MEQ TAB.ER PO SCH ×2 (16:43→18:33)
[2022-09-28 17:25] LABS: Glucose,Whole Blood 166 mg/dL (70-110)
[2022-09-28] MEDS: MAGNESIUM SULFATE-D5W PMX 1 GM in DEXTROSE/WATER 1 100ML.BAG IVPB SCH ×2 (17:30→20:04)
--- NOTE | 2022-09-28 17:47 | P.CONS ---
History of Present Illness - Reason for Consult Consult date: 09/28/22 febrile neutropenia Requesting physician: Lorena Carballo - Chief Complaint Fevers and mouth sores - History of Present Illness is a very pleasant 77-year-old female with a history recently found non- Hodgkin's lymphoma, BCL 2 positive, on chemotherapy with R-luciano-CHP, status post cycle 3 given on 09/18/22, who is here for febrile neutropenia. She presented to the hospital because of fevers of 101.2 at home as well as excessive weakness. Workup in the ER revealed severe neutropenia with a WBC of 0.5, as well as anemia and thrombocytopenia, platelets 58 and hemoglobin 9.2. Creatinine was normal at 0.5 however her sodium was slightly low at 134. She was afebrile however temperature has been up to 99. Blood cultures were obtained and she was started on antibiotics with vancomycin and cefepime and admitted for febrile neutropenia. Given some hydration. Feels much better today. Remains afebrile with increased WBC of 1.2 today. No differential was obtained. Continues to have mild tachycardia, up to 101 heart rate. No other complaints at this point. Oncologic History: This is a very nice lady who presented with palpable left supraclavicular node,she first noticed in April/2022,she was evaluated by DR Vance and referred to Dr Garcia,she had CT soft tissue neck on 05/16/2022 which revealed 3.1 x2.8 cm left supraclavicular node,FNA on 06/04/2022 was not diagnostic,core biopsy on 06/23/2022 was positive for necrotic poorly differentiated malignant neoplasm favoribg diffuse large B cell lymphoma,no germinal center,BCL2 positive,weakly positive for MUM1,flow did not show any viable cells,,KI 67 could not be done. Echocardiogram on 07/10/2022 revealed normal EF.(low normal) PET scan on 07/18/2022,revealed suspicious uptake in supraclavicular nodes,retrocaval,periaortic and mesenteric nodes. 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 She had a rufina cath placed on 07/30/2022. On 08/08/2022,she started RCHP, had once cycle and then changed to luciano RCHP (as soon as it was approved for her stage) Repeat PET scan on 09/19/2022 revealed completed response. 09/18/22: Received C3 of luciano RCHP 09/24/22: Follow up with Dr. Cox. She feels tired,tolerating chemo well,no nausea or vomiting,no neuropathy,intermittent mout sores,she is monitoring her BS at home and adjusting insulin dose. Continue with chemotherapy as scheduled. Past Medical History Past Medical History: Coronary Artery Disease (CAD), Cancer, Diabetes Mellitus, Hyperlipidemia, Hypertension Additional Past Medical History / Comment(s): SHORTNESS OF BREATH AND FATIGUE, SKIN CA HX History of Any Multi-Drug Resistant Organisms: None Reported Past Surgical History: Section, Cholecystectomy, Heart Catheterization With Stent, Hernia Repair, Joint Replacement, Tonsillectomy Additional Past Surgical History / Comment(s): LEFT KNEE REPLACEMENT, UMBILICAL HERNIA REPAIR, cataract surgery Past Anesthesia/Blood Transfusion Reactions: No Reported Reaction Date of Last Stent Placement:: 2014 Past Psychological History: No Psychological Hx Reported Smoking Status: Never smoker Past Alcohol Use History: None Reported Past Drug Use History: None Reported - Past Family History Father Family Medical History: Myocardial Infarction ([place]) Additional Family Medical History / Comment(s): AT AGE 42 Brother(s) Family Medical History: Cancer Additional Family Medical History / Comment(s): liver and prostate cancer Medications and Allergies Home Medications Medication Instructions Recorded Confirmed Type Ergocalciferol [Vitamin D2 50,000 unit PO Q14D 06/16/14 09/27/22 History (CORTEZ)] Aspirin EC [Ecotrin Low Dose] 81 mg PO DAILY 01/15/19 09/27/22 History Atorvastatin [Lipitor] 40 mg PO DAILY 01/15/19 09/27/22 History Insulin Detemir [Levemir Flextouch 45 units SQ AC-BRKFST 01/15/19 09/27/22 History Pen] Iron 28mg 28 mg PO DAILY 01/15/19 09/27/22 History Isosorbide Mononitrate ER [Imdur] 30 mg PO DAILY 01/15/19 09/27/22 History carvediloL [Coreg] 12.5 mg PO BID 01/15/19 09/27/22 History hydrALAZINE HCL [Apresoline] 50 mg PO BID #60 tab 01/19/19 09/27/22 Rx Pantoprazole Sodium [Protonix] 40 mg PO DAILY 05/17/20 09/27/22 History Retinovite Supplement 1 tab PO DAILY 05/17/20 09/27/22 History Semaglutide [Ozempic] 1 mg SQ FR 06/11/22 09/27/22 History glipiZIDE/METFORMIN HCL 1.5 tab PO BID 06/11/22 09/27/22 History [glipiZIDE/METFORMIN HCL 5-500 mg] Lidocaine-Prilocaine Cream [Emla 1 applic TOPICAL ONCE PRN 08/08/22 09/27/22 History Cream 2.5%/2.5%] Cool's Solution 5 ml PO QID PRN 09/27/22 09/27/22 History Insulin Detemir [Levemir Flextouch] 40 unit SQ HS 09/27/22 09/27/22 History Multivitamins, Thera [Multivitamin 1 tab PO DAILY 09/27/22 09/27/22 History (formulary)] Ondansetron [Zofran] 4 - 8 mg PO Q6H PRN 09/27/22 09/27/22 History Allergies Allergy/AdvReac Type Severity Reaction Status Date / Time adhesive tape Allergy redness Verified 09/27/22 14:31 latex Allergy skin Verified 09/27/22 14:31 redness tegaderm AdvReac redness/bli Uncoded 09/27/22 11:07 ster Physical Exam Vitals: Vital Signs Temp Pulse Pulse Resp BP BP Pulse Ox 09/28/22 14:05 98.5 F 101 H 17 157/67 92 L 09/28/22 08:00 99.4 F 101 H 16 151/76 93 L 09/28/22 02:22 99 F 92 20 112/73 94 L 09/27/22 19:43 98.1 F 91 20 137/68 96 Intake and Output 09/28/22 09/28/22 09/28/22 06:59 14:59 22:59 Intake Total 425 1400 Balance 425 1400 Intake: Intake, IV Titration 1400 Amount Sodium Chloride 0.9% 1, 900 000 ml @ 75 mls/hr IV . [id number] [facility] Rx#:[id number] Vancomycin 1,500 mg In 500 Sodium Chloride 0.9% 500 ml 500 ml @ 167 mls/hr IVPB Q12H [facility] Rx#: [id number] Oral 425 Other: # Voids 3 No respiratory distress. Tachycardic. Alert and oriented x 3. In no acute distress. No jaundice. Conjunctival pallor. She does have slightly raw appearing gums and few areas of mucositis. Results CBC & Chem 7: 09/28/22 07:00 09/28/22 07:00 Labs: Abnormal Lab Results - Last 24 Hours (Table) 09/27/22 09/27/22 09/28/22 Range/Units 17:10 20:50 07:00 WBC (3.8-10.6) k/uL RBC (3.80-5.40) m/uL Hgb (11.4-16.0) gm/dL Hct (34.0-46.0) % RDW (11.5-15.5) % Plt Count (150-450) k/uL Potassium 3.2 L (3.5-5.1) mmol/L BUN 6 L (7-17) mg/dL Creatinine 0.49 L (0.52-1.04) mg/dL POC Glucose (mg/dL) 117 H 198 H (70-110) mg/dL Calcium 6.8 L (8.4-10.2) mg/dL Magnesium 1.3 L (1.6-2.3) mg/dL 09/28/22 09/28/22 09/28/22 Range/Units 07:00 08:00 11:33 WBC 1.2 L* (3.8-10.6) k/uL RBC 2.69 L (3.80-5.40) m/uL Hgb 8.4 L (11.4-16.0) gm/dL Hct 24.8 L (34.0-46.0) % RDW 19.0 H (11.5-15.5) % Plt Count 48 L (150-450) k/uL Potassium (3.5-5.1) mmol/L BUN (7-17) mg/dL Creatinine (0.52-1.04) mg/dL POC Glucose (mg/dL) 114 H 213 H (70-110) mg/dL Calcium (8.4-10.2) mg/dL Magnesium (1.6-2.3) mg/dL Chest x-ray: report reviewed Assessment and Plan Assessment: 1. Febrile neutropenia 2. Pancytopenia due to chemotherapy 3. Electrolyte derangement 4. Dehydration 5. NHL on chemotherapy 6. Mucositis due to chemotherapy Plan: Ms. Veras is a very pleasant 77 yo female with history of recently found NHL, on curative chemotherapy with R-luciano-CHP s/p C3 on 09/18/22 with Neulasta who is here for fevers and and weakness as well as mouth sores. Work up with villanueva cytopenia from chemo, including severe neutropenia. - Febrile neutropenia, s/p neulasta. Monitor for now. WBC improved, however no differential run today. Will repeat CBCD tomorrow. Awaiting cultures. CXR negative. Fever improving. On broad spectrum antibiotics with vanco/cefepime and ID following. - Dehydration, agree with continued fluids - Pancytopenia, due to chemotherapy, monitor CBCD and transfuse to maintain Hgb >7 and plt >15 - Electrolyte derangement, replace as needed - Mucositis from chemotherapy, supportive care with Jayden's solution - NHL on curative chemo with R-luciano-CHP, s/p C3. Pt will likely recover prior to C4 being due, however she will need to follow up OP prior to C4 to ensure no adjustments to her treatment are necessary. - If cultures negative and WBC normalizes with ANC> 1, no objections to discharge from oncology standpoint over the next 12 days with antibiotics as per ID recommendations Discussed with and her at bedside, and they are agreeable. All questions answered.
--- NOTE | 2022-09-28 19:32 | P.CONS ---
History of Present Illness - Reason for Consult Consult date: 09/28/22 - History of Present Illness Patient is a 77-year-old female with a past medical his significant for lymphoma but the patient is currently on chemotherapy through the right chest wall [facility] last chemotherapy has been 09/18/2022 patient presenting to [facility] ER yesterday morning for evaluation of fever. Patient did have a temperature of 100.5 F and has not been feeling well for the last day until her has been complaining of feeling more tired and achy patient also complaining of sores in her mouth for the last day or 2 however denies having any difficulty swallowing or difficulty breathing no URI symptoms no chest pain no shortness of breath or cough no nausea no vomiting no abdominal pain or any diarrhea with the symptoms the patient has been evaluated on presentation to the hospital she did have a low-grade fever of 99.3 degrees for night patient was mildly tachycardic O2 sats of 92 to 93% on room air patient did have a white count of 0.5 platelet count is 58 kidney function is normal bilirubin mildly elevated urine was negative influenza RSV COVID testing was negative patient did have a chest x-ray no evidence for acute pulmonary disease patient was started on vancomycin and did receive a dose of cefepime infectious disease was consulted for further management of antibiotic therapy patient did have blood cultures obtained which are currently pending at this point Past Medical History Past Medical History: Coronary Artery Disease (CAD), Cancer, Diabetes Mellitus, Hyperlipidemia, Hypertension Additional Past Medical History / Comment(s): SHORTNESS OF BREATH AND FATIGUE, SKIN CA HX History of Any Multi-Drug Resistant Organisms: None Reported Past Surgical History: Section, Cholecystectomy, Heart Catheterization With Stent, Hernia Repair, Joint Replacement, Tonsillectomy Additional Past Surgical History / Comment(s): LEFT KNEE REPLACEMENT, UMBILICAL HERNIA REPAIR, cataract surgery Past Anesthesia/Blood Transfusion Reactions: No Reported Reaction Date of Last Stent Placement:: 2014 Past Psychological History: No Psychological Hx Reported Smoking Status: Never smoker Past Alcohol Use History: None Reported Past Drug Use History: None Reported - Past Family History Father Family Medical History: Myocardial Infarction ([place]) Additional Family Medical History / Comment(s): AT AGE 42 Brother(s) Family Medical History: Cancer Additional Family Medical History / Comment(s): liver and prostate cancer Medications and Allergies Home Medications Medication Instructions Recorded Confirmed Type Ergocalciferol [Vitamin D2 50,000 unit PO Q14D 06/16/14 09/27/22 History (DRISDOL)] Aspirin EC [Ecotrin Low Dose] 81 mg PO DAILY 01/15/19 09/27/22 History Atorvastatin [Lipitor] 40 mg PO DAILY 01/15/19 09/27/22 History Insulin Detemir [Levemir Flextouch 45 units SQ AC-BRKFST 01/15/19 09/27/22 History Pen] Iron 28mg 28 mg PO DAILY 01/15/19 09/27/22 History Isosorbide Mononitrate ER [Imdur] 30 mg PO DAILY 01/15/19 09/27/22 History carvediloL [Coreg] 12.5 mg PO BID 01/15/19 09/27/22 History hydrALAZINE HCL [Apresoline] 50 mg PO BID #60 tab 01/19/19 09/27/22 Rx Pantoprazole Sodium [Protonix] 40 mg PO DAILY 05/17/20 09/27/22 History Retinovite Supplement 1 tab PO DAILY 05/17/20 09/27/22 History Semaglutide [Ozempic] 1 mg SQ FR 06/11/22 09/27/22 History glipiZIDE/METFORMIN HCL 1.5 tab PO BID 06/11/22 09/27/22 History [glipiZIDE/METFORMIN HCL 5-500 mg] Lidocaine-Prilocaine Cream [Emla 1 applic TOPICAL ONCE PRN 08/08/22 09/27/22 History Cream 2.5%/2.5%] Cool's Solution 5 ml PO QID PRN 09/27/22 09/27/22 History Insulin Detemir [Levemir Flextouch] 40 unit SQ HS 09/27/22 09/27/22 History Multivitamins, Thera [Multivitamin 1 tab PO DAILY 09/27/22 09/27/22 History (formulary)] Ondansetron [Zofran] 4 - 8 mg PO Q6H PRN 09/27/22 09/27/22 History Allergies Allergy/AdvReac Type Severity Reaction Status Date / Time adhesive tape Allergy redness Verified 09/27/22 14:31 latex Allergy skin Verified 09/27/22 14:31 redness tegaderm AdvReac redness/bli Uncoded 09/27/22 11:07 ster Physical Exam Vitals: Vital Signs Temp Pulse Pulse Resp BP BP Pulse Ox 09/28/22 08:00 99.4 F 101 H 16 151/76 93 L 09/28/22 02:22 99 F 92 20 112/73 94 L 09/27/22 19:43 98.1 F 91 20 137/68 96 Intake and Output 09/27/22 09/28/22 09/28/22 22:59 06:59 14:59 Intake Total 827 853 7729 Balance 243 696 1113 Intake: Intake, IV Titration 675 1400 Amount Cefepime 2 gm In Sodium 100 Chloride 0.9% 100 ml @ 200 mls/hr IVPB ONCE STA Rx#:[id number] Sodium Chloride 0.9% 1, 75 900 000 ml @ 75 mls/hr IV . [id number] [facility] Rx#:[id number] Vancomycin 1,500 mg In 500 500 Sodium Chloride 0.9% 500 ml 500 ml @ 167 mls/hr IVPB Q12H [facility] Rx#: [id number] Oral 425 Other: # Voids 3 Weight 80.286 kg Results CBC & Chem 7: 09/28/22 07:00 09/28/22 07:00 Labs: Abnormal Lab Results - Last 24 Hours (Table) 09/27/22 09/27/22 09/27/22 Range/Units 12:18 12:18 17:10 WBC 0.5 L* (3.8-10.6) k/uL RBC (3.80-5.40) m/uL Hgb (11.4-16.0) gm/dL Hct (34.0-46.0) % RDW (11.5-15.5) % Plt Count 58 L D (150-450) k/uL Potassium (3.5-5.1) mmol/L BUN (7-17) mg/dL Creatinine (0.52-1.04) mg/dL POC Glucose (mg/dL) 117 H (70-110) mg/dL Calcium (8.4-10.2) mg/dL Magnesium (1.6-2.3) mg/dL Urine Protein Trace H (Negative) 09/27/22 09/28/22 09/28/22 Range/Units 20:50 07:00 07:00 WBC 1.2 L* (3.8-10.6) k/uL RBC 2.69 L (3.80-5.40) m/uL Hgb 8.4 L (11.4-16.0) gm/dL Hct 24.8 L (34.0-46.0) % RDW 19.0 H (11.5-15.5) % Plt Count 48 L (150-450) k/uL Potassium 3.2 L (3.5-5.1) mmol/L BUN 6 L (7-17) mg/dL Creatinine 0.49 L (0.52-1.04) mg/dL POC Glucose (mg/dL) 198 H (70-110) mg/dL Calcium 6.8 L (8.4-10.2) mg/dL Magnesium 1.3 L (1.6-2.3) mg/dL Urine Protein (Negative) 09/28/22 09/28/22 Range/Units 08:00 11:33 WBC (3.8-10.6) k/uL RBC (3.80-5.40) m/uL Hgb (11.4-16.0) gm/dL Hct (34.0-46.0) % RDW (11.5-15.5) % Plt Count (150-450) k/uL Potassium (3.5-5.1) mmol/L BUN (7-17) mg/dL Creatinine (0.52-1.04) mg/dL POC Glucose (mg/dL) 114 H 213 H (70-110) mg/dL Calcium (8.4-10.2) mg/dL Magnesium (1.6-2.3) mg/dL Urine Protein (Negative) Assessment and Plan Plan: 1-Patient presented to hospital with febrile neutropenia in this patient with history of lymphoma and chemotherapy last chemo on 09/18/2022 patient did have a low-grade fever White count is low at 0.5 initial work-up including a UA chest x-ray is negative Mediport site looks clean abdominal soft on clinical examination, we will need to cover for for the gram-positive as well as gram- negative while waiting for the culture to finalize 2-vancomycin pharmacy to dose with a target trough of 15 while watching kidney function and Vanco trough closely. However and cefepime while waiting for the culture to finalize 3-advised to keep the patient on hospital while waiting for the culture to finalize discussed with the primary team We will follow on clinical condition and cultures to further adjust medication if needed Thank you for this consultation we will follow the patient along with you Time with Patient: Greater than 30
[2022-09-28 20:54] LABS: Glucose,Whole Blood 162 mg/dL (70-110)
[2022-09-28] MEDS: CEFEPIME 2 GM in SODIUM CHLORIDE 0.9% 100 ML IVPB SCH (21:12)
[2022-09-29] MEDS: MAGNESIUM SULFATE-D5W PMX 1 GM in DEXTROSE/WATER 1 100ML.BAG IVPB SCH ×2 (00:19→01:22)
[2022-09-29] MEDS: VANCOMYCIN 1,500 MG in SODIUM CHLORIDE 0.9% 500 ML 500 ML IVPB SCH (02:43)
[2022-09-29] MEDS: SODIUM CHLORIDE 0.9% 1,000 ML IV SCH (05:49)
[2022-09-29] MEDS: CEFEPIME 2 GM in SODIUM CHLORIDE 0.9% 100 ML IVPB SCH ×2 (05:49→13:24)
[2022-09-29 06:49] LABS: Anisocytosis Slight; Basophils % (A) 0 %; Eosinophils % (A) 1 %; HCT 24.7 % (34.0-46.0); HGB 8.2 gm/dL (11.4-16.0); Lymphocytes # (A) 0.2 k/uL (1.0-4.8); Lymphocytes % (A) 6 %; MCH 30.5 pg (25.0-35.0); MCV 92.2 fL (80.0-100.0); Macrocytosis Slight; Mean Platelet Volume 8.6; Monocytes # (A) 0.1 k/uL (0-1.0); Monocytes % (A) 4 %; Neutrophils # (A) 2.6 k/uL (1.3-7.7); Neutrophils % (A) 87 %; RBC 2.68 m/uL (3.80-5.40); RDW 19.6 % (11.5-15.5)
[2022-09-29 07:04] LABS: Platelet Count 47 k/uL (150-450)
[2022-09-29 07:07] LABS: African American GFR (CKD) >90 (>60 ml/min/1.73 sqM); Anion Gap 6 mmol/L; Blood Urea Nitrogen 2 mg/dL (7-17); Calcium 7.3 mg/dL (8.4-10.2); Carbon Dioxide 27 mmol/L (22-30); Chloride 105 mmol/L (98-107); Glucose 60 mg/dL (74-99); Magnesium 2.3 mg/dL (1.6-2.3); Non-African American GFR(CKD) >90 (>60 ml/min/1.73 sqM); Potassium 4.2 mmol/L (3.5-5.1); Sodium 138 mmol/L (137-145)
[2022-09-29 07:44] LABS: Glucose,Whole Blood 67 mg/dL (70-110)
[2022-09-29 08:09] LABS: Glucose,Whole Blood 84 mg/dL (70-110)
[2022-09-29] MEDS: INSULIN DETEMIR (LEVEMIR) 100 UNIT/ML SYR SQ SCH (08:10)
[2022-09-29] MEDS: ISOSORBIDE MONONITRATE ER 30 MG TAB.ER.24H PO SCH (09:09)
[2022-09-29] MEDS: HEPARIN SODIUM,PORCINE/PF 5,000 UNIT/0.5 ML SYRINGE SQ SCH (09:10)
[2022-09-29] MEDS: metFORMIN 500 MG TAB PO SCH (09:10)
[2022-09-29] MEDS: carvediloL 12.5 MG TAB PO SCH (09:10)
[2022-09-29] MEDS: FAMOTIDINE 20 MG TAB PO SCH (09:10)
[2022-09-29] MEDS: ATORVASTATIN 40 MG TAB PO SCH (09:10)
[2022-09-29] MEDS: glipiZIDE 5 MG TAB PO SCH (09:10)
[2022-09-29] MEDS: MULTIVITAMINS, THERA 1 EACH TAB PO SCH (09:10)
[2022-09-29] MEDS: ASPIRIN 81 MG PO SCH (09:10)
[2022-09-29] MEDS: VIT A,C & E-LUTEIN-MINERALS 1 EACH TAB PO SCH (09:11)
[2022-09-29] MEDS: OLANZapine 2.5 MG TAB PO SCH (09:12)
[2022-09-29] MEDS: MAG HYDROX/AL HYDROX/SIMETH 30 ML, LIDOCAINE VISCOUS 2% 30 ML, diphenhydrAMINE ELIXIR 7... PO SCH ×4 (09:12)
[2022-09-29 09:32] VITALS: BP 136/72; PULSE 93; RESP 17; TEMP 99.8
[2022-09-29 11:53] LABS: Glucose,Whole Blood 150 mg/dL (70-110)
[2022-09-29] MEDS ORDERED: VANCOMYCIN TROUGH DUE 1 EACH MISC MISCELLANE ONE (13:00)
--- NOTE | 2022-09-29 19:53 | P.PN ---
Subjective Progress Note Date: 09/29/22 Principal diagnosis: Neutropenic fever, non-Hodgkin's lymphoma In f/u today pt reporting improvements in mucositis, only mild oral irritation, no sore throat, she is tolerating oral intake, no fevers for >24 hours, she had 1 loose stool today, no pain, she is ambulatory. Objective - Vital Signs Vital signs: Vital Signs Temp 99.8 F H 09/29/22 07:43 Pulse 93 09/29/22 07:43 Resp 17 09/29/22 07:43 BP 136/72 09/29/22 07:43 Pulse Ox 93 L 09/29/22 07:43 FiO2 Intake & Output 09/28/22 09/29/22 09/29/22 18:59 06:59 18:59 Intake Total 2900 500 Balance 2900 500 Intake: Intake, IV Titration 2900 Amount Magnesium Sulfate-D5w Pmx 100 1 gm In Dextrose/Water 1 100ml.bag @ 100 mls/hr IVPB Q1H [facility] Rx#: [id number] Sodium Chloride 0.9% 1, 1800 000 ml @ 75 mls/hr IV . [id number] [facility] Rx#:[id number] Vancomycin 1,500 mg In 1000 Sodium Chloride 0.9% 500 ml 500 ml @ 167 mls/hr IVPB Q12H [facility] Rx#: [id number] Oral 500 Other: Voiding Method Toilet Toilet # Voids 5 - Constitutional General appearance: Present: cooperative, no acute distress, obese - EENT EENT Comment(s): oral mucosa has no thrush or uncerations Eyes: Present: anicteric sclerae, EOMI ENT: Present: hearing grossly normal, normal oropharynx - Respiratory Details: resp even and unlabored at rest - Cardiovascular Details: skin warm and dry to touch - Gastrointestinal General gastrointestinal: Present: soft - Integumentary Integumentary: Present: normal - Neurologic Neurologic: Present: CNII-XII intact - Musculoskeletal Musculoskeletal: Present: strength equal bilaterally - Psychiatric Psychiatric: Present: A&O x's 3, appropriate affect, intact judgment & insight - Labs CBC & Chem 7: 09/29/22 06:12 09/29/22 06:12 Labs: Abnormal Lab Results - Last 24 Hours (Table) 06/04/23 06/04/23 06/05/23 Range/Units 17:23 20:51 06:12 WBC 3.0 L (3.8-10.6) k/uL RBC 2.68 L (3.80-5.40) m/uL Hgb 8.2 L (11.4-16.0) gm/dL Hct 24.7 L (34.0-46.0) % RDW 19.6 H (11.5-15.5) % Plt Count 47 L (150-450) k/uL Lymphocytes # 0.2 L (1.0-4.8) k/uL BUN (7-17) mg/dL Glucose (74-99) mg/dL POC Glucose (mg/dL) 166 H 162 H (70-110) mg/dL Calcium (8.4-10.2) mg/dL 09/29/22 09/29/22 09/29/22 Range/Units 06:12 07:42 11:51 WBC (3.8-10.6) k/uL RBC (3.80-5.40) m/uL Hgb (11.4-16.0) gm/dL Hct (34.0-46.0) % RDW (11.5-15.5) % Plt Count (150-450) k/uL Lymphocytes # (1.0-4.8) k/uL BUN 2 L (7-17) mg/dL Glucose 60 L (74-99) mg/dL POC Glucose (mg/dL) 67 L 150 H (70-110) mg/dL Calcium 7.3 L (8.4-10.2) mg/dL Microbiology - Last 24 Hours (Table) 09/27/22 12:15 Blood Culture - Preliminary Blood 09/27/22 12:00 Blood Culture - Preliminary Blood Assessment and Plan (1) Neutropenic fever Status: Acute Priority: High Code(s): D70.9 - NEUTROPENIA, UNSPECIFIED; R50.81 - FEVER PRESENTING WITH CONDITIONS CLASSIFIED ELSEWHERE SNOMED Code(s): 232338799 (2) Pancytopenia due to antineoplastic chemotherapy Status: Acute Priority: High Code(s): D61.810 - ANTINEOPLASTIC CHEMOTHERAPY INDUCED PANCYTOPENIA; T45.1X5A - ADVERSE EFFECT OF ANTINEOPLASTIC AND IMMUNOSUP DRUGS, INIT SNOMED Code(s): 280211586909810 (3) NHL (non-Hodgkin's lymphoma) Status: Acute Priority: Medium Code(s): C85.90 - NON-HODGKIN LYMPHOMA, UNSPECIFIED, UNSPECIFIED SITE SNOMED Code(s): 414104121 Plan: Neutropenic fever -No fever since admit -pt seen by ID, treated with abx -CXR and UA neg, BC neg at 24 hours-48 hours not posted just yet -ANC is normal at 2.6 today Pancytopenia 2/2 chemo -No transfusions were necessary during this admit -counts recovered spontaneously post chemo -pt did receive GCSF-WBC/ANC did recover NHL -s/p 3/6 cycles -pt, overall, doing well on treatment -supraclavicular LAD smaller -Plan for f/u prior to starting next cycle to assess if any dose adjustments are necessary attests: I seen and examined patient, performed H&P, developed impression and plan of care. Discussed with dictator. Agree with documentation, dictated as a scribe
--- NOTE | 2022-09-29 22:41 | P.DS ---
Providers Date of admission: 09/27/22 13:07 Attending physician: Lorena Carballo Consults: 09/27/22 13:28 Consult Physician Routine Consulting Provider: Kelsi Cox Consult Reason/Comments: neutropenic fever Do you want consulting provider notified?: Yes, Notify in am Consult Physician Routine Consulting Provider: Mian Rios Consult Reason/Comments: neutropenic fever Do you want consulting provider notified?: Yes, Notify in am Primary care physician: Erick Vance [place] [facility] Course: Final Diagnosis -Febrile neutropenia: no identifiable source of infection -Pancytopenia patient is currently on chemotherapy for lymphoma -Mucositis -Hypovolemic hyponatremia: Patient was started on IV fluids, sodium is normalized. -Hypokalemia/hypomagnesemia -Coronary artery disease -Type 2 diabetes mellitus -Hyperlipidemia -Hypertension Full Code Discharge Disposition Patient is stable for discharge. Patients fever has improved on oral antibiotics. ID has evaluated the patient and recommending a 5 day course of oral augmentin on discharge. Patient to continue on COOL's solution for the mucositis which is improving. Recommending to monitor for fever. Patient had an episode of hypoglycemia and recommending to decrease insulin to 20 units twice a day of long acting and monitor of blood glucose outpatient. Patient to repeat labs in 2 to 3 days. Has a follow up with hematology scheduled for 10/01 prior to resuming chemotherapy. Recommend to see Dr Vance in the office in 1 to 2 days. Hospital Course 72-year-old pleasant female, post chemotherapy on October 19 for lymphoma came in with complaints of fever up 100.5. Workup did not show any pneumonia patient denied any abdominal pain, diarrhea, nausea, vomiting. Patient, denied any significant cough patient denied any dysuria, urinalysis is essentially within normal limits. Patient is being admitted for febrile neutropenia, with a total white count of around 500 and the neutrophil count unavailable. Infectious disease was consulted patient was started on cefepime and vancomycin. Blood cultures were obtained urine cultures were obtained. Patient does have body aches, influenza and COVID-19 were negative. Oncology was also consulted. Patient is currently being treated for mucositis as well with the oral cools solution which does contain nystatin. Patient has reported improvement in the mouth sores and additionally fever has improved. Blood culture remains negative. Patient was hydrated, given oral potassium and IV magnesium supplementation and electrolytes have normalized with sodium currently of 138, potassium 4.2, magnes ium 2.3, BUN/creatinine of 2/0.53. Oncology recommending DC home if total ANC is greater than 1. Patients white count is now 3000, with a hemoglobin of 8.2 and platelet count of 47. Currently denying any chest pain, no shortness of breath, no nausea, vomiting or diarrhea. Patient is alert x 3 and focal neurological exam is negative. Lungs are clear S1 S2 auscultated abdomen is soft and nontender. No cough, fever improved. Patient will be discharged home with the above mentioned recommendations. Please see medication reconciliation for a list of current medication. Thank you for allowing us to participate in the care of this patient. The impression and plan of care has been dictated by Lorna Ortiz, Nurse Practitioner as directed. Dr. Haris MD I have performed a history and physical examination and medical decision making of this patient, discussed the same with the dictator, and agree with the dictators assessment and plan as written, documented as a scribe. Based on total visit time, I have performed more than 50% of this visit. Patient Condition at Discharge: Stable Plan - Discharge Summary Discharge Rx Participant: Yes New Discharge Prescriptions: New Mag Hydrox/Al Hydrox/Simeth [Maalox] 30 ml PO TID ml OLANZapine [ZyPREXA] 2.5 mg PO DAILY tab Amoxic-Pot Clav 875-125Mg [Augmentin 875-125] 1 tab PO Q12HR 5 Days #10 tab Continue Ergocalciferol [Vitamin D2 (DRISDOL)] 50,000 unit PO Q14D Aspirin EC [Ecotrin Low Dose] 81 mg PO DAILY Isosorbide Mononitrate ER [Imdur] 30 mg PO DAILY Iron 28mg 28 mg PO DAILY carvediloL [Coreg] 12.5 mg PO BID Atorvastatin [Lipitor] 40 mg PO DAILY hydrALAZINE HCL [Apresoline] 50 mg PO BID #60 tab Pantoprazole Sodium [Protonix] 40 mg PO DAILY Retinovite Supplement 1 tab PO DAILY Multivitamins, Thera [Multivitamin (formulary)] 1 tab PO DAILY Cool's Solution 5 ml PO QID PRN PRN Reason: sores/pain in mouth Ondansetron [Zofran] 4 - 8 mg PO Q6H PRN PRN Reason: Nausea glipiZIDE/METFORMIN HCL [glipiZIDE/METFORMIN HCL 5-500 mg] 1.5 tab PO BID Semaglutide [Ozempic] 1 mg SQ FR Lidocaine-Prilocaine Cream [Emla Cream 2.5%/2.5%] 1 applic TOPICAL ONCE PRN PRN Reason: port access Changed Insulin Detemir [Levemir Flextouch] 20 unit SQ BID #0 Discontinued Insulin Detemir [Levemir Flextouch Pen] 45 units SQ [id number] Discharge Medication List Ergocalciferol [Vitamin D2 (DRISDOL)] 50,000 unit PO Q14D 06/16/14 [History] Aspirin EC [Ecotrin Low Dose] 81 mg PO DAILY 01/15/19 [History] Atorvastatin [Lipitor] 40 mg PO DAILY 01/15/19 [History] Iron 28mg 28 mg PO DAILY 01/15/19 [History] Isosorbide Mononitrate ER [Imdur] 30 mg PO DAILY 01/15/19 [History] carvediloL [Coreg] 12.5 mg PO BID 01/15/19 [History] hydrALAZINE HCL [Apresoline] 50 mg PO BID #60 tab 01/19/19 [Rx] Pantoprazole Sodium [Protonix] 40 mg PO DAILY 05/17/20 [History] Retinovite Supplement 1 tab PO DAILY 05/17/20 [History] Semaglutide [Ozempic] 1 mg SQ FR 06/11/22 [History] glipiZIDE/METFORMIN HCL [glipiZIDE/METFORMIN HCL 5-500 mg] 1.5 tab PO BID 06/11/22 [History] Lidocaine-Prilocaine Cream [Emla Cream 2.5%/2.5%] 1 applic TOPICAL ONCE PRN 08/08/22 [History] Cool's Solution 5 ml PO QID PRN 09/27/22 [History] Multivitamins, Thera [Multivitamin (formulary)] 1 tab PO DAILY 09/27/22 [History] Ondansetron [Zofran] 4 - 8 mg PO Q6H PRN 09/27/22 [History] Amoxic-Pot Clav 875-125Mg [Augmentin 875-125] 1 tab PO Q12HR 5 Days #10 tab 09/29/22 [Rx] Insulin Detemir [Levemir Flextouch] 20 unit SQ BID #0 09/29/22 [Rx] Mag Hydrox/Al Hydrox/Simeth [Maalox] 30 ml PO TID ml 09/29/22 [Rx] OLANZapine [ZyPREXA] 2.5 mg PO DAILY tab 09/29/22 [Rx] Follow up Appointment(s)/Referral(s): Erick Vance MD [Primary Care Provider] - 10/02/22 10:15 am Mian Rios MD [STAFF PHYSICIAN] - 10/14/22 2:15 pm Kelsi Cox MD [STAFF PHYSICIAN] - 10/01/22 8:30 am Ambulatory/Diagnostic Orders: Complete Blood Count w/diff [LAB.AMB] Time Frame: 3 Days, Location: None Selected Patient Instructions/Handouts: Amoxicillin/Clavulanate Potassium (By mouth), Neutropenia (DC) Activity/Diet/Wound Care/Special Instructions: Recommend to continue the oral COOLS solution for the mucostis Recommend diet as tolerated and increase oral intake, zofran as needed F/u with Maximiliano Granado as scheduled and repeat CBC in 3 days. F/u With Dr. Vance in 1 to 2 days as well. Recommend to decrease levemir to 20 units twice a day and monitor blood glucose closely. Discharge Disposition: HOME SELF-CARE
== END 2022-09-29 14:14 | disposition home or self-care (01) | DRG 809 ==
LOC: EC 10:58 → 5NMEDONC 13:07
PROVIDERS: ADMIT Internal Medicine; ATTEND Internal Medicine
DX: D70.1 Agranulocytosis secondary to cancer chemotherapy (principal); C83.30 Diffuse large B-cell lymphoma, unspecified site; E87.1 Hypo-osmolality and hyponatremia; D61.810 Antineoplastic chemotherapy induced pancytopenia; R50.81 Fever presenting with conditions classified elsewhere; E78.5 Hyperlipidemia, unspecified; E86.0 Dehydration; I10 Essential (primary) hypertension; E83.42 Hypomagnesemia; T45.1X5A Adverse effect of antineoplastic and immunosuppressive drugs, initial encounter; E11.9 Type 2 diabetes mellitus without complications; E86.1 Hypovolemia; E87.6 Hypokalemia; I25.10 Atherosclerotic heart disease of native coronary artery without angina pectoris; K12.31 Oral mucositis (ulcerative) due to antineoplastic therapy; Z79.4 Long term (current) use of insulin; Z79.84 Long term (current) use of oral hypoglycemic drugs; Z79.899 Other long term (current) drug therapy; Z79.82 Long term (current) use of aspirin; Z96.652 Presence of left artificial knee joint; Z20.822 Contact with and (suspected) exposure to COVID-19; Z91.040 Latex allergy status; Z82.49 Family history of ischemic heart disease and other diseases of the circulatory system; Z85.828 Personal history of other malignant neoplasm of skin
CPT/HCPCS: 36415; 71046; 80048; 80053; 81003; 83605; 83735; 85025; 85027; 87040; 87636; 96365; 99285

== ENCOUNTER 2022-10-21 08:49 | Inpatient (IN) | payer MEDICARE ==
[2022-10-21] MEDS ORDERED: LIDOCAINE-PRILOCAINE 2.5-2.5% CREAM 5 GM TUBE TOPICAL STA (09:20)
[2022-10-21] MEDS ORDERED: ACETAMINOPHEN TAB 500 MG TAB PO STA (09:30)
--- NOTE | 2022-10-21 09:41 | ED ---
Weakness HPI - General Chief complaint: Weakness Stated complaint: cant walk, fever Time Seen by Provider: 10/21/22 09:18 Source: patient, RN notes reviewed Mode of arrival: ambulatory Limitations: no limitations - History of Present Illness Initial comments: 77-year-old female presents emergency Department with chief complaint of weakness. Patient states that she became very weak last night to the point where she could not get a chair go to bed. Patient prior to that and she is unable to get out of bed this morning. She states that she has benign antibiotic for last few days from her PCP because of possible infection. She is unsure what they were treating she has meant that she is on chemotherapy for lymphoma. Patient does admit to mild congestion, cough no abdominal pain denies any nausea and diarrhea constipation or recent Tylenol Motrin. No sick contacts. - Related Data Home Medications Medication Instructions Recorded Confirmed Ergocalciferol [Vitamin D2 50,000 unit PO Q14D 06/16/14 10/21/22 (DRISDOL)] Aspirin EC [Ecotrin Low Dose] 81 mg PO DAILY 01/15/19 10/21/22 Atorvastatin [Lipitor] 40 mg PO HS 01/15/19 10/21/22 Iron 28mg 28 mg PO DAILY 01/15/19 10/21/22 Isosorbide Mononitrate ER [Imdur] 30 mg PO DAILY 01/15/19 10/21/22 carvediloL [Coreg] 12.5 mg PO BID 01/15/19 10/21/22 Pantoprazole Sodium [Protonix] 40 mg PO DAILY 05/17/20 10/21/22 Retinovite Supplement 1 tab PO DAILY 05/17/20 10/21/22 Semaglutide [Ozempic] 1 mg SQ FR 06/11/22 10/21/22 glipiZIDE/METFORMIN HCL 1.5 tab PO BID 06/11/22 10/21/22 [glipiZIDE/METFORMIN HCL 5-500 mg] Lidocaine-Prilocaine Cream [Emla 1 applic TOPICAL ONCE PRN 08/08/22 10/21/22 Cream 2.5%/2.5%] Multivitamins, Thera [Multivitamin 1 tab PO DAILY 09/27/22 10/21/22 (formulary)] Ondansetron [Zofran] 4 mg PO Q6H PRN 09/27/22 10/21/22 Docusate [Colace] 100 mg PO DAILY PRN 10/21/22 10/21/22 Insulin Detemir [Levemir Flextouch] 40 unit SQ HS 10/21/22 10/21/22 Insulin Detemir [Levemir Flextouch] 45 unit SQ DAILY 10/21/22 10/21/22 Levofloxacin [Levaquin] 500 mg PO DAILY 10/21/22 10/21/22 Loperamide HCl [Imodium A-D] 2 mg PO BID PRN 10/21/22 10/21/22 OLANZapine [ZyPREXA] 2.5 mg PO DIRECTED 10/21/22 10/21/22 Vits A and D/White Pet/Lanolin [A 1 applic TOPICAL DAILY PRN 10/21/22 10/21/22 and D Ointment] predniSONE 100 mg PO DIRECTED 10/21/22 10/21/22 Previous Rx's Medication Instructions Recorded hydrALAZINE HCL [Apresoline] 50 mg PO BID #60 tab 01/19/19 Allergies Allergy/AdvReac Type Severity Reaction Status Date / Time adhesive tape Allergy redness Verified 10/21/22 12:21 latex Allergy skin Verified 10/21/22 12:21 redness tegaderm AdvReac redness/bli Uncoded 10/21/22 09:10 ster Review of Systems ROS Statement: Those systems with pertinent positive or pertinent negative responses have been documented in the HPI. ROS Other: All systems not noted in ROS Statement are negative. Past Medical History Past Medical History: Coronary Artery Disease (CAD), Cancer, Diabetes Mellitus, Hyperlipidemia, Hypertension Additional Past Medical History / Comment(s): SHORTNESS OF BREATH AND FATIGUE, SKIN CA HX History of Any Multi-Drug Resistant Organisms: None Reported Past Surgical History: Section, Cholecystectomy, Heart Catheterization With Stent, Hernia Repair, Joint Replacement, Tonsillectomy Additional Past Surgical History / Comment(s): LEFT KNEE REPLACEMENT, UMBILICAL HERNIA REPAIR, cataract surgery Past Anesthesia/Blood Transfusion Reactions: No Reported Reaction Date of Last Stent Placement:: 2014 Past Psychological History: No Psychological Hx Reported Smoking Status: Never smoker Past Alcohol Use History: None Reported Past Drug Use History: None Reported - Past Family History Father Family Medical History: Myocardial Infarction ([place]) Additional Family Medical History / Comment(s): AT AGE 42 Brother(s) Family Medical History: Cancer Additional Family Medical History / Comment(s): liver and prostate cancer General Exam Limitations: no limitations General appearance: alert, in no apparent distress Head exam: Present: atraumatic, normocephalic, normal inspection Eye exam: Present: normal appearance, PERRL, EOMI. Absent: scleral icterus, conjunctival injection, periorbital swelling ENT exam: Present: normal exam, normal oropharynx, mucous membranes moist Neck exam: Present: normal inspection, full ROM. Absent: tenderness, meningismus, lymphadenopathy Respiratory exam: Present: normal lung sounds bilaterally. Absent: respiratory distress, wheezes, rales, rhonchi, stridor Cardiovascular Exam: Present: normal rhythm, tachycardia, normal heart sounds. Absent: systolic murmur, diastolic murmur, rubs, gallop, clicks GI/Abdominal exam: Present: soft, normal bowel sounds. Absent: distended, tenderness, guarding, rebound, rigid Neurological exam: Present: alert, oriented X3 Course Vital Signs 10/21/22 10/21/22 10/21/22 09:08 10:54 12:27 Temperature 101 F H Pulse Rate 111 H 98 87 Respiratory 18 18 16 Rate Blood Pressure 110/67 101/61 112/73 O2 Sat by Pulse 90 L 99 98 Oximetry 10/21/22 13:15 Temperature 97.9 F Pulse Rate 90 Respiratory 18 Rate Blood Pressure 128/66 O2 Sat by Pulse 98 Oximetry EKG Findings - EKG Comments: EKG Findings:: EKG 0.09:34 sinus tachycardia rate of 109 MD 128 QRS 137 QT/QTC 360/424 EKG started prior EKG - - EKG Results: EKG: interpreted by ERMD Medical Decision Making - Medical Decision Making Was pt. sent in by a medical professional or institution (, PA, DRAW FURNACE TENDER, urgent care, hospital, or fdc...) When possible be specific @ -No Did you speak to anyone other than the patient for history (EMS, parent, family, police, friend...)? What history was obtained from this source @ - in the room providing this a past medical history. Did you review nursing and triage notes (agree or disagree)? Why? @ -I reviewed and agree with nursing and triage notes Were old charts reviewed (outside hosp., previous admission, EMS record, old EKG, old radiological studies, urgent care reports/EKG's, fdc records)? Report findings @ -Reviewed prior laboratory studies, urinalysis Differential Diagnosis (chest pain, altered mental status, abdominal pain women, abdominal pain men, vaginal bleeding, weakness, fever, dyspnea, syncope, headache, dizziness, GI bleed, back pain, seizure, CVA, palpatations, mental health, musculoskeletal)? @ -Fever, sepsis, bacteremia, URI, viral infection, pneumonia, this a n onocclusive EKG interpreted by me (3pts min.). @ -As above X-rays interpreted by me (1pt min.). @ -Chest x-ray shows no acute process done CT interpreted by me (1pt min.). @ -None done U/S interpreted by me (1pt. min.). @ -None done What testing was considered but not performed or refused? (CT, X-rays, U/S, labs)? Why? @ -None What meds were considered but not given or refused? Why? @ -None Did you discuss the management of the patient with other professionals (professionals i.e. , PA, DRAW FURNACE TENDER, lab, RT, psych nurse, social work therapist, software applications engineer, teacher, dog license officer supervisor, pillowcase sewer)? Give summary @ - sheet for admission secondary to fever, hypomagnesemia, UTI fell outpatient treatment on chemotherapy for lymphoma. Was smoking cessation discussed for >3mins.? @ -No Was critical care preformed (if so, how long)? @ 35 mins Were there social determinants of health that impacted care today? How? (Homelessness, low income, unemployed, alcoholism, drug addiction, transportation, low edu. Level, literacy, decrease access to med. care, long-term, rehab)? @ -No Was there de-escalation of care discussed even if they declined (Discuss DNR or withdrawal of care, Hospice)? DNR status @ -No What co-morbidities impacted this encounter? (DM, HTN, Smoking, COPD, CAD, Canc er, CVA, ARF, Chemo, Hep., AIDS, mental health diagnosis, sleep apnea, morbid obesity)? @ -None Was patient admitted / discharged? Hospital course, mention meds given and route, prescriptions, significant lab abnormalities, going to OR and other pertinent info. @ -Admitted patient presented for increased weakness, fever. Patient does have noted anemia, hypomagnesemia patient is febrile in concerned has patient's been on current treatment for UTI there is concerned that she may be bacteremic. I discussed the case with JULISSA lind requested blood culture be taken from port.. Patient was started on Rocephin based on prior urinalysis, urine culture patient will consult to infectious disease, oncology, cardiology as patient is elevated troponin though patient has no current chest pain. Undiagnosed new problem with uncertain prognosis? @ -No Drug Therapy requiring intensive monitoring for toxicity (Heparin, Nitro, Insulin, Cardizem)? @ -No Were any procedures done? @ -No Diagnosis/symptom? @ -Fever, hypomagnesemia, UTI, elevated troponin Acute, or Chronic, or Acute on Chronic? @ -Acute Uncomplicated (without systemic symptoms) or Complicated (systemic symptoms)? @ -Complicated Side effects of treatment? @ -No Exacerbation, Progression, or Severe Exacerbation? @ -No Poses a threat to life or bodily function? How? (Chest pain, [place], [place], pneumonia, PE, COPD, DKA, ARF, appy, cholecystitis, CVA, Diverticulitis, Homicidal, Suicidal, threat to staff... and all critical care pts) @ -Yes patient may be bacteremic, patient is elevated troponin concerning for cardiac injury - Lab Data Result diagrams: 10/21/22 09:38 10/21/22 09:38 Lab Results 10/21/22 10/21/22 10/21/22 Range/Units 09:38 09:38 09:38 WBC 4.8 (3.8-10.6) k/uL RBC 2.29 L (3.80-5.40) m/uL Hgb 7.3 L (11.4-16.0) gm/dL Hct 21.3 L (34.0-46.0) % MCV 93.0 (80.0-100.0) fL MCH 31.9 (25.0-35.0) pg MCHC 34.3 (31.0-37.0) g/dL RDW 20.7 H (11.5-15.5) % Plt Count 73 L D (150-450) k/uL MPV 8.8 Neutrophils % 93 % Lymphocytes % 2 % Monocytes % 3 % Eosinophils % 0 % Basophils % 0 % Neutrophils # 4.5 (1.3-7.7) k/uL Lymphocytes # 0.1 L (1.0-4.8) k/uL Monocytes # 0.2 (0-1.0) k/uL Eosinophils # 0.0 (0-0.7) k/uL Basophils # 0.0 (0-0.2) k/uL Poikilocytosis Slight Anisocytosis Moderate Macrocytosis Slight PT 11.6 (9.0-12.0) sec INR 1.1 (<1.2) APTT 25.1 (22.0-30.0) sec Sodium (137-145) mmol/L Potassium (3.5-5.1) mmol/L Chloride (98-107) mmol/L Carbon Dioxide (22-30) mmol/L Anion Gap mmol/L BUN (7-17) mg/dL Creatinine (0.52-1.04) mg/dL Est GFR (CKD-EPI)AfAm (>60 ml/min/1.73 sqM) Est GFR (CKD-EPI)NonAf (>60 ml/min/1.73 sqM) Glucose (74-99) mg/dL Plasma Lactic Acid Sagar (0.7-2.0) mmol/L Calcium (8.4-10.2) mg/dL Magnesium (1.6-2.3) mg/dL Total Bilirubin (0.2-1.3) mg/dL AST (14-36) U/L ALT (4-34) U/L Alkaline Phosphatase (38-126) U/L Troponin I (0.000-0.034) ng/mL Total Protein (6.3-8.2) g/dL Albumin (3.5-5.0) g/dL Urine Color Yellow Urine Appearance Cloudy H (Clear) Urine pH 5.5 (5.0-8.0) Ur Specific [place] 1.023 (1.001-1.035) Urine Protein Trace H (Negative) Urine Glucose (UA) Negative (Negative) Urine Ketones Negative (Negative) Urine Blood Negative (Negative) Urine Nitrite Negative (Negative) Urine Bilirubin Negative (Negative) Urine Urobilinogen <2.0 (<2.0) mg/dL Ur Leukocyte Esterase Trace H (Negative) Urine WBC 9 H (0-5) /hpf Ur Squamous Epith Cells 1 (0-4) /hpf Urine Bacteria Rare H (None) /hpf Urine Mucus Many H (None) /hpf Influenza Type A (PCR) (Not Detectd) Influenza Type B (PCR) (Not Detectd) RSV (PCR) (Not Detectd) SARS-CoV-2 (PCR) (Not Detectd) 10/21/22 10/21/22 10/21/22 Range/Units 09:38 09:38 09:38 WBC (3.8-10.6) k/uL RBC (3.80-5.40) m/uL Hgb (11.4-16.0) gm/dL Hct (34.0-46.0) % MCV (80.0-100.0) fL MCH (25.0-35.0) pg MCHC (31.0-37.0) g/dL RDW (11.5-15.5) % Plt Count (150-450) k/uL MPV Neutrophils % % Lymphocytes % % Monocytes % % Eosinophils % % Basophils % % Neutrophils # (1.3-7.7) k/uL Lymphocytes # (1.0-4.8) k/uL Monocytes # (0-1.0) k/uL Eosinophils # (0-0.7) k/uL Basophils # (0-0.2) k/uL Poikilocytosis Anisocytosis Macrocytosis PT (9.0-12.0) sec INR (<1.2) APTT (22.0-30.0) sec Sodium 131 L (137-145) mmol/L Potassium 3.7 (3.5-5.1) mmol/L Chloride 98 (98-107) mmol/L Carbon Dioxide 29 (22-30) mmol/L Anion Gap 4 mmol/L BUN 13 (7-17) mg/dL Creatinine 0.56 (0.52-1.04) mg/dL Est GFR (CKD-EPI)AfAm >90 (>60 ml/min/1.73 sqM) Est GFR (CKD-EPI)NonAf >90 (>60 ml/min/1.73 sqM) Glucose 148 H (74-99) mg/dL Plasma Lactic Acid Sagar 1.3 (0.7-2.0) mmol/L Calcium 7.5 L (8.4-10.2) mg/dL Magnesium 1.1 L (1.6-2.3) mg/dL Total Bilirubin 1.1 (0.2-1.3) mg/dL AST 19 (14-36) U/L ALT 28 (4-34) U/L Alkaline Phosphatase 45 (38-126) U/L Troponin I 0.500 H* (0.000-0.034) ng/mL Total Protein 5.3 L (6.3-8.2) g/dL Albumin 3.0 L (3.5-5.0) g/dL Urine Color Urine Appearance (Clear) Urine pH (5.0-8.0) Ur Specific [place] (1.001-1.035) Urine Protein (Negative) Urine Glucose (UA) (Negative) Urine Ketones (Negative) Urine Blood (Negative) Urine Nitrite (Negative) Urine Bilirubin (Negative) Urine Urobilinogen (<2.0) mg/dL Ur Leukocyte Esterase (Negative) Urine WBC (0-5) /hpf Ur Squamous Epith Cells (0-4) /hpf Urine Bacteria (None) /hpf Urine Mucus (None) /hpf Influenza Type A (PCR) (Not Detectd) Influenza Type B (PCR) (Not Detectd) RSV (PCR) (Not Detectd) SARS-CoV-2 (PCR) (Not Detectd) 10/21/22 Range/Units 09:38 WBC (3.8-10.6) k/uL RBC (3.80-5.40) m/uL Hgb (11.4-16.0) gm/dL Hct (34.0-46.0) % MCV (80.0-100.0) fL MCH (25.0-35.0) pg MCHC (31.0-37.0) g/dL RDW (11.5-15.5) % Plt Count (150-450) k/uL MPV Neutrophils % % Lymphocytes % % Monocytes % % Eosinophils % % Basophils % % Neutrophils # (1.3-7.7) k/uL Lymphocytes # (1.0-4.8) k/uL Monocytes # (0-1.0) k/uL Eosinophils # (0-0.7) k/uL Basophils # (0-0.2) k/uL Poikilocytosis Anisocytosis Macrocytosis PT (9.0-12.0) sec INR (<1.2) APTT (22.0-30.0) sec Sodium (137-145) mmol/L Potassium (3.5-5.1) mmol/L Chloride (98-107) mmol/L Carbon Dioxide (22-30) mmol/L Anion Gap mmol/L BUN (7-17) mg/dL Creatinine (0.52-1.04) mg/dL Est GFR (CKD-EPI)AfAm (>60 ml/min/1.73 sqM) Est GFR (CKD-EPI)NonAf (>60 ml/min/1.73 sqM) Glucose (74-99) mg/dL Plasma Lactic Acid Sagar (0.7-2.0) mmol/L Calcium (8.4-10.2) mg/dL Magnesium (1.6-2.3) mg/dL Total Bilirubin (0.2-1.3) mg/dL AST (14-36) U/L ALT (4-34) U/L Alkaline Phosphatase (38-126) U/L Troponin I (0.000-0.034) ng/mL Total Protein (6.3-8.2) g/dL Albumin (3.5-5.0) g/dL Urine Color Urine Appearance (Clear) Urine pH (5.0-8.0) Ur Specific [place] (1.001-1.035) Urine Protein (Negative) Urine Glucose (UA) (Negative) Urine Ketones (Negative) Urine Blood (Negative) Urine Nitrite (Negative) Urine Bilirubin (Negative) Urine Urobilinogen (<2.0) mg/dL Ur Leukocyte Esterase (Negative) Urine WBC (0-5) /hpf Ur Squamous Epith Cells (0-4) /hpf Urine Bacteria (None) /hpf Urine Mucus (None) /hpf Influenza Type A (PCR) Not Detected (Not Detectd) Influenza Type B (PCR) Not Detected (Not Detectd) RSV (PCR) Not Detected (Not Detectd) SARS-CoV-2 (PCR) Not Detected (Not Detectd) Critical Care Time Critical Care Time: Yes Total Critical Care Time: 35 Disposition Clinical Impression: Pancytopenia due to antineoplastic chemotherapy, Fever, UTI (urinary tract infection), Hypomagnesemia, Elevated troponin Disposition: ADMITTED IP TO THIS HOSP Condition: Fair Referrals: Erick Vance MD [Primary Care Provider] - 1-2 days
[2022-10-21 10:54] LABS: Anisocytosis Moderate; Basophils % (A) 0 %; Eosinophils % (A) 0 %; HCT 21.3 % (34.0-46.0); HGB 7.3 gm/dL (11.4-16.0); Lymphocytes # (A) 0.1 k/uL (1.0-4.8); Lymphocytes % (A) 2 %; MCH 31.9 pg (25.0-35.0); MCHC 34.3 g/dL (31.0-37.0); Macrocytosis Slight; Mean Platelet Volume 8.8; Monocytes # (A) 0.2 k/uL (0-1.0); Monocytes % (A) 3 %; Neutrophils # (A) 4.5 k/uL (1.3-7.7); Neutrophils % (A) 93 %; Poikilocytosis Slight; RBC 2.29 m/uL (3.80-5.40); RDW 20.7 % (11.5-15.5); WBC 4.8 k/uL (3.8-10.6)
[2022-10-21 11:00] LABS: INR 1.1 (<1.2); Partial Thromboplastin Time 25.1 sec (22.0-30.0); Prothrombin Time 11.6 sec (9.0-12.0)
--- NOTE | 2022-10-21 11:06 | XR ---
EXAMINATION TYPE: XR chest 2V DATE OF EXAM: 10/21/2022 10:54 AM COMPARISON: Chest radiographs from 09/27/2022 TECHNIQUE: XR chest 2V Frontal and lateral views of the chest. CLINICAL INDICATION:Female, 77 years old with history of Weakness; FINDINGS: Lungs/Pleura: There is no evidence of pleural mild effusion, focal consolidation, or pneumothorax. Pulmonary vascularity: Pulmonary vascular congestion. Heart/mediastinum: Cardiomediastinal silhouette is unremarkable. Musculoskeletal: No acute osseous pathology. Right chest wall [id number] tip terminating near the brachiocephalic /superior vena cava confluenc e. IMPRESSION: Cardiomegaly and mild pulmonary vascular congestion. Correlate with BNP for congestive heart failure.
[2022-10-21 11:09] LABS: ALT 28 U/L (4-34); AST 19 U/L (14-36); African American GFR (CKD) >90 (>60 ml/min/1.73 sqM); Alkaline Phosphatase 45 U/L (38-126); Anion Gap 4 mmol/L; Blood Urea Nitrogen 13 mg/dL (7-17); Calcium 7.5 mg/dL (8.4-10.2); Carbon Dioxide 29 mmol/L (22-30); Chloride 98 mmol/L (98-107); Glucose 148 mg/dL (74-99); Magnesium 1.1 mg/dL (1.6-2.3); Non-African American GFR(CKD) >90 (>60 ml/min/1.73 sqM); Platelet Count 73 k/uL (150-450); Potassium 3.7 mmol/L (3.5-5.1); Sodium 131 mmol/L (137-145); Total Bilirubin 1.1 mg/dL (0.2-1.3); Total Protein 5.3 g/dL (6.3-8.2)
[2022-10-21] MEDS: MAGNESIUM SULFATE-D5W PMX 1 GM in DEXTROSE/WATER 1 100ML.BAG IVPB SCH ×3 (13:06→17:20)
[2022-10-21 13:30] LABS: Appearance,Urine Cloudy (Clear); Bacteria,Urine Rare /hpf; Bilirubin,Urine Negative (Negative); Blood,Urine Negative (Negative); Color,Urine Yellow; Glucose,Urine (UA) Negative (Negative); Ketones,Urine Negative (Negative); Leukocyte Esterase,Urine Trace (Negative); Mucus,Urine Many /hpf; Nitrite,Urine Negative (Negative); PH, Urine 5.5 (5.0-8.0); Protein,Urine Trace (Negative); Specific Gravity,Urine 1.023 (1.001-1.035); Squamous Epithelial Cell,Urine 1 /hpf (0-4); Urobilinogen,Urine <2.0 mg/dL (<2.0); WBC,Urine 9 /hpf (0-5)
[2022-10-21] MEDS ORDERED: ACETAMINOPHEN TAB 325 MG TAB PO PRN (13:54)
[2022-10-21] MEDS ORDERED: NALOXONE 0.4 MG/ML 1 ML VIAL IV PRN (13:54)
[2022-10-21] MEDS: SODIUM CHLORIDE 0.9% 1,000 ML IV SCH (14:56)
[2022-10-21 16:54] LABS: Glucose,Whole Blood 168 mg/dL (70-110)
[2022-10-21] MEDS ORDERED: ONDANSETRON 4 MG TAB PO PRN (18:44)
[2022-10-21] MEDS ORDERED: DOCUSATE 100 MG CAP PO PRN (18:44)
[2022-10-21] MEDS ORDERED: LOPERAMIDE 2 MG CAP PO PRN (18:44)
--- NOTE | 2022-10-21 18:48 | P.HPIM ---
History of Present Illness This is a pleasant 77 years old female with past medical history of lymphoma getting chemotherapy every 3 weeks,. Her oncologist is Dr. Cox and her PCP is Dr. Garces Other medical problems include Coronary Artery Disease status post stent, Diabetes Mellitus, Hyperlipidemia, Hypertension She presents with generalized weakness and fever at home she was checked by her was 102.2 so she decided to come to the hospital. However patient denies specific symptoms no chest pain dyspnea coughing, no headache dizziness weakness numbness She denies dysuria urgency coughing. No abdominal pain vomiting and diarrhea. No smoking alcohol or illicit drugs. Vitals stable and fever in the emergency room was 101. WBC is normal 4.8, hemoglobin 7.3, platelet count 73, BMP INR and liver enzymes were unremarkable. Troponin is 0.5 and 0.5. Urine analysis is unremarkable for infection it has only go side distal radius: Trace and urine WBC: 9 h 3 viruses undetected including influenza, RSV, coronavirus Chest x-ray showing cardiomegaly and mild pulmonary vascular congestion Past Medical History Past Medical History: Coronary Artery Disease (CAD), Cancer, Diabetes Mellitus, Hyperlipidemia, Hypertension Additional Past Medical History / Comment(s): SHORTNESS OF BREATH AND FATIGUE, SKIN CA HX History of Any Multi-Drug Resistant Organisms: None Reported Past Surgical History: Section, Cholecystectomy, Heart Catheterization With Stent, Hernia Repair, Joint Replacement, Tonsillectomy Additional Past Surgical History / Comment(s): LEFT KNEE REPLACEMENT, UMBILICAL HERNIA REPAIR, cataract surgery Past Anesthesia/Blood Transfusion Reactions: No Reported Reaction Date of Last Stent Placement:: 2014 Past Psychological History: No Psychological Hx Reported Smoking Status: Never smoker Past Alcohol Use History: None Reported Past Drug Use History: None Reported - Past Family History Father Family Medical History: Myocardial Infarction ([place]) Additional Family Medical History / Comment(s): AT AGE 42 Brother(s) Family Medical History: Cancer Additional Family Medical History / Comment(s): liver and prostate cancer Medications and Allergies Home Medications Medication Instructions Recorded Confirmed Type Ergocalciferol [Vitamin D2 50,000 unit PO Q14D 06/16/14 10/21/22 History (DRISDOL)] Aspirin EC [Ecotrin Low Dose] 81 mg PO DAILY 01/15/19 10/21/22 History Atorvastatin [Lipitor] 40 mg PO HS 01/15/19 10/21/22 History Iron 28mg 28 mg PO DAILY 01/15/19 10/21/22 History Isosorbide Mononitrate ER [Imdur] 30 mg PO DAILY 01/15/19 10/21/22 History carvediloL [Coreg] 12.5 mg PO BID 01/15/19 10/21/22 History hydrALAZINE HCL [Apresoline] 50 mg PO BID #60 tab 01/19/19 10/21/22 Rx Pantoprazole Sodium [Protonix] 40 mg PO DAILY 05/17/20 10/21/22 History Retinovite Supplement 1 tab PO DAILY 05/17/20 10/21/22 History Semaglutide [Ozempic] 1 mg SQ FR 06/11/22 10/21/22 History glipiZIDE/METFORMIN HCL 1.5 tab PO BID 06/11/22 10/21/22 History [glipiZIDE/METFORMIN HCL 5-500 mg] Lidocaine-Prilocaine Cream [Emla 1 applic TOPICAL ONCE PRN 08/08/22 10/21/22 History Cream 2.5%/2.5%] Multivitamins, Thera [Multivitamin 1 tab PO DAILY 09/27/22 10/21/22 History (formulary)] Ondansetron [Zofran] 4 mg PO Q6H PRN 09/27/22 10/21/22 History Docusate [Colace] 100 mg PO DAILY PRN 10/21/22 10/21/22 History Insulin Detemir [Levemir Flextouch] 40 unit SQ HS 10/21/22 10/21/22 History Insulin Detemir [Levemir Flextouch] 45 unit SQ DAILY 10/21/22 10/21/22 History Levofloxacin [Levaquin] 500 mg PO DAILY 10/21/22 10/21/22 History Loperamide HCl [Imodium A-D] 2 mg PO BID PRN 10/21/22 10/21/22 History OLANZapine [ZyPREXA] 2.5 mg PO DIRECTED 10/21/22 10/21/22 History Vits A and D/White Pet/Lanolin [A 1 applic TOPICAL DAILY PRN 10/21/22 10/21/22 History and D Ointment] predniSONE 100 mg PO DIRECTED 06/27/23 06/27/23 History Allergies Allergy/AdvReac Type Severity Reaction Status Date / Time adhesive tape Allergy redness Verified 10/21/22 12:21 latex Allergy skin Verified 10/21/22 12:21 redness tegaderm AdvReac redness/bli Uncoded 10/21/22 09:10 ster Physical Exam Vitals: Vital Signs Temp Pulse Resp BP Pulse Ox 10/21/22 15:05 98.3 F 80 18 119/60 98 10/21/22 13:15 97.9 F 90 18 128/66 98 10/21/22 12:27 87 16 112/73 98 10/21/22 10:54 98 18 101/61 99 10/21/22 09:08 101 F H 111 H 18 110/67 90 L Intake and Output 10/21/22 10/21/22 10/21/22 06:59 14:59 22:59 Other: Weight 81.647 kg -GENERAL: The patient is alert and oriented x3, not in any acute distress. Obese pale and lethargic HEENT: Pupils are round and equally reacting to light. EOMI. No scleral icterus. No conjunctival pallor. Normocephalic, atraumatic. No pharyngeal erythema. No thyromegaly. CARDIOVASCULAR: S1 and S2 present. No murmurs, rubs, or gallops. PULMONARY: Chest is clear to auscultation, no wheezing . no crackles. ABDOMEN: Soft, nontender, nondistended, normoactive bowel sounds. No palpable o rganomegaly. MUSCULOSKELETAL: No joint swelling or deformity. EXTREMITIES: No cyanosis, clubbing, or pedal edema. NEUROLOGICAL: Gross neurological examination did not reveal any focal deficits. SKIN: No rashes. no petechiae. Results CBC & Chem 7: 10/21/22 09:38 10/21/22 09:38 Labs: Abnormal Lab Results - Last 24 Hours (Table) 10/21/22 10/21/22 10/21/22 Range/Units 09:38 09:38 09:38 RBC 2.29 L (3.80-5.40) m/uL Hgb 7.3 L (11.4-16.0) gm/dL Hct 21.3 L (34.0-46.0) % RDW 20.7 H (11.5-15.5) % Plt Count 73 L D (150-450) k/uL Lymphocytes # 0.1 L (1.0-4.8) k/uL Sodium 131 L (137-145) mmol/L Glucose 148 H (74-99) mg/dL Calcium 7.5 L (8.4-10.2) mg/dL Magnesium 1.1 L (1.6-2.3) mg/dL Troponin I (0.000-0.034) ng/mL Total Protein 5.3 L (6.3-8.2) g/dL Albumin 3.0 L (3.5-5.0) g/dL Urine Appearance Cloudy H (Clear) Urine Protein Trace H (Negative) Ur Leukocyte Esterase Trace H (Negative) Urine WBC 9 H (0-5) /hpf Urine Bacteria Rare H (None) /hpf Urine Mucus Many H (None) /hpf 10/21/22 Range/Units 09:38 RBC (3.80-5.40) m/uL Hgb (11.4-16.0) gm/dL Hct (34.0-46.0) % RDW (11.5-15.5) % Plt Count (150-450) k/uL Lymphocytes # (1.0-4.8) k/uL Sodium (137-145) mmol/L Glucose (74-99) mg/dL Calcium (8.4-10.2) mg/dL Magnesium (1.6-2.3) mg/dL Troponin I 0.500 H* (0.000-0.034) ng/mL Total Protein (6.3-8.2) g/dL Albumin (3.5-5.0) g/dL Urine Appearance (Clear) Urine Protein (Negative) Ur Leukocyte Esterase (Negative) Urine WBC (0-5) /hpf Urine Bacteria (None) /hpf Urine Mucus (None) /hpf Assessment and Plan Assessment: Febrile illness in immunocompromised patient Lymphoma undergoing chemotherapy Diabetes mellitus Hypertension Hyperlipidemia History of coronary artery disease status post stent Obesity with BMI of 30.9 Plan: We will start cefepime Check blood culture and panculture Check inflammatory markers with Protonix calcitonin and CRP Infectious disease consult Hematology oncology team consult Labs and medication were reviewed.. Continue same treatment. Continue with symptomatic treatment. Resume home medication. Monitor labs and vitals. DVT and GI prophylaxis. Further recommendations as per clinical course of the patient DVT prophylaxis: Subcutaneous heparin GI Prophylaxis: ppi Prognosis is guarded
[2022-10-21 20:13] LABS: Glucose,Whole Blood 209 mg/dL (70-110)
[2022-10-21] MEDS: ATORVASTATIN 40 MG TAB PO SCH (20:15)
[2022-10-21] MEDS: hydrALAZINE HCL 50 MG TAB PO SCH (20:15)
[2022-10-21] MEDS: CEFEPIME 2 GM in SODIUM CHLORIDE 0.9% 100 ML IVPB SCH (20:15)
[2022-10-21] MEDS: carvediloL 12.5 MG TAB PO SCH (20:15)
[2022-10-21] MEDS ORDERED: HEPARIN SODIUM,PORCINE/PF 5,000 UNIT/0.5 ML SYRINGE SQ SCH (21:00)
[2022-10-22] MEDS: SODIUM CHLORIDE 0.9% 1,000 ML IV SCH ×2 (05:06→21:02)
[2022-10-22] MEDS: CEFEPIME 2 GM in SODIUM CHLORIDE 0.9% 100 ML IVPB SCH ×3 (05:07→21:04)
[2022-10-22 06:07] LABS: Glucose,Whole Blood 197 mg/dL (70-110)
[2022-10-22] MEDS ORDERED: DEXTROSE 50% SYRINGE 50 ML IVP PRN ×2 (06:15)
[2022-10-22] MEDS: INSULIN ASPART (NovoLOG) 100 UNIT/ML VIAL SQ SCH ×4 (06:34→21:04)
[2022-10-22] MEDS: carvediloL 12.5 MG TAB PO SCH ×2 (06:34→17:21)
[2022-10-22 06:48] LABS: Anisocytosis Moderate; Basophils % (A) 0 %; Eosinophils % (A) 1 %; Lymphocytes # (A) 0.1 k/uL (1.0-4.8); Lymphocytes % (A) 3 %; MCH 32.7 pg (25.0-35.0); MCV 96.1 fL (80.0-100.0); Macrocytosis Slight; Mean Platelet Volume 8.2; Monocytes # (A) 0.2 k/uL (0-1.0); Monocytes % (A) 4 %; Neutrophils % (A) 92 %; Platelet Count 82 k/uL (150-450); Poikilocytosis Slight; RBC 2.02 m/uL (3.80-5.40); WBC 4.4 k/uL (3.8-10.6)
[2022-10-22 06:51] LABS: HGB 6.6 gm/dL (11.4-16.0)
[2022-10-22 06:52] LABS: HCT 19.4 % (34.0-46.0)
[2022-10-22 07:00] LABS: African American GFR (CKD) >90 (>60 ml/min/1.73 sqM); Anion Gap 6 mmol/L; Blood Urea Nitrogen 11 mg/dL (7-17); Calcium 6.9 mg/dL (8.4-10.2); Carbon Dioxide 28 mmol/L (22-30); Chloride 98 mmol/L (98-107); Glucose 181 mg/dL (74-99); Non-African American GFR(CKD) >90 (>60 ml/min/1.73 sqM); Potassium 3.5 mmol/L (3.5-5.1); Sodium 132 mmol/L (137-145)
[2022-10-22] MEDS: PANTOPRAZOLE 40 MG TABLET PO SCH (08:53)
[2022-10-22] MEDS: hydrALAZINE HCL 50 MG TAB PO SCH ×2 (08:53→21:04)
[2022-10-22] MEDS: MULTIVITAMINS, THERA 1 EACH TAB PO SCH (08:53)
[2022-10-22] MEDS: ASPIRIN 81 MG PO SCH (08:53)
[2022-10-22] MEDS: ISOSORBIDE MONONITRATE ER 30 MG TAB.ER.24H PO SCH (08:53)
[2022-10-22] MEDS: AZITHROMYCIN 500 MG in SODIUM CHLORIDE 0.9% 250 ML IVPB SCH (09:50)
[2022-10-22 11:26] LABS: Glucose,Whole Blood 306 mg/dL (70-110)
--- NOTE | 2022-10-22 12:18 | P.CRDCN ---
History of Present Illness History of present illness: HISTORY OF PRESENT ILLNESS: This is a 77-year-old female with a past medical history significant for lymphoma currently undergoing chemotherapy, coronary artery disease with previous stenting, hypertension, hyperlipidemia, and diabetes. Patient follows in the office with Dr. Dr. Wolfe. We have been asked to see the patient in consultation for abnormal troponins. Patient examined at the bedside. Patient presented to the emergency room with a chief complaint of a fever. Patient states that she receives chemotherapy every 3 weeks and was next scheduled to have chemotherapy on October 30. She also reports she has been feeling extremely weak over the past couple days. She denies having any chest pain or pressure. She reports mild shortness of breath which she states is at her baseline. Vital signs are stable. Telemetry this morning revealed mild sinus tachycardia with a heart rate between [id number]. * EKG reveals sinus tachycardia with right bundle branch block. No signs of acute ischemia. * Chest xray cardiomegaly and mild pulmonary vascular congestion. * Laboratory data: WBC 4.4. Hemoglobin 6.6. Platelet count 82. Sodium 132. Potassium 3.5. BUN 11. Creatinine 0.51. Troponin 0.500. 0.536. 0.315. * Current home cardiac medications include aspirin 81 mg daily, Lipitor 40 mg at night, Imdur 30 mg daily, carvedilol 12.5 mg twice a day, hydralazine 50 mg twice a day * Most recent echocardiogram obtained on 09/26/2022 revealed ejection fraction 5 0-55% with mild aortic stenosis * Cardiac catheterization history: April 2020 revealing intermediate to severe disease of the ostial circumflex. Patent stent to the LAD. REVIEW OF SYSTEMS: At the time of my exam: CONSTITUTIONAL: Denies fever or chills. HEENT: Denies blurred vision, vision changes, or eye pain. Denies hemoptysis CARDIOVASCULAR: Denies chest pain. Denies orthopnea. Denies PND. Denies palpitations RESPIRATORY: Denies shortness of breath. GASTROINTESTINAL: Denies abdominal pain. Denies nausea or vomiting. HEMATOLOGIC: Denies bleeding disorders. GENITOURINARY: Denies any blood in urine. SKIN: Denies pruitis. Denies rash. PHYSICAL EXAM: VITAL SIGNS: Reviewed. GENERAL: Well-developed in no acute distress. HEENT: Head is normocephalic. Pupils are equal, round. Sclerae anicteric. Mucous membranes of the mouth are moist. Neck supple. No JVD or thyromegaly LUNGS: Respirations even and unlabored. Lungs essentially clear to auscultation bilaterally. HEART: Regular rate and rhythm. S1 and S2 heard. ABDOMEN: Soft. Nondistended. Nontender. EXTREMITIES: Normal range of motion. No clubbing or cyanosis. Peripheral pul ses intact. No lower extremity edema NEUROLOGIC: Awake and alert. Oriented x 3. ASSESSMENT: Fever in immunocompromised patient Abnormal troponins, suspect secondary to infectious process, no evidence of acute coronary syndrome Lymphoma, currently undergoing chemotherapy Coronary artery disease with previous stenting Hypertension Hyperlipidemia Diabetes PLAN: An acute coronary event has been ruled out Obtain 2D echo to assess cardiac structure and function Resume home cardiac medications Further recommendations pending patient course Nurse practitioner note has been reviewed by physician. Signing provider agrees with the documented findings, assessment, and plan of care. Past Medical History Past Medical History: Coronary Artery Disease (CAD), Cancer, Diabetes Mellitus, Hyperlipidemia, Hypertension Additional Past Medical History / Comment(s): SHORTNESS OF BREATH AND FATIGUE, SKIN CA HX History of Any Multi-Drug Resistant Organisms: None Reported Past Surgical History: Section, Cholecystectomy, Heart Catheterization With Stent, Hernia Repair, Joint Replacement, Tonsillectomy Additional Past Surgical History / Comment(s): LEFT KNEE REPLACEMENT, UMBILICAL HERNIA REPAIR, cataract surgery Past Anesthesia/Blood Transfusion Reactions: No Reported Reaction Date of Last Stent Placement:: 2014 Past Psychological History: No Psychological Hx Reported Smoking Status: Never smoker Past Alcohol Use History: None Reported Past Drug Use History: None Reported - Past Family History Father Family Medical History: Myocardial Infarction ([place]) Additional Family Medical History / Comment(s): AT AGE 42 Brother(s) Family Medical History: Cancer Additional Family Medical History / Comment(s): liver and prostate cancer Medications and Allergies Home Medications Medication Instructions Recorded Confirmed Type Ergocalciferol [Vitamin D2 50,000 unit PO Q14D 06/16/14 10/21/22 History (DRISDOL)] Aspirin EC [Ecotrin Low Dose] 81 mg PO DAILY 01/15/19 10/21/22 History Atorvastatin [Lipitor] 40 mg PO HS 01/15/19 10/21/22 History Iron 28mg 28 mg PO DAILY 01/15/19 10/21/22 History Isosorbide Mononitrate ER [Imdur] 30 mg PO DAILY 01/15/19 10/21/22 History carvediloL [Coreg] 12.5 mg PO BID 01/15/19 10/21/22 History hydrALAZINE HCL [Apresoline] 50 mg PO BID #60 tab 01/19/19 10/21/22 Rx Pantoprazole Sodium [Protonix] 40 mg PO DAILY 05/17/20 10/21/22 History Retinovite Supplement 1 tab PO DAILY 05/17/20 10/21/22 History Semaglutide [Ozempic] 1 mg SQ FR 06/11/22 10/21/22 History glipiZIDE/METFORMIN HCL 1.5 tab PO BID 06/11/22 10/21/22 History [glipiZIDE/METFORMIN HCL 5-500 mg] Lidocaine-Prilocaine Cream [Emla 1 applic TOPICAL ONCE PRN 08/08/22 10/21/22 History Cream 2.5%/2.5%] Multivitamins, Thera [Multivitamin 1 tab PO DAILY 09/27/22 10/21/22 History (formulary)] Ondansetron [Zofran] 4 mg PO Q6H PRN 09/27/22 10/21/22 History Docusate [Colace] 100 mg PO DAILY PRN 10/21/22 10/21/22 History Insulin Detemir [Levemir Flextouch] 40 unit SQ HS 10/21/22 10/21/22 History Insulin Detemir [Levemir Flextouch] 45 unit SQ DAILY 10/21/22 10/21/22 History Levofloxacin [Levaquin] 500 mg PO DAILY 10/21/22 10/21/22 History Loperamide HCl [Imodium A-D] 2 mg PO BID PRN 10/21/22 10/21/22 History OLANZapine [ZyPREXA] 2.5 mg PO DIRECTED 10/21/22 10/21/22 History Vits A and D/White Pet/Lanolin [A 1 applic TOPICAL DAILY PRN 10/21/22 10/21/22 History and D Ointment] predniSONE 100 mg PO DIRECTED 10/21/22 10/21/22 History Allergies Allergy/AdvReac Type Severity Reaction Status Date / Time adhesive tape Allergy redness Verified 10/21/22 12:21 latex Allergy skin Verified 10/21/22 12:21 redness tegaderm AdvReac redness/bli Uncoded 10/21/22 09:10 ster Physical Exam Vitals: Vital Signs Temp Pulse Pulse Resp BP BP Pulse Ox 10/22/22 08:00 98.2 F 88 16 108/52 94 L 10/22/22 04:05 98.7 F 97 20 123/62 99 10/22/22 02:05 111 H 22 10/22/22 00:10 22 93 L 10/22/22 00:00 98 F 111 H 22 126/61 87 L 10/21/22 20:00 97.6 F 107 H 20 144/61 91 L 10/21/22 18:01 97.6 F 92 18 134/60 94 L 10/21/22 17:22 97.8 F 92 18 134/60 94 L 10/21/22 16:17 80 18 112/52 97 10/21/22 15:05 98.3 F 80 18 119/60 98 10/21/22 13:15 97.9 F 90 18 128/66 98 10/21/22 12:27 87 16 112/73 98 Intake and Output 10/21/22 10/22/22 10/22/22 22:59 06:59 14:59 Intake Total 480 Balance 480 Intake: Oral 480 Other: Voiding Method Toilet Toilet Toilet # Voids 1 1 1 # Bowel Movements 1 Weight 81.647 kg Results 10/22/22 06:21 10/22/22 06:21 Cardiac Enzymes 10/21/22 10/21/22 Range/Units 15:37 21:42 Troponin I 0.536 H* 0.315 H* (0.000-0.034) ng/mL CBC 10/22/22 Range/Units 06:21 WBC 4.4 (3.8-10.6) k/uL RBC 2.02 L (3.80-5.40) m/uL Hgb 6.6 L* (11.4-16.0) gm/dL Hct 19.4 L* (34.0-46.0) % Plt Count 82 L (150-450) k/uL Comprehensive Metabolic Panel 10/22/22 Range/Units 06:21 Sodium 132 L (137-145) mmol/L Potassium 3.5 (3.5-5.1) mmol/L Chloride 98 (98-107) mmol/L Carbon Dioxide 28 (22-30) mmol/L BUN 11 (7-17) mg/dL Creatinine 0.51 L (0.52-1.04) mg/dL Glucose 181 H (74-99) mg/dL Calcium 6.9 L (8.4-10.2) mg/dL Current Medications Generic Name Dose Route Start Last Admin Trade Name Emirq PRN Reason Stop Dose Admin Acetaminophen 650 mg 10/21/22 13:54 Acetaminophen Tab 325 Mg Tab PO Q6HR PRN Mild Pain or Fever > 100.5 Aspirin 81 mg 10/22/22 09:00 10/22/22 08:53 Aspirin 81 Mg PO 81 mg DAILY [facility] Administration Atorvastatin Calcium 40 mg 10/21/22 21:00 10/21/22 20:15 Atorvastatin 40 Mg Tab PO 40 mg HS [facility] Administration Carvedilol 12.5 mg 10/21/22 19:00 10/22/22 06:34 Carvedilol 12.5 Mg Tab PO 12.5 mg AC-BID [facility] Administration Dextrose/Water 25 ml 10/22/22 06:15 Dextrose 50% Syringe 50 Ml IVP PER PROTOCOL PRN Hypoglycemia Protocol Dextrose/Water 50 ml 10/22/22 06:15 Dextrose 50% Syringe 50 Ml IVP PER PROTOCOL PRN Hypoglycemia Protocol Docusate Sodium 100 mg 10/21/22 18:44 Docusate 100 Mg Cap PO DAILY PRN Constipation Hydralazine HCl 50 mg 10/21/22 21:00 10/22/22 08:53 Hydralazine Hcl 50 Mg Tab PO 50 mg BID [facility] Administration Sodium Chloride 1,000 mls @ 75 mls/hr 10/21/22 14:00 10/22/22 05:06 Saline 0.9% IV Not Given .[id number] [facility] Cefepime HCl 2 gm/ Sodium 100 mls @ 25 mls/hr 10/21/22 20:00 10/22/22 05:07 Chloride IVPB 25 mls/hr Q8H [facility] Administration Protocol Azithromycin 500 mg/ Sodium 250 mls @ 250 mls/hr 10/22/22 09:00 10/22/22 09:50 Chloride IVPB 10/24/22 09:59 250 mls/hr DAILY [facility] Administration Protocol Insulin Aspart 0 unit 10/22/22 07:30 10/22/22 06:34 Insulin Aspart (Novolog) 100 Unit/Ml Vial SQ 2 unit ACHS [facility] Administration Protocol Isosorbide Mononitrate 30 mg 10/22/22 09:00 10/22/22 08:53 Isosorbide Mononitrate Er 30 Mg Tab.Er.24h PO 30 mg DAILY [facility] Administration Loperamide HCl 2 mg 10/21/22 18:44 Loperamide 2 Mg Cap PO BID PRN Diarrhea Multivitamins 1 each 10/22/22 09:00 10/22/22 08:53 Multivitamins, Thera 1 Each Tab PO 1 each DAILY [facility] Administration Naloxone HCl 0.2 mg 10/21/22 13:54 Naloxone 0.4 Mg/Ml 1 Ml Vial IV Q2M PRN Opioid Reversal Olanzapine 2.5 mg 10/30/22 09:00 Olanzapine 2.5 Mg Tab PO 11/05/22 09:01 DAILY [facility] Pantoprazole Sodium 40 mg 10/22/22 09:00 10/22/22 08:53 Pantoprazole 40 Mg Tablet PO 40 mg DAILY [facility] Administration Intake and Output 10/21/22 10/22/22 10/22/22 22:59 06:59 14:59 Intake Total 480 Balance 480 Intake: Oral 480 Other: Voiding Method Toilet Toilet Toilet # Voids 1 1 1 # Bowel Movements 1 Weight 81.647 kg 10/22/22 06:21 10/22/22 06:21
--- NOTE | 2022-10-22 14:19 | P.PN ---
Subjective This is a pleasant 8 years old male with past medical history of hypertension, diabetes mellitus, hyperlipidemia, nicotine dependence, history of CVA/TIA, History of coronary artery disease status post CABG. Traveling Secretary: Dr. Mcgregor. PCP is Dr. Wilson. He is status post bilateral endarterectomy with Dr. briones, last one was about 2 years ago. Patient presents because of right-sided weakness and numbness. Patient says that he presents because of numbness and tingling in his right side. He had a 1-2 episodes about 2 weeks ago of tingling on the right side that lasted about 15 minutes Since last Thursday about 3 days ago his been having numbness in house for right side from his top of the body till his feet he described it as a discomfort in his body in half side of the chest on the right side of the belly is not compared to the left side. He denies any other symptom, no chest pain dyspnea cough and GI or urinary complaints He smokes about 1 pack per week and he was counseled to quit he agrees but he declines nicotine patch alcohol occasionally and no illicit drugs. Vitals stable, heart rate low-normal go down to 50s during sleep. Unremarkable CBC, INR, BMP, liver enzymes, troponin and creatinine kinase CT of the brain, no acute process. CTA of the head and neck: No acute abnormality noticed on both areas Chest x-ray: No acute process EKG: Sinus bradycardia at [address]-T changes on the lateral and anterior chest limits however patient has T-wave inversion in the inferior right In the emergency room patient was started on aspirin and he was admitted within urology team consult 10/22/2022 Patient clinically looks the same with no new complaints she just feels tired and lethargic and embedded. Denies respiratory or urinary or GI symptoms. No more fever since admission. CALCITONIN only mildly elevated as well as COPD, currently on cefepime and Zithromax although pulmonary findings on the chest x-ray is suspicious for fluid overload. ProBNP is patent 3150 Currently she is on normal saline 75 mL/h (especially patient with poor appetite). To treat her Her sepsis, we don't Lasix 40 mg daily. Most likely patient has developed systolic CHF with ejection fraction 50-55% based on echocardiogram done already earlier this month Hemoglobin dropped to 6.6 today and she received 1 unit of blood transfusion Active Medications Generic Name Dose Route Start Last Admin Trade Name Freq PRN Reason Stop Dose Admin Acetaminophen 650 mg 10/21/22 13:54 Acetaminophen Tab 325 Mg Tab PO Q6HR PRN Mild Pain or Fever > 100.5 Aspirin 81 mg 10/22/22 09:00 10/22/22 08:53 Aspirin 81 Mg PO 81 mg DAILY [facility] Administration Atorvastatin Calcium 40 mg 10/21/22 21:00 10/21/22 20:15 Atorvastatin 40 Mg Tab PO 40 mg HS [facility] Administration Carvedilol 12.5 mg 10/21/22 19:00 10/22/22 06:34 Carvedilol 12.5 Mg Tab PO 12.5 mg AC-BID [facility] Administration Dextrose/Water 25 ml 10/22/22 06:15 Dextrose 50% Syringe 50 Ml IVP PER PROTOCOL PRN Hypoglycemia Protocol Dextrose/Water 50 ml 10/22/22 06:15 Dextrose 50% Syringe 50 Ml IVP PER PROTOCOL PRN Hypoglycemia Protocol Docusate Sodium 100 mg 10/21/22 18:44 Docusate 100 Mg Cap PO DAILY PRN Constipation Furosemide 40 mg 10/22/22 14:30 Furosemide 10 Mg/Ml 4 Ml Vial IV DAILY [facility] Hydralazine HCl 50 mg 10/21/22 21:00 10/22/22 08:53 Hydralazine Hcl 50 Mg Tab PO 50 mg BID [facility] Administration Sodium Chloride 1,000 mls @ 75 mls/hr 10/21/22 14:00 10/22/22 05:06 Saline 0.9% IV Not Given .[id number] [facility] Cefepime HCl 2 gm/ Sodium 100 mls @ 25 mls/hr 10/21/22 20:00 10/22/22 13:04 Chloride IVPB 25 mls/hr Q8H [facility] Administration Protocol Azithromycin 500 mg/ Sodium 250 mls @ 250 mls/hr 10/22/22 09:00 10/22/22 09:50 Chloride IVPB 10/24/22 09:59 250 mls/hr DAILY [facility] Administration Protocol Insulin Aspart 0 unit 10/22/22 07:30 10/22/22 13:04 Insulin Aspart (Novolog) 100 Unit/Ml Vial SQ 8 unit ACHS [facility] Administration Protocol Isosorbide Mononitrate 30 mg 10/22/22 09:00 10/22/22 08:53 Isosorbide Mononitrate Er 30 Mg Tab.Er.24h PO 30 mg DAILY [facility] Administration Loperamide HCl 2 mg 10/21/22 18:44 Loperamide 2 Mg Cap PO BID PRN Diarrhea Multivitamins 1 each 10/22/22 09:00 10/22/22 08:53 Multivitamins, Thera 1 Each Tab PO 1 each DAILY [facility] Administration Naloxone HCl 0.2 mg 10/21/22 13:54 Naloxone 0.4 Mg/Ml 1 Ml Vial IV Q2M PRN Opioid Reversal Olanzapine 2.5 mg 10/30/22 09:00 Olanzapine 2.5 Mg Tab PO 11/05/22 09:01 DAILY [facility] Pantoprazole Sodium 40 mg 10/22/22 09:00 10/22/22 08:53 Pantoprazole 40 Mg Tablet PO 40 mg DAILY [facility] Administration Objective - Vital Signs Vital signs: Vital Signs Temp 98.2 F 10/22/22 08:00 Pulse 88 10/22/22 12:00 Resp 16 10/22/22 12:00 BP 106/52 10/22/22 12:00 Pulse Ox 93 L 10/22/22 12:00 FiO2 Intake & Output 10/21/22 10/22/22 10/22/22 18:59 06:59 18:59 Intake Total 590 Balance 590 Weight 81.647 kg Intake: Oral 590 Other: Voiding Method Toilet Toilet # Voids 1 1 # Bowel Movements 1 - Exam -GENERAL: The patient is alert and oriented x3, not in any acute distress. Well developed, well nourished. Generally tired and weak. HEENT: Pupils are round and equally reacting to light. EOMI. No scleral icterus. No conjunctival pallor. Normocephalic, atraumatic. No pharyngeal erythema. No thyromegaly. CARDIOVASCULAR: S1 and S2 present. No murmurs, rubs, or gallops. PULMONARY: Chest is clear to auscultation, no wheezing , no crackles. ABDOMEN: Soft, nontender, nondistended, normoactive bowel sounds. No palpable organomegaly. MUSCULOSKELETAL: No joint swelling or deformity. EXTREMITIES: No cyanosis, clubbing, or pedal edema. NEUROLOGICAL: Gross neurological examination did not reveal any focal deficits. SKIN: No rashes. no petechiae. - Labs CBC & Chem 7: 10/22/22 06:21 10/22/22 06:21 Labs: Abnormal Lab Results - Last 24 Hours (Table) 10/21/22 10/21/22 10/21/22 Range/Units 15:37 16:49 20:11 RBC (3.80-5.40) m/uL Hgb (11.4-16.0) gm/dL Hct (34.0-46.0) % RDW (11.5-15.5) % Plt Count (150-450) k/uL Lymphocytes # (1.0-4.8) k/uL Sodium (137-145) mmol/L Creatinine (0.52-1.04) mg/dL Glucose (74-99) mg/dL POC Glucose (mg/dL) 168 H 209 H (70-110) mg/dL Calcium (8.4-10.2) mg/dL Troponin I 0.536 H* (0.000-0.034) ng/mL C-Reactive Protein (<1.0) mg/dL Procalcitonin (0.02-0.09) ng/mL Crossmatch 10/21/22 10/22/22 10/22/22 Range/Units 21:42 06:04 06:21 RBC (3.80-5.40) m/uL Hgb (11.4-16.0) gm/dL Hct (34.0-46.0) % RDW (11.5-15.5) % Plt Count (150-450) k/uL Lymphocytes # (1.0-4.8) k/uL Sodium (137-145) mmol/L Creatinine (0.52-1.04) mg/dL Glucose (74-99) mg/dL POC Glucose (mg/dL) 197 H (70-110) mg/dL Calcium (8.4-10.2) mg/dL Troponin I 0.315 H* (0.000-0.034) ng/mL C-Reactive Protein (<1.0) mg/dL Procalcitonin 0.12 H (0.02-0.09) ng/mL Crossmatch 10/22/22 10/22/22 10/22/22 Range/Units 06:21 06:21 11:24 RBC 2.02 L (3.80-5.40) m/uL Hgb 6.6 L* (11.4-16.0) gm/dL Hct 19.4 L* (34.0-46.0) % RDW 21.0 H (11.5-15.5) % Plt Count 82 L (150-450) k/uL Lymphocytes # 0.1 L (1.0-4.8) k/uL Sodium 132 L (137-145) mmol/L Creatinine 0.51 L (0.52-1.04) mg/dL Glucose 181 H (74-99) mg/dL POC Glucose (mg/dL) 306 H (70-110) mg/dL Calcium 6.9 L (8.4-10.2) mg/dL Troponin I (0.000-0.034) ng/mL C-Reactive Protein 9.0 H (<1.0) mg/dL Procalcitonin (0.02-0.09) ng/mL Crossmatch 10/22/22 Range/Units 11:59 RBC (3.80-5.40) m/uL Hgb (11.4-16.0) gm/dL Hct (34.0-46.0) % RDW (11.5-15.5) % Plt Count (150-450) k/uL Lymphocytes # (1.0-4.8) k/uL Sodium (137-145) mmol/L Creatinine (0.52-1.04) mg/dL Glucose (74-99) mg/dL POC Glucose (mg/dL) (70-110) mg/dL Calcium (8.4-10.2) mg/dL Troponin I (0.000-0.034) ng/mL C-Reactive Protein (<1.0) mg/dL Procalcitonin (0.02-0.09) ng/mL Crossmatch See Detail Assessment and Plan Assessment: Febrile illness in immunocompromised patient Lymphoma undergoing chemotherapy 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 Continue same treatment. Continue with symptomatic treatment. Resume home medication. Monitor labs and vitals. DVT and GI prophylaxis. Further recommendations as per clinical course of the patient DVT prophylaxis: Subcutaneous heparin GI Prophylaxis: ppi Prognosis is guarded,
[2022-10-22] MEDS ORDERED: FUROSEMIDE 10 MG/ML 4 ML VIAL IV SCH (14:30)
[2022-10-22 16:12] LABS: Glucose,Whole Blood 254 mg/dL (70-110)
--- NOTE | 2022-10-22 16:13 | P.CONS ---
History of Present Illness - Reason for Consult Consult date: 10/22/22 onc pt Requesting physician: Damon Walter - Chief Complaint fever - History of Present Illness Ms. Veras is a 77-year-old female Patient of Dr. Cox, Recent diagnosis of NHL, BCL-2 positive, status post 1 cycle of R CHOP, changed to R-boston-CHP, she has had 3 cycles of the same (total 4 cycles), with G-CSF. She was admitted for febrile neutropenia 09/27/22 3 cycles of Tx. She was treated with antibiotics, given hydration. No infection source found, patient recovered and was discharged. She is currently admitted for fever, 101 on admit. WBC today is 4.4, hemoglobin is 6.6, 1 unit of packed red blood cells ordered, platelets 82,000. Pt has no significant oral irritation, painful swallowing, nausea, vomiting. She was noting shortness of breath with activity, generalized weakness, poor energy levels. Appetite is fair. She denied urinary symptoms, hematuria, hematochezia or melena. Urinary analysis little suspicious, chest x- ray report stating cardiomegaly and some pulmonary vascular congestion, blood cultures pending. Empiric antibiotics started. Malignancy history: Patient first noted a left supraclavicular enlarged lymph node 05/19. PCP Dr. Jimenez wright referred to ENT Dr. Humphries. CT soft tissue neck 05/16/22 revealed 3.1 x 2.8 cm left supraclavicular lymph node, FNA 06/04/22 nondiagnostic, core biopsy 06/23/22 positive for necrotic, poorly differentiated malignant neoplasm favoring diffuse large B-cell lymphoma, no germinal center, BCL-2 positive, weakly positive for MUM1, flow did not show viable cells, Ki-67 not done. Echo 07/10/22 reported low normal ejection fraction. Staging PET 07/18/22 suspicious uptake in supraclavicular, retrocaval, periaortic and mesenteric nodes. 07/23/22 repeat excisional biopsy revealed high grade B cell lymphoma, ABC subtype, fish negative for double hit lymphoma. Started R CHOP, had 1 cycle, changed to R-boston-CHP. Restaging PET scan after 3 treatments showed a complete response. Review of Systems 10 point review of systems is negative except as stated in HPI Past Medical History Past Medical History: Coronary Artery Disease (CAD), Cancer, Diabetes Mellitus, Hyperlipidemia, Hypertension Additional Past Medical History / Comment(s): SHORTNESS OF BREATH AND FATIGUE, SKIN CA HX History of Any Multi-Drug Resistant Organisms: None Reported Past Surgical History: Section, Cholecystectomy, Heart Catheterization With Stent, Hernia Repair, Joint Replacement, Tonsillectomy Additional Past Surgical History / Comment(s): LEFT KNEE REPLACEMENT, UMBILICAL HERNIA REPAIR, cataract surgery Past Anesthesia/Blood Transfusion Reactions: No Reported Reaction Date of Last Stent Placement:: 2014 Past Psychological History: No Psychological Hx Reported Smoking Status: Never smoker Past Alcohol Use History: None Reported Past Drug Use History: None Reported - Past Family History Father Family Medical History: Myocardial Infarction ([place]) Additional Family Medical History / Comment(s): AT AGE 42 Brother(s) Family Medical History: Cancer Additional Family Medical History / Comment(s): liver and prostate cancer Medications and Allergies Home Medications Medication Instructions Recorded Confirmed Type Ergocalciferol [Vitamin D2 50,000 unit PO Q14D 06/16/14 10/21/22 History (CORTEZ)] Aspirin EC [Ecotrin Low Dose] 81 mg PO DAILY 01/15/19 10/21/22 History Atorvastatin [Lipitor] 40 mg PO HS 01/15/19 10/21/22 History Iron 28mg 28 mg PO DAILY 01/15/19 10/21/22 History Isosorbide Mononitrate ER [Imdur] 30 mg PO DAILY 01/15/19 10/21/22 History carvediloL [Coreg] 12.5 mg PO BID 01/15/19 10/21/22 History hydrALAZINE HCL [Apresoline] 50 mg PO BID #60 tab 01/19/19 10/21/22 Rx Pantoprazole Sodium [Protonix] 40 mg PO DAILY 05/17/20 10/21/22 History Retinovite Supplement 1 tab PO DAILY 05/17/20 10/21/22 History Semaglutide [Ozempic] 1 mg SQ FR 06/11/22 10/21/22 History glipiZIDE/METFORMIN HCL 1.5 tab PO BID 06/11/22 10/21/22 History [glipiZIDE/METFORMIN HCL 5-500 mg] Lidocaine-Prilocaine Cream [Emla 1 applic TOPICAL ONCE PRN 08/08/22 10/21/22 History Cream 2.5%/2.5%] Multivitamins, Thera [Multivitamin 1 tab PO DAILY 09/27/22 10/21/22 History (formulary)] Ondansetron [Zofran] 4 mg PO Q6H PRN 09/27/22 10/21/22 History Docusate [Colace] 100 mg PO DAILY PRN 10/21/22 10/21/22 History Insulin Detemir [Levemir Flextouch] 40 unit SQ HS 10/21/22 10/21/22 History Insulin Detemir [Levemir Flextouch] 45 unit SQ DAILY 10/21/22 10/21/22 History Levofloxacin [Levaquin] 500 mg PO DAILY 10/21/22 10/21/22 History Loperamide HCl [Imodium A-D] 2 mg PO BID PRN 10/21/22 10/21/22 History OLANZapine [ZyPREXA] 2.5 mg PO DIRECTED 10/21/22 10/21/22 History Vits A and D/White Pet/Lanolin [A 1 applic TOPICAL DAILY PRN 10/21/22 10/21/22 History and D Ointment] predniSONE 100 mg PO DIRECTED 10/21/22 10/21/22 History Allergies Allergy/AdvReac Type Severity Reaction Status Date / Time adhesive tape Allergy redness Verified 10/21/22 12:21 latex Allergy skin Verified 10/21/22 12:21 redness tegaderm AdvReac redness/bli Uncoded 10/21/22 09:10 ster Physical Exam Vitals: Vital Signs Temp Pulse Pulse Resp BP BP Pulse Ox 10/22/22 04:05 98.7 F 97 20 123/62 99 10/22/22 02:05 111 H 22 10/22/22 00:10 22 93 L 10/22/22 00:00 98 F 111 H 22 126/61 87 L 10/21/22 20:00 97.6 F 107 H 20 144/61 91 L 10/21/22 18:01 97.6 F 92 18 134/60 94 L 10/21/22 17:22 97.8 F 92 18 134/60 94 L 10/21/22 16:17 80 18 112/52 97 10/21/22 15:05 98.3 F 80 18 119/60 98 10/21/22 13:15 97.9 F 90 18 128/66 98 10/21/22 12:27 87 16 112/73 98 10/21/22 10:54 98 18 101/61 99 10/21/22 09:08 101 F H 111 H 18 110/67 90 L Intake and Output 10/21/22 10/22/22 10/22/22 22:59 06:59 14:59 Other: Voiding Method Toilet Toilet # Voids 1 1 Weight 81.647 kg - Constitutional General appearance: average body habitus, cooperative, no acute distress - EENT Eyes: anicteric sclerae, EOMI ENT: hearing grossly normal, normal oropharynx - Neck Neck: no lymphadenopathy - Respiratory Respiratory: bilateral: CTA - Cardiovascular Rhythm: regular (tachycardic, regular rhythm) Heart sounds: normal: S1, S2 Abnormal Heart Sounds: no systolic murmur, no diastolic murmur, no rub, no S3 Gallop, no S4 Gallop, no click, no other leg Peripheral Edema: bilateral: Trace - Gastrointestinal General gastrointestinal: no absent bowel sounds, no decreased bowel sounds, no distended, no hepatomegaly, no hyperactive bowel sounds, normal bowel sounds, no organomegaly, no rigid, no scaphoid, soft, no splenomegaly, no tenderness, no umbilical hernia, no ventral hernia - Integumentary Integumentary: pale - Neurologic Neurologic: CNII-XII intact - Musculoskeletal Musculoskeletal: generalized weakness - Psychiatric Psychiatric: A&O x's 3, appropriate affect, intact judgment & insight Results CBC & Chem 7: 10/22/22 06:21 10/22/22 06:21 Labs: Abnormal Lab Results - Last 24 Hours (Table) 10/21/22 10/21/22 10/21/22 Range/Units 09:38 09:38 09:38 RBC 2.29 L (3.80-5.40) m/uL Hgb 7.3 L (11.4-16.0) gm/dL Hct 21.3 L (34.0-46.0) % RDW 20.7 H (11.5-15.5) % Plt Count 73 L D (150-450) k/uL Lymphocytes # 0.1 L (1.0-4.8) k/uL Sodium 131 L (137-145) mmol/L Creatinine (0.52-1.04) mg/dL Glucose 148 H (74-99) mg/dL POC Glucose (mg/dL) (70-110) mg/dL Calcium 7.5 L (8.4-10.2) mg/dL Magnesium 1.1 L (1.6-2.3) mg/dL Troponin I (0.000-0.034) ng/mL Total Protein 5.3 L (6.3-8.2) g/dL Albumin 3.0 L (3.5-5.0) g/dL Urine Appearance Cloudy H (Clear) Urine Protein Trace H (Negative) Ur Leukocyte Esterase Trace H (Negative) Urine WBC 9 H (0-5) /hpf Urine Bacteria Rare H (None) /hpf Urine Mucus Many H (None) /hpf 10/21/22 10/21/22 10/21/22 Range/Units 09:38 15:37 16:49 RBC (3.80-5.40) m/uL Hgb (11.4-16.0) gm/dL Hct (34.0-46.0) % RDW (11.5-15.5) % Plt Count (150-450) k/uL Lymphocytes # (1.0-4.8) k/uL Sodium (137-145) mmol/L Creatinine (0.52-1.04) mg/dL Glucose (74-99) mg/dL POC Glucose (mg/dL) 168 H (70-110) mg/dL Calcium (8.4-10.2) mg/dL Magnesium (1.6-2.3) mg/dL Troponin I 0.500 H* 0.536 H* (0.000-0.034) ng/mL Total Protein (6.3-8.2) g/dL Albumin (3.5-5.0) g/dL Urine Appearance (Clear) Urine Protein (Negative) Ur Leukocyte Esterase (Negative) Urine WBC (0-5) /hpf Urine Bacteria (None) /hpf Urine Mucus (None) /hpf 10/21/22 10/21/22 10/22/22 Range/Units 20:11 21:42 06:04 RBC (3.80-5.40) m/uL Hgb (11.4-16.0) gm/dL Hct (34.0-46.0) % RDW (11.5-15.5) % Plt Count (150-450) k/uL Lymphocytes # (1.0-4.8) k/uL Sodium (137-145) mmol/L Creatinine (0.52-1.04) mg/dL Glucose (74-99) mg/dL POC Glucose (mg/dL) 209 H 197 H (70-110) mg/dL Calcium (8.4-10.2) mg/dL Magnesium (1.6-2.3) mg/dL Troponin I 0.315 H* (0.000-0.034) ng/mL Total Protein (6.3-8.2) g/dL Albumin (3.5-5.0) g/dL Urine Appearance (Clear) Urine Protein (Negative) Ur Leukocyte Esterase (Negative) Urine WBC (0-5) /hpf Urine Bacteria (None) /hpf Urine Mucus (None) /hpf 10/22/22 10/22/22 Range/Units 06:21 06:21 RBC 2.02 L (3.80-5.40) m/uL Hgb 6.6 L* (11.4-16.0) gm/dL Hct 19.4 L* (34.0-46.0) % RDW 21.0 H (11.5-15.5) % Plt Count 82 L (150-450) k/uL Lymphocytes # 0.1 L (1.0-4.8) k/uL Sodium 132 L (137-145) mmol/L Creatinine 0.51 L (0.52-1.04) mg/dL Glucose 181 H (74-99) mg/dL POC Glucose (mg/dL) (70-110) mg/dL Calcium 6.9 L (8.4-10.2) mg/dL Magnesium (1.6-2.3) mg/dL Troponin I (0.000-0.034) ng/mL Total Protein (6.3-8.2) g/dL Albumin (3.5-5.0) g/dL Urine Appearance (Clear) Urine Protein (Negative) Ur Leukocyte Esterase (Negative) Urine WBC (0-5) /hpf Urine Bacteria (None) /hpf Urine Mucus (None) /hpf Chest x-ray: report reviewed Assessment and Plan (1) Fever Current Visit: Yes Status: Acute Priority: High Code(s): R50.9 - FEVER, UNSPECIFIED SNOMED Code(s): 546510722 (2) Pancytopenia due to antineoplastic chemotherapy Current Visit: Yes Status: Acute Priority: High Code(s): D61.810 - ANTINEOPLASTIC CHEMOTHERAPY INDUCED PANCYTOPENIA; T45.1X5A - ADVERSE EFFECT OF ANTINEOPLASTIC AND IMMUNOSUP DRUGS, INIT SNOMED Code(s): 554586523063157 (3) NHL (non-Hodgkin's lymphoma) Current Visit: No Status: Acute Priority: Medium Code(s): C85.90 - NON- HODGKIN LYMPHOMA, UNSPECIFIED, UNSPECIFIED SITE SNOMED Code(s): 317588234 Plan: Fever -Pancultures pending -ID consulted -Empiric antibiotics initiated -No further fever since admission Pancytopenia from chemotherapy -WBC and ANC normal. Patient did receive G-CSF -Anemia, hemoglobin 6.6, 1 unit of packed red blood cells ordered. Transfuse for hemoglobin less than 7 -Platelets 82,000. Transfuse for platelets less than 10,000 or if symptomatic. Plt adequate for DVT prophylaxis-Ordered SCDs. She is okay to continue her daily baby aspirin at this time. Non-Hodgkin's lymphoma -Patient has completed 4 of 6 planned cycles of treatment. She received one R CHOP, 3 R-[place]-CHP -Patient is had moderate/severe hematological toxicities cycle 3 and 4. She has been hospitalized after cycles 3 and 4. She may require dose adjustment -Patient will follow-up with her primary Oncologist prior to resuming treatment attests: I seen and examined patient, performed H&P, developed impression and plan of care. Discussed with dictator. Agree with documentation, dictated as a scribe.
[2022-10-22 19:52] LABS: Glucose,Whole Blood 190 mg/dL (70-110)
[2022-10-22] MEDS: ATORVASTATIN 40 MG TAB PO SCH (21:04)
--- NOTE | 2022-10-22 21:55 | P.CONS ---
History of Present Illness - Reason for Consult Consult date: 10/22/22 - History of Present Illness Patient is a 77-year-old female with a past medical history significant for lymphoma for the patient is currently on chemotherapy last chemo on 10/09/2022 patient also history of diabetes hypertension hyperlipidemia presenting to the hospital yesterday morning for evaluation of weakness. The patient's, has been getting worse since Thursday night patient was feeling so weak that she could not get on the chair to the bed patient denies any history of any fall patient denies any significant headache or URI symptoms no chest pain or shortness with occasional cough no abdominal pain or diarrhea patient presented to the hospital was febrile with a temperature of 101 F patient was tachycardic and hypoxic with O2 sats of 90% currently 97% on 3 L nasal cannula patient did have a normal white count hemoglobin was low creatinine was normal limits labs were normal troponin was elevated urine was mildly positive influenza RSV and COVID testing was negative patient did have blood cultures obtained which are currently pending patient did have a chest x-ray cardiomegaly mild pulmonary vascular congestion correlate for congestive heart failure the patient was empirically started on cefepime and azithromycin infectious disease was consulted for further management of antibiotic therapy Past Medical History Past Medical History: Coronary Artery Disease (CAD), Cancer, Diabetes Mellitus, Hyperlipidemia, Hypertension Additional Past Medical History / Comment(s): SHORTNESS OF BREATH AND FATIGUE, SKIN CA HX History of Any Multi-Drug Resistant Organisms: None Reported Past Surgical History: Section, Cholecystectomy, Heart Catheterization With Stent, Hernia Repair, Joint Replacement, Tonsillectomy Additional Past Surgical History / Comment(s): LEFT KNEE REPLACEMENT, UMBILICAL HERNIA REPAIR, cataract surgery Past Anesthesia/Blood Transfusion Reactions: No Reported Reaction Date of Last Stent Placement:: 2014 Past Psychological History: No Psychological Hx Reported Smoking Status: Never smoker Past Alcohol Use History: None Reported Past Drug Use History: None Reported - Past Family History Father Family Medical History: Myocardial Infarction ([place]) Additional Family Medical History / Comment(s): AT AGE 42 Brother(s) Family Medical History: Cancer Additional Family Medical History / Comment(s): liver and prostate cancer Medications and Allergies Home Medications Medication Instructions Recorded Confirmed Type Ergocalciferol [Vitamin D2 50,000 unit PO Q14D 06/16/14 10/21/22 History (DRISDOL)] Aspirin EC [Ecotrin Low Dose] 81 mg PO DAILY 01/15/19 10/21/22 History Atorvastatin [Lipitor] 40 mg PO HS 01/15/19 10/21/22 History Iron 28mg 28 mg PO DAILY 01/15/19 10/21/22 History Isosorbide Mononitrate ER [Imdur] 30 mg PO DAILY 01/15/19 10/21/22 History carvediloL [Coreg] 12.5 mg PO BID 01/15/19 10/21/22 History hydrALAZINE HCL [Apresoline] 50 mg PO BID #60 tab 01/19/19 10/21/22 Rx Pantoprazole Sodium [Protonix] 40 mg PO DAILY 05/17/20 10/21/22 History Retinovite Supplement 1 tab PO DAILY 05/17/20 10/21/22 History Semaglutide [Ozempic] 1 mg SQ FR 06/11/22 10/21/22 History glipiZIDE/METFORMIN HCL 1.5 tab PO BID 06/11/22 10/21/22 History [glipiZIDE/METFORMIN HCL 5-500 mg] Lidocaine-Prilocaine Cream [Emla 1 applic TOPICAL ONCE PRN 08/08/22 10/21/22 History Cream 2.5%/2.5%] Multivitamins, Thera [Multivitamin 1 tab PO DAILY 09/27/22 10/21/22 History (formulary)] Ondansetron [Zofran] 4 mg PO Q6H PRN 09/27/22 10/21/22 History Docusate [Colace] 100 mg PO DAILY PRN 10/21/22 10/21/22 History Insulin Detemir [Levemir Flextouch] 40 unit SQ HS 10/21/22 10/21/22 History Insulin Detemir [Levemir Flextouch] 45 unit SQ DAILY 10/21/22 10/21/22 History Levofloxacin [Levaquin] 500 mg PO DAILY 10/21/22 10/21/22 History Loperamide HCl [Imodium A-D] 2 mg PO BID PRN 10/21/22 10/21/22 History OLANZapine [ZyPREXA] 2.5 mg PO DIRECTED 10/21/22 10/21/22 History Vits A and D/White Pet/Lanolin [A 1 applic TOPICAL DAILY PRN 10/21/22 10/21/22 History and D Ointment] predniSONE 100 mg PO DIRECTED 10/21/22 10/21/22 History Allergies Allergy/AdvReac Type Severity Reaction Status Date / Time adhesive tape Allergy redness Verified 10/21/22 12:21 latex Allergy skin Verified 10/21/22 12:21 redness tegaderm AdvReac redness/bli Uncoded 10/21/22 09:10 ster Physical Exam Vitals: Vital Signs Temp Pulse Pulse Resp BP BP Pulse Ox 10/22/22 08:00 98.2 F 88 16 108/52 94 L 10/22/22 04:05 98.7 F 97 20 123/62 99 10/22/22 02:05 111 H 22 10/22/22 00:10 22 93 L 10/22/22 00:00 98 F 111 H 22 126/61 87 L 10/21/22 20:00 97.6 F 107 H 20 144/61 91 L 10/21/22 18:01 97.6 F 92 18 134/60 94 L 10/21/22 17:22 97.8 F 92 18 134/60 94 L 10/21/22 16:17 80 18 112/52 97 10/21/22 15:05 98.3 F 80 18 119/60 98 10/21/22 13:15 97.9 F 90 18 128/66 98 10/21/22 12:27 87 16 112/73 98 10/21/22 10:54 98 18 101/61 99 Intake and Output 10/21/22 10/22/22 10/22/22 22:59 06:59 14:59 Intake Total 480 Balance 480 Intake: Oral 480 Other: Voiding Method Toilet Toilet # Voids 1 1 Weight 81.647 kg Results CBC & Chem 7: 10/22/22 06:21 10/22/22 06:21 Labs: Abnormal Lab Results - Last 24 Hours (Table) 10/21/22 10/21/22 10/21/22 Range/Units 09:38 09:38 09:38 RBC 2.29 L (3.80-5.40) m/uL Hgb 7.3 L (11.4-16.0) gm/dL Hct 21.3 L (34.0-46.0) % RDW 20.7 H (11.5-15.5) % Plt Count 73 L D (150-450) k/uL Lymphocytes # 0.1 L (1.0-4.8) k/uL Sodium 131 L (137-145) mmol/L Creatinine (0.52-1.04) mg/dL Glucose 148 H (74-99) mg/dL POC Glucose (mg/dL) (70-110) mg/dL Calcium 7.5 L (8.4-10.2) mg/dL Magnesium 1.1 L (1.6-2.3) mg/dL Troponin I (0.000-0.034) ng/mL C-Reactive Protein (<1.0) mg/dL Total Protein 5.3 L (6.3-8.2) g/dL Albumin 3.0 L (3.5-5.0) g/dL Urine Appearance Cloudy H (Clear) Urine Protein Trace H (Negative) Ur Leukocyte Esterase Trace H (Negative) Urine WBC 9 H (0-5) /hpf Urine Bacteria Rare H (None) /hpf Urine Mucus Many H (None) /hpf 10/21/22 10/21/22 10/21/22 Range/Units 09:38 15:37 16:49 RBC (3.80-5.40) m/uL Hgb (11.4-16.0) gm/dL Hct (34.0-46.0) % RDW (11.5-15.5) % Plt Count (150-450) k/uL Lymphocytes # (1.0-4.8) k/uL Sodium (137-145) mmol/L Creatinine (0.52-1.04) mg/dL Glucose (74-99) mg/dL POC Glucose (mg/dL) 168 H (70-110) mg/dL Calcium (8.4-10.2) mg/dL Magnesium (1.6-2.3) mg/dL Troponin I 0.500 H* 0.536 H* (0.000-0.034) ng/mL C-Reactive Protein (<1.0) mg/dL Total Protein (6.3-8.2) g/dL Albumin (3.5-5.0) g/dL Urine Appearance (Clear) Urine Protein (Negative) Ur Leukocyte Esterase (Negative) Urine WBC (0-5) /hpf Urine Bacteria (None) /hpf Urine Mucus (None) /hpf 10/21/22 10/21/22 10/22/22 Range/Units 20:11 21:42 06:04 RBC (3.80-5.40) m/uL Hgb (11.4-16.0) gm/dL Hct (34.0-46.0) % RDW (11.5-15.5) % Plt Count (150-450) k/uL Lymphocytes # (1.0-4.8) k/uL Sodium (137-145) mmol/L Creatinine (0.52-1.04) mg/dL Glucose (74-99) mg/dL POC Glucose (mg/dL) 209 H 197 H (70-110) mg/dL Calcium (8.4-10.2) mg/dL Magnesium (1.6-2.3) mg/dL Troponin I 0.315 H* (0.000-0.034) ng/mL C-Reactive Protein (<1.0) mg/dL Total Protein (6.3-8.2) g/dL Albumin (3.5-5.0) g/dL Urine Appearance (Clear) Urine Protein (Negative) Ur Leukocyte Esterase (Negative) Urine WBC (0-5) /hpf Urine Bacteria (None) /hpf Urine Mucus (None) /hpf 10/22/22 10/22/22 Range/Units 06:21 06:21 RBC 2.02 L (3.80-5.40) m/uL Hgb 6.6 L* (11.4-16.0) gm/dL Hct 19.4 L* (34.0-46.0) % RDW 21.0 H (11.5-15.5) % Plt Count 82 L (150-450) k/uL Lymphocytes # 0.1 L (1.0-4.8) k/uL Sodium 132 L (137-145) mmol/L Creatinine 0.51 L (0.52-1.04) mg/dL Glucose 181 H (74-99) mg/dL POC Glucose (mg/dL) (70-110) mg/dL Calcium 6.9 L (8.4-10.2) mg/dL Magnesium (1.6-2.3) mg/dL Troponin I (0.000-0.034) ng/mL C-Reactive Protein 9.0 H (<1.0) mg/dL Total Protein (6.3-8.2) g/dL Albumin (3.5-5.0) g/dL Urine Appearance (Clear) Urine Protein (Negative) Ur Leukocyte Esterase (Negative) Urine WBC (0-5) /hpf Urine Bacteria (None) /hpf Urine Mucus (None) /hpf Assessment and Plan Plan: 1patient presented to hospital with fever tachycardia in this patient who did have a history of lymphoma on chemotherapy last chemo has been about 2 weeks ago patient however was not neutropenic on presentation the hospital patient did have a mildly positive UA but no significant urinary symptoms did have respiratory symptoms mostly pulmonary vascular congestion reported on the chest x-ray patient abdominal soft medical examination right chest wall Mediport site is clean no evidence of any joint swelling or cellulitis. 2-we will wait for the procalcitonin and blood cultures to finalize check urine for Legionella antigen 3-continue with cefepime and Zithromax We will follow on clinical condition and cultures to further adjust medication if needed Thank you for this consultation we will follow the patient along with you Time with Patient: Greater than 30
[2022-10-23] MEDS: CEFEPIME 2 GM in SODIUM CHLORIDE 0.9% 100 ML IVPB SCH ×3 (04:03→19:45)
[2022-10-23] MEDS ORDERED: IPRATROPIUM-ALBUTEROL 3 ML NEB INHALATION PRN (05:50)
[2022-10-23 06:06] LABS: Glucose,Whole Blood 185 mg/dL (70-110)
[2022-10-23] MEDS: carvediloL 12.5 MG TAB PO SCH ×2 (06:07→17:30)
[2022-10-23] MEDS: INSULIN ASPART (NovoLOG) 100 UNIT/ML VIAL SQ SCH ×4 (06:42→21:45)
--- NOTE | 2022-10-23 06:57 | XR ---
EXAMINATION TYPE: XR chest 1V portable DATE OF EXAM: 10/23/2022 6:33 AM COMPARISON: Chest radiographs from 10/21/2022 TECHNIQUE: XR chest 1V portable Portable AP radiograph of the chest. CLINICAL INDICATION:Female, 77 years old with history of new onset wheezing; FINDINGS: Lungs/Pleura: There is no evidence of pleural effusion, or pneumothorax. Prominent interstitial opaci ties. No focal consolidation. Elevation of the right hemidiaphragm redemonstrated. Chronic senescent parenchymal change. Heart/mediastinum: Cardiomediastinal silhouette is unremarkable. Musculoskeletal: No acute osseous pathology. Right chest wall Ubihdt-m-Kodm tip terminating near the brachiocephalic /superior vena cava confluenc e in unchanged position. IMPRESSION: Prominent interstitial opacities which could represent pulmonary vascular congestion versus atypical pneumonia.
[2022-10-23] MEDS: IPRATROPIUM-ALBUTEROL 3 ML NEB INHALATION SCH ×4 (08:00→21:50)
[2022-10-23 08:11] LABS: Anisocytosis Moderate; Basophils % (A) 0 %; Eosinophils % (A) 0 %; HCT 23.2 % (34.0-46.0); Lymphocytes # (A) 0.1 k/uL (1.0-4.8); Lymphocytes % (A) 1 %; MCH 31.8 pg (25.0-35.0); MCHC 34.7 g/dL (31.0-37.0); MCV 91.8 fL (80.0-100.0); Macrocytosis Slight; Mean Platelet Volume 8.6; Monocytes # (A) 0.3 k/uL (0-1.0); Monocytes % (A) 5 %; Neutrophils # (A) 5.8 k/uL (1.3-7.7); Neutrophils % (A) 91 %; Platelet Count 107 k/uL (150-450); Poikilocytosis Moderate; RBC 2.53 m/uL (3.80-5.40); RDW 20.8 % (11.5-15.5); WBC 6.4 k/uL (3.8-10.6)
[2022-10-23 08:14] LABS: HGB 8.1 gm/dL (11.4-16.0)
[2022-10-23 08:47] LABS: NT-Pro-B-Type Natriuretic Pept 2130 pg/mL
[2022-10-23 08:50] LABS: African American GFR (CKD) >90 (>60 ml/min/1.73 sqM); Anion Gap 8 mmol/L; Blood Urea Nitrogen 10 mg/dL (7-17); Carbon Dioxide 27 mmol/L (22-30); Chloride 98 mmol/L (98-107); Glucose 165 mg/dL (74-99); Non-African American GFR(CKD) >90 (>60 ml/min/1.73 sqM); Sodium 133 mmol/L (137-145)
[2022-10-23] MEDS ORDERED: FUROSEMIDE 10 MG/ML 4 ML VIAL IV SCH (09:00)
[2022-10-23] MEDS: MULTIVITAMINS, THERA 1 EACH TAB PO SCH (09:15)
[2022-10-23] MEDS: ASPIRIN 81 MG PO SCH (09:15)
[2022-10-23] MEDS: PANTOPRAZOLE 40 MG TABLET PO SCH (09:15)
[2022-10-23] MEDS: FUROSEMIDE 10 MG/ML 4 ML VIAL IV SCH (09:15)
[2022-10-23] MEDS: ISOSORBIDE MONONITRATE ER 30 MG TAB.ER.24H PO SCH (09:16)
[2022-10-23] MEDS: hydrALAZINE HCL 50 MG TAB PO SCH ×2 (09:16→19:45)
[2022-10-23] MEDS: AZITHROMYCIN 500 MG in SODIUM CHLORIDE 0.9% 250 ML IVPB SCH (09:16)
--- NOTE | 2022-10-23 10:27 | CA ---
Transthoracic Echo Report Name: Jessica Veras Age: 77 Gender: F : 1945 Exam Date: 10/22/2022 09:39 Exam Location: [facility] Ht (in): 64 Wt (lb): 180 Ordering Physician: Charissa Nesbitt Attending/Referring Phys: [id number], Delicia Mixed Animal Veterinarian Nicolasa See [facility] Procedure CPT: Indications: lv function, elevated trops Cardiac Hx: Technical Quality: Fair Contrast 1: Total Dose (mL): Contrast 2: Total Dose (mL): MEASUREMENTS (Male / Female) Normal Values 2D ECHO LV Diastolic Diameter PLAX 4.4 cm 4.2 - 5.9 / 3.9 - 5.3 cm LV Systolic Diameter PLAX 3.3 cm IVS Diastolic Thickness 0.9 cm 0.6 - 1.0 / 0.6 - 0.9 cm LVPW Diastolic Thickness 0.9 cm 0.6 - 1.0 / 0.6 - 0.9 cm LV Relative Wall Thickness 0.4 DOPPLER Mitral E Point Velocity 124.7 cm/s Mitral A Point Velocity 83.1 cm/s Mitral E to A Ratio 1.5 MV Deceleration Time 198.3 ms LV E' Lateral Velocity 9.8 cm/s Mitral E to LV E' Lateral Ratio 12.7 LV E' Septal Velocity 6.0 cm/s Mitral E to LV E' Septal Ratio 20.8 TR Peak Velocity 239.5 cm/s TR Peak Gradient 22.9 mmHg Right Atrial Pressure 15.0 mmHg Pulmonary Artery Systolic Pressu 37.9 mmHg Right Ventricular Systolic Press 37.9 mmHg FINDINGS Left Ventricle Normal Left ventricular size, wall thickness, systolic function with no obvious regional wall motion abnormalities. Left ventricular ejection fraction is estimated at 55%. Right Ventricle Mild pulmonary hypertension. Right Atrium Left Atrium Mitral Valve Structurally normal mitral valve. Mild Mitral annular calcification. Trace mitral regurgitation. Aortic Valve Tricuspid Valve Structurally normal tricuspid valve. Mild tricuspid regurgitation. Pulmonic Valve Pericardium No pericardial effusion. Aorta CONCLUSIONS Normal LV size and systolic function. Mild mitral and tricuspid regurgitation. No pulmonary hypertension. No pericardial effusion Previewed by: Dr. Everette Mcgregor MD (Electronically Signed) Final Date: 23 October 2022 10:26
[2022-10-23 11:29] LABS: Glucose,Whole Blood 375 mg/dL (70-110)
--- NOTE | 2022-10-23 11:40 | P.PN ---
Subjective This is a pleasant 8 years old male with past medical history of hypertension, diabetes mellitus, hyperlipidemia, nicotine dependence, history of CVA/TIA, History of coronary artery disease status post CABG. Glass Forming Engineer: Dr. Mcgregor. PCP is Dr. Wilson. He is status post bilateral endarterectomy with Dr. briones, last one was about 2 years ago. Patient presents because of right-sided weakness and numbness. Patient says that he presents because of numbness and tingling in his right side. He had a 1-2 episodes about 2 weeks ago of tingling on the right side that lasted about 15 minutes Since last Thursday about 3 days ago his been having numbness in house for right side from his top of the body till his feet he described it as a discomfort in his body in half side of the chest on the right side of the belly is not compared to the left side. He denies any other symptom, no chest pain dyspnea cough and GI or urinary complaints He smokes about 1 pack per week and he was counseled to quit he agrees but he declines nicotine patch alcohol occasionally and no illicit drugs. Vitals stable, heart rate low-normal go down to 50s during sleep. Unremarkable CBC, INR, BMP, liver enzymes, troponin and creatinine kinase CT of the brain, no acute process. CTA of the head and neck: No acute abnormality noticed on both areas Chest x-ray: No acute process EKG: Sinus bradycardia at [address]-T changes on the lateral and anterior chest limits however patient has T-wave inversion in the inferior right In the emergency room patient was started on aspirin and he was admitted within urology team consult 10/22/2022 Patient clinically looks the same with no new complaints she just feels tired and lethargic and embedded. Denies respiratory or urinary or GI symptoms. No more fever since admission. CALCITONIN only mildly elevated as well as COPD, currently on cefepime and Zithromax although pulmonary findings on the chest x-ray is suspicious for fluid overload. ProBNP is patent 3150 Currently she is on normal saline 75 mL/h (especially patient with poor appetite). To treat her Her sepsis, we don't Lasix 40 mg daily. Most likely patient has developed systolic CHF with ejection fraction 50-55% based on echocardiogram done already earlier this month Hemoglobin dropped to 6.6 today and she received 1 unit of blood transfusion 10/23/2022 yesterday overnight she developed respiratory distress and chest x-ray showing bilateral pulmonary infiltrates suspicious for fluid overload and CHF This is most likely secondary to the IV for which she was receiving 75 mm/h of normal saline on the top of 1 unit of blood transfusion proceeded because of his low hemoglobin 6.6 yesterday. Therefore IV fluid was stopped. This morning I saw her she was working from the bathroom back to her room, she wasn't in respiratory distress, she had no or very mild exertional dyspnea. She was not coughing and denies any other respiratory symptoms or chest pain. Patient already was placed on IV Lasix 40 mg daily, we are going to give one extra dose tonight, discussed with the bedside nurse and she agrees. ProBNP today is 2130. She's continued on cefepime and Zithromax, urine culture is negative, blood culture so pulmonary, no stertor sample sent. Patient denies diarrhea, denies rash, denies any other new symptoms, denies chest pain abdominal pain or pain anywhere else. Actually today patient looks stronger than when I first saw her on admission hemoglobin up to 8.8 today Active Medications Generic Name Dose Route Start Last Admin Trade Name Freq PRN Reason Stop Dose Admin Acetaminophen 650 mg 10/21/22 13:54 Acetaminophen Tab 325 Mg Tab PO Q6HR PRN Mild Pain or Fever > 100.5 Albuterol/Ipratropium 3 ml 10/23/22 08:00 10/23/22 08:00 Ipratropium-Albuterol 3 Ml Neb INHALATION Not Given RT-QID SIERRA Albuterol/Ipratropium 3 ml 10/23/22 05:50 Ipratropium-Albuterol 3 Ml Neb INHALATION RT-Q2H PRN Shortness Of Breath Or Wheezing Aspirin 81 mg 10/22/22 09:00 10/23/22 09:15 Aspirin 81 Mg PO 81 mg DAILY SIERRA Administration Atorvastatin Calcium 40 mg 10/21/22 21:00 10/22/22 21:04 Atorvastatin 40 Mg Tab PO 40 mg HS SIERRA Administration Carvedilol 12.5 mg 10/21/22 19:00 10/23/22 06:07 Carvedilol 12.5 Mg Tab PO Not Given AC-BID SIERRA Dextrose/Water 25 ml 10/22/22 06:15 Dextrose 50% Syringe 50 Ml IVP PER PROTOCOL PRN Hypoglycemia Protocol Dextrose/Water 50 ml 10/22/22 06:15 Dextrose 50% Syringe 50 Ml IVP PER PROTOCOL PRN Hypoglycemia Protocol Docusate Sodium 100 mg 10/21/22 18:44 Docusate 100 Mg Cap PO DAILY PRN Constipation Furosemide 40 mg 10/23/22 09:00 10/23/22 09:15 Furosemide 10 Mg/Ml 4 Ml Vial IV 40 mg DAILY SIERRA Administration Furosemide 40 mg 10/23/22 21:00 Furosemide 10 Mg/Ml 4 Ml Vial IV 10/23/22 21:01 ONCE ONE Hydralazine HCl 50 mg 10/21/22 21:00 10/23/22 09:16 Hydralazine Hcl 50 Mg Tab PO 50 mg BID SIERRA Administration Cefepime HCl 2 gm/ Sodium 100 mls @ 25 mls/hr 10/21/22 20:00 10/23/22 04:03 Chloride IVPB 25 mls/hr Q8H SIERRA Administration Protocol Azithromycin 500 mg/ Sodium 250 mls @ 250 mls/hr 10/22/22 09:00 10/23/22 09:16 Chloride IVPB 10/24/22 09:59 250 mls/hr DAILY SIERRA Administration Protocol Insulin Aspart 0 unit 10/22/22 07:30 10/23/22 06:42 Insulin Aspart (Novolog) 100 Unit/Ml Vial SQ 2 unit ACHS SIERRA Administration Protocol Isosorbide Mononitrate 30 mg 10/22/22 09:00 10/23/22 09:16 Isosorbide Mononitrate Er 30 Mg Tab.Er.24h PO 30 mg DAILY SIERRA Administration Loperamide HCl 2 mg 10/21/22 18:44 Loperamide 2 Mg Cap PO BID PRN Diarrhea Multivitamins 1 each 10/22/22 09:00 10/23/22 09:15 Multivitamins, Thera 1 Each Tab PO 1 each DAILY SIERRA Administration Naloxone HCl 0.2 mg 10/21/22 13:54 Naloxone 0.4 Mg/Ml 1 Ml Vial IV Q2M PRN Opioid Reversal Olanzapine 2.5 mg 10/30/22 09:00 Olanzapine 2.5 Mg Tab PO 11/05/22 09:01 DAILY SIERRA Pantoprazole Sodium 40 mg 10/22/22 09:00 10/23/22 09:15 Pantoprazole 40 Mg Tablet PO 40 mg DAILY SIERRA Administration Objective - Vital Signs Vital signs: Vital Signs Temp 98.2 F 10/23/22 08:05 Pulse 88 10/23/22 08:05 Resp 18 10/23/22 08:05 BP 123/60 10/23/22 08:05 Pulse Ox 97 10/23/22 08:05 FiO2 Intake & Output 10/22/22 10/23/22 10/23/22 18:59 06:59 18:59 Intake Total 900 118 Output Total 350 Balance 900 -350 118 Weight 77 kg Intake: Oral 590 118 Blood Product 310 Rc As-1 Unit 310 [id number] Output: Urine 350 Other: Voiding Method Toilet Toilet # Voids 1 3 1 # Bowel Movements 1 1 - Exam -GENERAL: The patient is alert and oriented x3, not in any acute distress. Well developed, well nourished. Generally tired and weak. HEENT: Pupils are round and equally reacting to light. EOMI. No scleral icterus. No conjunctival pallor. Normocephalic, atraumatic. No pharyngeal erythema. No thyromegaly. CARDIOVASCULAR: S1 and S2 present. No murmurs, rubs, or gallops. PULMONARY: Chest is clear to auscultation, no wheezing , no crackles. ABDOMEN: Soft, nontender, nondistended, normoactive bowel sounds. No palpable organomegaly. MUSCULOSKELETAL: No joint swelling or deformity. EXTREMITIES: No cyanosis, clubbing, or pedal edema. NEUROLOGICAL: Gross neurological examination did not reveal any focal deficits. SKIN: No rashes. no petechiae. - Labs CBC & Chem 7: 10/23/22 06:58 10/23/22 06:58 Labs: Abnormal Lab Results - Last 24 Hours (Table) 10/22/22 10/22/22 10/22/22 Range/Units 11:59 16:10 19:50 RBC (3.80-5.40) m/uL Hgb (11.4-16.0) gm/dL Hct (34.0-46.0) % RDW (11.5-15.5) % Plt Count (150-450) k/uL Lymphocytes # (1.0-4.8) k/uL Sodium (137-145) mmol/L Potassium (3.5-5.1) mmol/L Creatinine (0.52-1.04) mg/dL Glucose (74-99) mg/dL POC Glucose (mg/dL) 254 H 190 H (70-110) mg/dL Calcium (8.4-10.2) mg/dL Crossmatch See Detail 10/23/22 10/23/22 10/23/22 Range/Units 06:04 06:58 06:58 RBC 2.53 L (3.80-5.40) m/uL Hgb 8.1 L D (11.4-16.0) gm/dL Hct 23.2 L (34.0-46.0) % RDW 20.8 H (11.5-15.5) % Plt Count 107 L (150-450) k/uL Lymphocytes # 0.1 L (1.0-4.8) k/uL Sodium 133 L (137-145) mmol/L Potassium 3.0 L (3.5-5.1) mmol/L Creatinine 0.47 L (0.52-1.04) mg/dL Glucose 165 H (74-99) mg/dL POC Glucose (mg/dL) 185 H (70-110) mg/dL Calcium 7.0 L (8.4-10.2) mg/dL Crossmatch 10/23/22 Range/Units 11:27 RBC (3.80-5.40) m/uL Hgb (11.4-16.0) gm/dL Hct (34.0-46.0) % RDW (11.5-15.5) % Plt Count (150-450) k/uL Lymphocytes # (1.0-4.8) k/uL Sodium (137-145) mmol/L Potassium (3.5-5.1) mmol/L Creatinine (0.52-1.04) mg/dL Glucose (74-99) mg/dL POC Glucose (mg/dL) 375 H (70-110) mg/dL Calcium (8.4-10.2) mg/dL Crossmatch Microbiology - Last 24 Hours (Table) 10/21/22 20:20 Urine Culture - Final Urine,Clean Catch 10/21/22 14:15 Blood Culture - Preliminary Blood 10/21/22 09:38 Blood Culture - Preliminary Blood 10/21/22 09:38 Blood Culture - Preliminary Blood Assessment and Plan Assessment: Febrile illness in immunocompromised patient Lymphoma undergoing chemotherapy severe bicytopenia and anemia secondary to her malignant disease and therapy Acute diastolic CHF with ejection fraction 50-55% Diabetes mellitus Hypertension Hyperlipidemia History of coronary artery disease status post stent Obesity with BMI of 30.9 Plan: Continue with IV Lasix, Demadex her dose today. Hold IV fluids We will start cefepime, Zithromax Follow-up blood culture and panculture Status post one unit of blood transfusion Infectious disease consult Hematology oncology team consult Labs and medication were reviewed.. Continue same treatment. Continue with symptomatic treatment. Resume home medication. Monitor labs and vitals. DVT and GI prophylaxis. Further recommendations as per clinical course of the patient DVT prophylaxis: Subcutaneous heparin GI Prophylaxis: ppi Prognosis is guarded,
[2022-10-23 12:27] VITALS: BMI 29.1
--- NOTE | 2022-10-23 13:18 | P.PN ---
Subjective HISTORY OF PRESENT ILLNESS: This is a 77-year-old female with a past medical history significant for lymphoma currently undergoing chemotherapy, coronary artery disease with previous stenting, hypertension, hyperlipidemia, and diabetes. Patient follows in the office with Dr. Dr. Wolfe. We have been asked to see the patient in consultation for abnormal troponins. Patient examined at the bedside. Patient presented to the emergency room with a chief complaint of a fever. Patient states that she receives chemotherapy every 3 weeks and was next scheduled to have chemotherapy on October 30. She also reports she has been feeling extremely weak over the past couple days. She denies having any chest pain or pressure. She reports mild shortness of breath which she states is at her baseline. Vital signs are stable. Telemetry this morning revealed mild sinus tachycardia with a heart rate between [id number]. * EKG reveals sinus tachycardia with right bundle branch block. No signs of acute ischemia. * Chest xray cardiomegaly and mild pulmonary vascular congestion. * Laboratory data: WBC 4.4. Hemoglobin 6.6. Platelet count 82. Sodium 132. Potassium 3.5. BUN 11. Creatinine 0.51. Troponin 0.500. 0.536. 0.315. * Current home cardiac medications include aspirin 81 mg daily, Lipitor 40 mg at night, Imdur 30 mg daily, carvedilol 12.5 mg twice a day, hydralazine 50 mg twice a day * Most recent echocardiogram obtained on 09/26/2022 revealed ejection fraction 50-55% with mild aortic stenosis * Cardiac catheterization history: April 2020 revealing intermediate to severe disease of the ostial circumflex. Patent stent to the LAD. 10/23/2022 Patient examined this morning at the bedside. Patient denies chest pain or pressure. She denies shortness of breath. Vital signs are stable. She is af ebrile this morning. Echocardiogram completed revealing ejection fraction 55% with mild pulmonary hypertension, trace mitral regurgitation, and mild tricuspid regurgitation PHYSICAL EXAM: VITAL SIGNS: Reviewed. GENERAL: Well-developed in no acute distress. HEENT: Head is normocephalic. Pupils are equal, round. Sclerae anicteric. Mucous membranes of the mouth are moist. Neck supple. No JVD or thyromegaly LUNGS: Respirations even and unlabored. Lungs essentially clear to auscultation bilaterally. HEART: Regular rate and rhythm. S1 and S2 heard. ABDOMEN: Soft. Nondistended. Nontender. EXTREMITIES: Normal range of motion. No clubbing or cyanosis. Peripheral pulses intact. No lower extremity edema NEUROLOGIC: Awake and alert. Oriented x 3. ASSESSMENT: Fever in immunocompromised patient Abnormal troponins, suspect secondary to infectious process, no evidence of acute coronary syndrome Lymphoma, currently undergoing chemotherapy Coronary artery disease with previous stenting Hypertension Hyperlipidemia Diabetes PLAN: Continue current cardiac medications Patient is stable from a cardiac standpoint We will sign off. Please reconsult if needed. Nurse practitioner note has been reviewed by physician. Signing provider agrees with the documented findings, assessment, and plan of care. Objective - Vital Signs Vital signs: Vital Signs Temp 98.2 F 10/23/22 08:05 Pulse 84 10/23/22 11:53 Resp 16 10/23/22 11:53 BP 108/59 10/23/22 11:25 Pulse Ox 98 10/23/22 11:25 FiO2 Intake & Output 10/22/22 10/23/22 10/23/22 18:59 06:59 18:59 Intake Total 900 236 Output Total 350 Balance 900 -350 236 Weight 77 kg 77 kg Intake: Oral 590 236 Blood Product 310 Rc As-1 Unit 310 [id number] Output: Urine 350 Other: Voiding Method Toilet Toilet # Voids 1 3 1 # Bowel Movements 1 1 - Labs CBC & Chem 7: 10/23/22 06:58 10/23/22 06:58 Labs: Abnormal Lab Results - Last 24 Hours (Table) 10/22/22 10/22/22 10/22/22 Range/Units 11:59 16:10 19:50 RBC (3.80-5.40) m/uL Hgb (11.4-16.0) gm/dL Hct (34.0-46.0) % RDW (11.5-15.5) % Plt Count (150-450) k/uL Lymphocytes # (1.0-4.8) k/uL Sodium (137-145) mmol/L Potassium (3.5-5.1) mmol/L Creatinine (0.52-1.04) mg/dL Glucose (74-99) mg/dL POC Glucose (mg/dL) 254 H 190 H (70-110) mg/dL Calcium (8.4-10.2) mg/dL Crossmatch See Detail 10/23/22 10/23/22 10/23/22 Range/Units 06:04 06:58 06:58 RBC 2.53 L (3.80-5.40) m/uL Hgb 8.1 L D (11.4-16.0) gm/dL Hct 23.2 L (34.0-46.0) % RDW 20.8 H (11.5-15.5) % Plt Count 107 L (150-450) k/uL Lymphocytes # 0.1 L (1.0-4.8) k/uL Sodium 133 L (137-145) mmol/L Potassium 3.0 L (3.5-5.1) mmol/L Creatinine 0.47 L (0.52-1.04) mg/dL Glucose 165 H (74-99) mg/dL POC Glucose (mg/dL) 185 H (70-110) mg/dL Calcium 7.0 L (8.4-10.2) mg/dL Crossmatch 10/23/22 Range/Units 11:27 RBC (3.80-5.40) m/uL Hgb (11.4-16.0) gm/dL Hct (34.0-46.0) % RDW (11.5-15.5) % Plt Count (150-450) k/uL Lymphocytes # (1.0-4.8) k/uL Sodium (137-145) mmol/L Potassium (3.5-5.1) mmol/L Creatinine (0.52-1.04) mg/dL Glucose (74-99) mg/dL POC Glucose (mg/dL) 375 H (70-110) mg/dL Calcium (8.4-10.2) mg/dL Crossmatch Microbiology - Last 24 Hours (Table) 10/21/22 20:20 Urine Culture - Final Urine,Clean Catch 10/21/22 14:15 Blood Culture - Preliminary Blood 10/21/22 09:38 Blood Culture - Preliminary Blood 10/21/22 09:38 Blood Culture - Preliminary Blood
[2022-10-23 16:29] LABS: Glucose,Whole Blood 311 mg/dL (70-110)
--- NOTE | 2022-10-23 16:34 | P.PN ---
Subjective Progress Note Date: 10/23/22 Principal diagnosis: Fever, UTI In follow-up today patient reports feeling better than on admit, her reports that he she is much more alert. She is up in the chair, denies any fevers today, unusual pain, tolerating oral intake without nausea or vomiting, appetite is overall poor, no respiratory symptoms, unusual cough or sputum production, abdominal pain, acute changes in bowel habits, no urinary symptoms, slight swelling in the lower extremities. Objective - Vital Signs Vital signs: Vital Signs Temp 98.2 F 10/23/22 08:05 Pulse 82 10/23/22 16:16 Resp 18 10/23/22 16:16 BP 108/59 10/23/22 11:25 Pulse Ox 98 10/23/22 11:25 FiO2 Intake & Output 10/22/22 10/23/22 10/23/22 18:59 06:59 18:59 Intake Total 900 236 Output Total 350 Balance 900 -350 236 Weight 77 kg 77 kg Intake: Oral 590 236 Blood Product 310 Rc As-1 Unit 310 [id number] Output: Urine 350 Other: Voiding Method Toilet Toilet # Voids 1 3 1 # Bowel Movements 1 1 - Constitutional General appearance: Present: average body habitus, cooperative, no acute distress - EENT Eyes: Present: anicteric sclerae, EOMI ENT: Present: hearing grossly normal, normal oropharynx - Respiratory Respiratory: bilateral: CTA - Cardiovascular Rhythm: regular Heart sounds: normal: S1, S2 Abnormal Heart Sounds: Present: systolic murmur. Absent: diastolic murmur, rub, S3 Gallop, S4 Gallop, click, other - Peripheral edema leg Peripheral Edema: bilateral: None - Gastrointestinal General gastrointestinal: Present: normal bowel sounds, soft - Neurologic Neurologic: Present: CNII-XII intact - Musculoskeletal Musculoskeletal: Present: generalized weakness, strength equal bilaterally - Psychiatric Psychiatric: Present: A&O x's 3, appropriate affect, intact judgment & insight - Labs CBC & Chem 7: 10/23/22 06:58 10/23/22 06:58 Labs: Abnormal Lab Results - Last 24 Hours (Table) 10/22/22 10/22/22 10/23/22 Range/Units 11:59 19:50 06:04 RBC (3.80-5.40) m/uL Hgb (11.4-16.0) gm/dL Hct (34.0-46.0) % RDW (11.5-15.5) % Plt Count (150-450) k/uL Lymphocytes # (1.0-4.8) k/uL Sodium (137-145) mmol/L Potassium (3.5-5.1) mmol/L Creatinine (0.52-1.04) mg/dL Glucose (74-99) mg/dL POC Glucose (mg/dL) 190 H 185 H (70-110) mg/dL Calcium (8.4-10.2) mg/dL Crossmatch See Detail 10/23/22 10/23/22 10/23/22 Range/Units 06:58 06:58 11:27 RBC 2.53 L (3.80-5.40) m/uL Hgb 8.1 L D (11.4-16.0) gm/dL Hct 23.2 L (34.0-46.0) % RDW 20.8 H (11.5-15.5) % Plt Count 107 L (150-450) k/uL Lymphocytes # 0.1 L (1.0-4.8) k/uL Sodium 133 L (137-145) mmol/L Potassium 3.0 L (3.5-5.1) mmol/L Creatinine 0.47 L (0.52-1.04) mg/dL Glucose 165 H (74-99) mg/dL POC Glucose (mg/dL) 375 H (70-110) mg/dL Calcium 7.0 L (8.4-10.2) mg/dL Crossmatch Microbiology - Last 24 Hours (Table) 10/21/22 20:20 Urine Culture - Final Urine,Clean Catch 10/21/22 14:15 Blood Culture - Preliminary Blood 10/21/22 09:38 Blood Culture - Preliminary Blood 10/21/22 09:38 Blood Culture - Preliminary Blood - Imaging and Cardiology Echo report reviewed. LVEF reported at 55% Assessment and Plan (1) Fever Current Visit: Yes Status: Acute Priority: High Code(s): R50.9 - FEVER, UNSPECIFIED SNOMED Code(s): 502616498 (2) Pancytopenia due to antineoplastic chemotherapy Current Visit: Yes Status: Acute Priority: High Code(s): D61.810 - ANTINEOPLASTIC CHEMOTHERAPY INDUCED PANCYTOPENIA; T45.1X5A - ADVERSE EFFECT OF ANTINEOPLASTIC AND IMMUNOSUP DRUGS, INIT SNOMED Code(s): 205155890981186 (3) NHL (non-Hodgkin's lymphoma) Current Visit: No Status: Acute Priority: Medium Code(s): C85.90 - NON- HODGKIN LYMPHOMA, UNSPECIFIED, UNSPECIFIED SITE SNOMED Code(s): 828295568 Plan: Fever -Pancultures pending, Preliminaries are not suspicious -ID consulted -Empiric antibiotics Continue -No further fever since admission Pancytopenia from chemotherapy -WBC and ANC normal. Patient did receive G-CSF After treatment -Anemia, hemoglobin 8.1 after 1 unit of packed red blood cells. Transfuse for hemoglobin less than 7 -Platelets 107,000. Plt adequate for DVT prophylaxis-Ordered SCDs. She is okay to continue her daily baby aspirin at this time. Non-Hodgkin's lymphoma -Patient has completed 4 of 6 planned cycles of treatment. She received one R [facility], 3 R-[place]-[facility] -Patient is had moderate/severe hematological toxicities cycle 3 and 4. She has been hospitalized after cycles 3 and 4. -Patient will follow-up with her primary Oncologist prior to resuming treatment to discuss goals, possible dose adjustments or regimen changes. Patient and are in agreement with plan.
[2022-10-23] MEDS ORDERED: Potassium Replacement Protocol 1 EACH MISC MISCELLANE PRN (18:06)
[2022-10-23] MEDS: POTASSIUM CHLORIDE ER 20 MEQ TAB.ER PO SCH ×4 (18:22→21:45)
[2022-10-23] MEDS: ATORVASTATIN 40 MG TAB PO SCH (19:45)
[2022-10-23] MEDS ORDERED: FUROSEMIDE 10 MG/ML 4 ML VIAL IV ONE (21:00)
[2022-10-23] MEDS ORDERED: INSULIN DETEMIR (LEVEMIR) 100 UNIT/ML SYR SQ SCH (21:00)
[2022-10-23 21:01] LABS: Glucose,Whole Blood 206 mg/dL (70-110)
[2022-10-24] MEDS: CEFEPIME 2 GM in SODIUM CHLORIDE 0.9% 100 ML IVPB SCH ×2 (04:30→11:28)
[2022-10-24 06:23] LABS: Glucose,Whole Blood 165 mg/dL (70-110)
[2022-10-24] MEDS: INSULIN ASPART (NovoLOG) 100 UNIT/ML VIAL SQ SCH ×3 (06:28→15:43)
[2022-10-24] MEDS: carvediloL 12.5 MG TAB PO SCH ×2 (06:28→15:43)
[2022-10-24 07:40] LABS: Anisocytosis Moderate; Basophils % (A) 0 %; Eosinophils % (A) 0 %; HGB 8.4 gm/dL (11.4-16.0); Lymphocytes # (A) 0.1 k/uL (1.0-4.8); Lymphocytes % (A) 2 %; MCH 32.7 pg (25.0-35.0); MCHC 34.9 g/dL (31.0-37.0); MCV 93.5 fL (80.0-100.0); Macrocytosis Slight; Mean Platelet Volume 9.2; Monocytes # (A) 0.4 k/uL (0-1.0); Monocytes % (A) 7 %; Neutrophils # (A) 5.4 k/uL (1.3-7.7); Neutrophils % (A) 90 %; Platelet Count 133 k/uL (150-450); Poikilocytosis Slight; RBC 2.56 m/uL (3.80-5.40); RDW 20.5 % (11.5-15.5)
--- NOTE | 2022-10-24 08:02 | P.PN ---
Subjective Progress Note Date: 10/23/22 Principal diagnosis: Fever and possible pneumonia Patient is a 77-year-old female with a past medical history significant for lymphoma for the patient is currently on chemotherapy last chemo on 10/09/2022 patient also history of diabetes hypertension hyperlipidemia prese nting to the hospital to the hospital with weakness patient was noticed to be febrile and concern for possible pneumonia. On today's evaluation that is 10/23/2022, the patient is afebrile patient is b reathing comfortably and is currently on 3 L nasal cannula oxygen, patient denies having any chest pain patient did have mild cough not bringing up any sputum Romero 70 nausea vomiting no abdominal pain and no diarrhea Objective - Vital Signs Vital signs: Vital Signs Temp 98.2 F 10/23/22 08:05 Pulse 84 10/23/22 11:53 Resp 16 10/23/22 11:53 BP 108/59 10/23/22 11:25 Pulse Ox 98 10/23/22 11:25 FiO2 Intake & Output 10/22/22 10/23/22 10/23/22 18:59 06:59 18:59 Intake Total 900 118 Output Total 350 Balance 900 -350 118 Weight 77 kg Intake: Oral 590 118 Blood Product 310 Rc As-1 Unit 310 [id number] Output: Urine 350 Other: Voiding Method Toilet Toilet # Voids 1 3 1 # Bowel Movements 1 1 - Exam GENERAL DESCRIPTION: Elderly female up in the chair in no distress RESPIRATORY SYSTEM: Unlabored breathing , decreased breath sounds at bases HEART: S1 S2 regular rate and rhythm ,no loud murmurs ABDOMEN: Soft , no tenderness EXTREMITIES: No edema feet - Labs CBC & Chem 7: 10/24/22 07:27 10/23/22 06:58 Labs: Abnormal Lab Results - Last 24 Hours (Table) 10/22/22 10/22/22 10/22/22 Range/Units 11:59 16:10 19:50 RBC (3.80-5.40) m/uL Hgb (11.4-16.0) gm/dL Hct (34.0-46.0) % RDW (11.5-15.5) % Plt Count (150-450) k/uL Lymphocytes # (1.0-4.8) k/uL Sodium (137-145) mmol/L Potassium (3.5-5.1) mmol/L Creatinine (0.52-1.04) mg/dL Glucose (74-99) mg/dL POC Glucose (mg/dL) 254 H 190 H (70-110) mg/dL Calcium (8.4-10.2) mg/dL Crossmatch See Detail 10/23/22 10/23/22 10/23/22 Range/Units 06:04 06:58 06:58 RBC 2.53 L (3.80-5.40) m/uL Hgb 8.1 L D (11.4-16.0) gm/dL Hct 23.2 L (34.0-46.0) % RDW 20.8 H (11.5-15.5) % Plt Count 107 L (150-450) k/uL Lymphocytes # 0.1 L (1.0-4.8) k/uL Sodium 133 L (137-145) mmol/L Potassium 3.0 L (3.5-5.1) mmol/L Creatinine 0.47 L (0.52-1.04) mg/dL Glucose 165 H (74-99) mg/dL POC Glucose (mg/dL) 185 H (70-110) mg/dL Calcium 7.0 L (8.4-10.2) mg/dL Crossmatch 10/23/22 Range/Units 11:27 RBC (3.80-5.40) m/uL Hgb (11.4-16.0) gm/dL Hct (34.0-46.0) % RDW (11.5-15.5) % Plt Count (150-450) k/uL Lymphocytes # (1.0-4.8) k/uL Sodium (137-145) mmol/L Potassium (3.5-5.1) mmol/L Creatinine (0.52-1.04) mg/dL Glucose (74-99) mg/dL POC Glucose (mg/dL) 375 H (70-110) mg/dL Calcium (8.4-10.2) mg/dL Crossmatch Microbiology - Last 24 Hours (Table) 10/21/22 20:20 Urine Culture - Final Urine,Clean Catch 10/21/22 14:15 Blood Culture - Preliminary Blood 10/21/22 09:38 Blood Culture - Preliminary Blood 10/21/22 09:38 Blood Culture - Preliminary Blood Assessment and Plan (1) Pneumonia Current Visit: Yes Status: Acute Code(s): J18.9 - PNEUMONIA, UNSPECIFIED ORGANISM SNOMED Code(s): 250840029 (2) Fever Current Visit: Yes Status: Acute Priority: High Code(s): R50.9 - FEVER, UNSPECIFIED SNOMED Code(s): 216023391 Plan: 1patient presented to hospital with fever tachycardia in this patient who did have a history of lymphoma on chemotherapy last chemo has been about 2 weeks ago patient however was not neutropenic on presentation the hospital patient did have a mildly positive UA but no significant urinary symptoms did have respiratory symptoms mostly pulmonary vascular congestion reported on the chest x-ray patient abdominal soft medical examination right chest wall Mediport site is clean no evidence of any joint swelling or cellulitis. 2-Patient did have mild elevated procalcitonin urine for Legionella antigen is negative blood cultures currently pending. 3patient seem to have shown clinical improvement and we will continue patient on cefepime and Zithromax while waiting for the culture to finalize
[2022-10-24 08:14] LABS: African American GFR (CKD) >90 (>60 ml/min/1.73 sqM); Anion Gap 6 mmol/L; Blood Urea Nitrogen 9 mg/dL (7-17); Calcium 7.1 mg/dL (8.4-10.2); Carbon Dioxide 31 mmol/L (22-30); Chloride 98 mmol/L (98-107); Glucose 142 mg/dL (74-99); Magnesium 1.4 mg/dL (1.6-2.3); Non-African American GFR(CKD) >90 (>60 ml/min/1.73 sqM); Potassium 3.5 mmol/L (3.5-5.1); Sodium 135 mmol/L (137-145)
[2022-10-24] MEDS ORDERED: Magnesium Replacement Protocol 1 EACH MISC MISCELLANE PRN (08:35)
[2022-10-24] MEDS: AZITHROMYCIN 500 MG in SODIUM CHLORIDE 0.9% 250 ML IVPB SCH (08:41)
[2022-10-24] MEDS: FUROSEMIDE 10 MG/ML 4 ML VIAL IV SCH (08:43)
[2022-10-24] MEDS: ISOSORBIDE MONONITRATE ER 30 MG TAB.ER.24H PO SCH (08:43)
[2022-10-24] MEDS: ASPIRIN 81 MG PO SCH (08:43)
[2022-10-24] MEDS: hydrALAZINE HCL 50 MG TAB PO SCH (08:43)
[2022-10-24] MEDS: MULTIVITAMINS, THERA 1 EACH TAB PO SCH (08:43)
[2022-10-24] MEDS: PANTOPRAZOLE 40 MG TABLET PO SCH (08:43)
[2022-10-24] MEDS: IPRATROPIUM-ALBUTEROL 3 ML NEB INHALATION SCH ×3 (09:19→16:26)
--- NOTE | 2022-10-24 09:27 | P.EN ---
Patient will require 2 L of oxygen via nasal cannula on discharge to manage her congestive heart failure
[2022-10-24] MEDS: MAGNESIUM SULFATE-D5W PMX 1 GM in DEXTROSE/WATER 1 100ML.BAG IVPB SCH ×2 (09:55→11:27)
[2022-10-24 11:27] VITALS: BP 110/58; RESP 20; TEMP 97.6
[2022-10-24 11:59] LABS: Glucose,Whole Blood 405 mg/dL (70-110)
[2022-10-24 12:32] VITALS: PULSE 80
--- NOTE | 2022-10-24 23:38 | P.DS ---
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 Her oncologist is Dr. Cox and her PCP is Dr. Garces Other medical problems include Coronary Artery Disease status post stent, Diabetes Mellitus, Hyperlipidemia, Hypertension She presents with generalized weakness and fever at home she was checked by her was 102.2 so she decided to come to the hospital. However patient denies specific symptoms . Here on admission patient had a fever of 101. Patient was admitted with full workup was done and close monitoring as treated empirically with broad-spectrum antibiotics cefepime and Zithromax. She had no more fevers since admission and her symptoms and strength were improving every day and gradually, she has evidence of diastolic CHF and treated with IV Lasix. Today patient back to baseline, she feels strong, she denies any other symptoms. She'll state for discharge by all consultants included hematology/oncology, infectious disease team and strategic planning analyst Patient wants to go home. And follow-up outpatient Patient will be discharged on 7 days of Avelox 400 mg daily based upon my discussion with Dr. Rios today. Problems and management plan were discussed with the patient and he verbalized understanding and acceptance Patient was found stable and can be discharged home in guarded prognosis however he needs follow-up as an outpatient. Patient was instructed to follow up with PCP Dr. Vance within one week and patient agrees Patient was instructed to follow up with her oncologist Dr. Cox on 11/04 and she agrees with this appointment, confirmed with the staff Also patient was instructed to follow up with strategic planning analyst Dr. Wolfe in one week after discharge and she agrees Physical exam Gen: patient is a AAOx3, no distress CVS: S1-S2, RRR, no murmur Lungs: B/L CTA, no wheezing Abdomen: soft, no distention, no tenderness, positive bowel sounds Extremity: no leg edema or induration Time spent more than 35 minutes Patient Condition at Discharge: Fair Plan - Discharge Summary Discharge Rx Participant: No New Discharge Prescriptions: New Furosemide [Lasix] 40 mg PO DAILY #40 tablet RX: Magnesium Oxide [Mag-Ox] 400 mg PO TID 5 Days #15 tablet Moxifloxacin HCl [Avelox] 400 mg PO DAILY 7 Days #7 tab Continue RX: Ergocalciferol [Vitamin D2 (DRISDOL)] 50,000 unit PO Q14D RX: Aspirin EC [Ecotrin Low Dose] 81 mg PO DAILY RX: Isosorbide Mononitrate ER [Imdur] 30 mg PO DAILY Iron 28mg 28 mg PO DAILY RX: carvediloL [Coreg] 12.5 mg PO BID RX: Atorvastatin [Lipitor] 40 mg PO HS RX: hydrALAZINE HCL [Apresoline] 50 mg PO BID #60 tab RX: Pantoprazole Sodium [Protonix] 40 mg PO DAILY Retinovite Supplement 1 tab PO DAILY RX: Multivitamins, Thera [Multivitamin (formulary)] 1 tab PO DAILY RX: Ondansetron [Zofran] 4 mg PO Q6H PRN PRN Reason: Nausea RX: Loperamide HCl [Imodium A-D] 2 mg PO BID PRN PRN Reason: Diarrhea RX: OLANZapine [ZyPREXA] 2.5 mg PO DIRECTED RX: predniSONE 100 mg PO DIRECTED RX: glipiZIDE/METFORMIN HCL [glipiZIDE/METFORMIN HCL 5-500 mg] 1.5 tab PO BID RX: Semaglutide [Ozempic] 1 mg SQ FR RX: Lidocaine-Prilocaine Cream [Emla Cream 2.5%/2.5%] 1 applic TOPICAL ONCE PRN PRN Reason: port access RX: Vits A and D/White Pet/Lanolin [A and D Ointment] 1 applic TOPICAL DAILY PRN PRN Reason: Skin Irritation RX: Docusate [Colace] 100 mg PO DAILY PRN PRN Reason: Constipation RX: Insulin Detemir [Levemir Flextouch] 40 unit SQ HS RX: Insulin Detemir [Levemir Flextouch] 45 unit SQ DAILY RX: Levofloxacin [Levaquin] 500 mg PO DAILY Discharge Medication List RX: Ergocalciferol [Vitamin D2 (DRISDOL)] 50,000 unit PO Q14D 06/16/14 [History] Iron 28mg 28 mg PO DAILY 01/15/19 [History] RX: Aspirin EC [Ecotrin Low Dose] 81 mg PO DAILY 01/15/19 [History] RX: Atorvastatin [Lipitor] 40 mg PO HS 01/15/19 [History] RX: Isosorbide Mononitrate ER [Imdur] 30 mg PO DAILY 01/15/19 [History] RX: carvediloL [Coreg] 12.5 mg PO BID 01/15/19 [History] RX: hydrALAZINE HCL [Apresoline] 50 mg PO BID #60 tab 01/19/19 [Rx] RX: Pantoprazole Sodium [Protonix] 40 mg PO DAILY 05/17/20 [History] Retinovite Supplement 1 tab PO DAILY 05/17/20 [History] RX: Semaglutide [Ozempic] 1 mg SQ FR 06/11/22 [History] RX: glipiZIDE/METFORMIN HCL [glipiZIDE/METFORMIN HCL 5-500 mg] 1.5 tab PO BID 06/11/22 [History] RX: Lidocaine-Prilocaine Cream [Emla Cream 2.5%/2.5%] 1 applic TOPICAL ONCE PRN 08/08/22 [History] RX: Multivitamins, Thera [Multivitamin (formulary)] 1 tab PO DAILY 09/27/22 [History] RX: Ondansetron [Zofran] 4 mg PO Q6H PRN 09/27/22 [History] RX: Docusate [Colace] 100 mg PO DAILY PRN 10/21/22 [History] RX: Insulin Detemir [Levemir Flextouch] 40 unit SQ HS 10/21/22 [History] RX: Insulin Detemir [Levemir Flextouch] 45 unit SQ DAILY 10/21/22 [History] RX: Levofloxacin [Levaquin] 500 mg PO DAILY 10/21/22 [History] RX: Loperamide HCl [Imodium A-D] 2 mg PO BID PRN 10/21/22 [History] RX: OLANZapine [ZyPREXA] 2.5 mg PO DIRECTED 10/21/22 [History] RX: Vits A and D/White Pet/Lanolin [A and D Ointment] 1 applic TOPICAL DAILY PRN 10/21/22 [History] RX: predniSONE 100 mg PO DIRECTED 10/21/22 [History] Furosemide [Lasix] 40 mg PO DAILY #40 tablet 10/24/22 [Rx] Moxifloxacin HCl [Avelox] 400 mg PO DAILY 7 Days #7 tab 10/24/22 [Rx] RX: Magnesium Oxide [Mag-Ox] 400 mg PO TID 5 Days #15 tablet 10/24/22 [Rx] Follow up Appointment(s)/Referral(s): Christiano Wolfe MD [STAFF PHYSICIAN] - 11/03/22 1:15 pm (THURSDAY) [facility] [NON-STAFF] - Erick Vance MD [Primary Care Provider] - 11/05/22 10:45 am (THURSDAY WITH ALBERTO NO OPEN APPOINTMENTS VAILIABLE BEFORE THIS DATE) [facility], [NON-STAFF] - Kelsi Cox MD [STAFF PHYSICIAN] - 11/04/22 3:00 pm (THURSDAY) Patient Instructions/Handouts: Heart Failure (DC), Urinary Tract Infection in Women (DC), Hypokalemia (DC), Hypomagnesemia (DC) Activity/Diet/Wound Care/Special Instructions: Chemotherapy appointment scheduled for 10/30 at 8:30 is CANCELLED. Discharge Disposition: HOME WITH HOME HEALTH SERVICES
[2022-10-30] MEDS ORDERED: OLANZapine 2.5 MG TAB PO SCH (09:00)
== END 2022-10-24 16:26 | disposition home health service (06) | DRG 808 ==
LOC: EC 08:49 → 3SCARD 14:24
PROVIDERS: ADMIT Internal Medicine; ATTEND Internal Medicine
PROC: 30233N1 Transfusion of Nonautologous Red Blood Cells into Peripheral Vein, Percutaneous Approach (ICD-10-PCS; principal; 2022-10-22)
DX: D61.810 Antineoplastic chemotherapy induced pancytopenia (principal); I50.43 Acute on chronic combined systolic (congestive) and diastolic (congestive) heart failure; J18.9 Pneumonia, unspecified organism; C83.31 Diffuse large B-cell lymphoma, lymph nodes of head, face, and neck; D84.821 Immunodeficiency due to drugs; N39.0 Urinary tract infection, site not specified; I11.0 Hypertensive heart disease with heart failure; E66.9 Obesity, unspecified; E11.9 Type 2 diabetes mellitus without complications; E83.42 Hypomagnesemia; R00.0 Tachycardia, unspecified; I25.10 Atherosclerotic heart disease of native coronary artery without angina pectoris; R50.81 Fever presenting with conditions classified elsewhere; T45.1X5A Adverse effect of antineoplastic and immunosuppressive drugs, initial encounter; E78.5 Hyperlipidemia, unspecified; I45.10 Unspecified right bundle-branch block; R00.1 Bradycardia, unspecified; R06.03 Acute respiratory distress; Z20.822 Contact with and (suspected) exposure to COVID-19; Z96.652 Presence of left artificial knee joint; Z79.4 Long term (current) use of insulin; Z99.81 Dependence on supplemental oxygen; Z68.30 Body mass index [BMI] 30.0-30.9, adult; Z79.82 Long term (current) use of aspirin; Z79.84 Long term (current) use of oral hypoglycemic drugs; Z79.85 Long-term (current) use of injectable non-insulin antidiabetic drugs; Z91.040 Latex allergy status; Z91.048 Other nonmedicinal substance allergy status; Z95.5 Presence of coronary angioplasty implant and graft; Z95.1 Presence of aortocoronary bypass graft; Z80.0 Family history of malignant neoplasm of digestive organs; Z79.899 Other long term (current) drug therapy; Z80.8 Family history of malignant neoplasm of other organs or systems; Z85.828 Personal history of other malignant neoplasm of skin; Z82.49 Family history of ischemic heart disease and other diseases of the circulatory system; Z86.73 Personal history of transient ischemic attack (TIA), and cerebral infarction without residual deficits
CPT/HCPCS: 36415; 71045; 71046; 80048; 80053; 81001; 83605; 83735; 83880; 84145; 84484; 85025; 85610; 85730; 86140; 86850; 86900; 86901; 86920; 87040; 87045; 87046; 87086; 87449; 87636; 93005; 93308; 94640; 94760; 96361; 96365; 96367; 99291

== ENCOUNTER → 2023-08-21 | Day surgery (SDC) | payer MEDICARE ==
[2023-08-19 12:27] VITALS: BMI 29.8
[~2023-08-21] MED LIST changes: -ACETAMINOPHEN TAB 500 MG TAB PO PRN; -HEPARIN SODIUM,PORCINE/PF 5,000 UNIT/0.5 ML SYRINGE SQ PRN; +HYDROmorphone 0.5 MG/0.5 ML SYRINGE IVP PRN; +LACTATED RINGERS 1,000 ML IV SCH; +LIDOCAINE 1% (10MG/ML) FOR IV START INTRADERMA PRN; +MIDAZOLAM 2 MG/2 ML VIAL IV PRN; +MIDAZOLAM 2 MG/2 ML VIAL ONE; +PROPOFOL 10 MG/ML 20 ML VIAL IV ONE; -Pre Op ABX Message 1 EACH MISC MISCELLANE ONE; +fentaNYL (PF) 50 MCG/ML 2 ML AMP ONE
[2023-08-21] MEDS: LACTATED RINGERS 1,000 ML IV ONE (06:08)
[2023-08-21 06:38] VITALS: TEMP 96.9
[2023-08-21 06:43] LABS: Glucose,Whole Blood 177 mg/dL (70-110)
[2023-08-21] MEDS: HEPARIN SODIUM,PORCINE 5,000 UNIT/ML 1 ML VIAL SQ PRN (06:52)
[2023-08-21] MEDS: ONDANSETRON 4 MG/2 ML VIAL IVP ONE (06:52)
[2023-08-21] MEDS: ACETAMINOPHEN TAB 500 MG TAB PO PRN (06:52)
[2023-08-21] MEDS: DEXAMETHASONE SOD PHOSPHATE 4 MG/ML 1 ML VIAL IV ONE (06:52)
[2023-08-21] MEDS: LIDOCAINE 1%-EPI 1:100,000 20 ML VIAL SQ ONE ×2 (07:26→07:45)
--- NOTE | 2023-08-21 07:57 | P.OP ---
Date of Procedure: 08/21/23 Preoperative Diagnosis: history of lymphoma Postoperative Diagnosis: history of lymphoma Procedure(s) Performed: removal of right subclavian Port-A-Cath Anesthesia: EVELYN TAVERAS Surgeon: Rakesh Holder Estimated Blood Loss (ml): 5 Pathology: none sent Condition: stable Disposition: PACU Description of Procedure: the patient's placed the operative table in the supine position. She received geIV sedation. Her right chest and neck were prepped and draped usual sterile fashion. The skin was incised 1% local Xylocaine. Then using a 11 blade the skin was incised over the port site. Using blunt and sharp dissection with cautery the port was dissected free to pathology. The skin was closed interrupted 3-0 Monocryl suture. Dermabond was applied. Patient top she will patient was sent to recovery room stable condition.
[2023-08-21] MEDS: IV FLUID CONTINUATION 1,000 ML IV ONE (08:04)
[2023-08-21 08:24] LABS: Glucose,Whole Blood 189 mg/dL (70-110)
[2023-08-21 08:52] VITALS: BP 128/69; PULSE 72; RESP 16
== END | disposition home or self-care (01) ==
LOC: OR 05:52
PROVIDERS: ATTEND Surgery
DX: Z45.09 Encounter for adjustment and management of other cardiac device (principal); I25.10 Atherosclerotic heart disease of native coronary artery without angina pectoris; E78.5 Hyperlipidemia, unspecified; E11.9 Type 2 diabetes mellitus without complications; K21.9 Gastro-esophageal reflux disease without esophagitis; Z79.82 Long term (current) use of aspirin; Z79.01 Long term (current) use of anticoagulants; Z79.899 Other long term (current) drug therapy; Z85.72 Personal history of non-Hodgkin lymphomas
CPT/HCPCS: 36590; J2250; J1644; J1100; J0690; J2405; J3010; J2704

== ENCOUNTER → 2024-04-22 | Outpatient (CLI) | payer MEDICARE ==
[2024-04-22 13:07] LABS: African American GFR (CKD) >90 (>60 ml/min/1.73 sqM); Blood Urea Nitrogen 16 mg/dL (7-17); Non-African American GFR(CKD) 81 (>60 ml/min/1.73 sqM)
--- NOTE | 2024-04-22 16:34 | CT ---
EXAMINATION TYPE: CT ChestAbdPelvis w con CT DLP: 1854 mGycm, Automated exposure control for dose reduction was used. DATE OF EXAM: 04/22/2024 1:47 PM COMPARISON: Chest radiograph 10/23/2022, CT neck 05/16/2022, acute abdominal series 01/15/2019 CLINICAL INDICATION:Female, 78 years old with history of C83.31 DIFFUSE LARGE B-CELL LYMPHOMA, NODES OF HEA; PHH, lymphoma Technique: Multiple axial images of the chest, abdomen, and pelvis were obtained following the intrav enous administration of 100 mL Isovue-300. Oral contrast was administered. Two-dimensional coronal an d sagittal reconstructions were obtained. Findings: CHEST: LUNGS/ PLEURA: No pleural effusion, pneumothorax, or focal consolidation. Few scattered calcified gra nulomas. Scattered regions of linear scarring throughout the lungs. AIRWAY: Patent and unremarkable.. HEART: Size within normal limits.No pericardial effusion. Moderate coronary calcifications. MEDIASTINUM: No evidence of adenopathy. Calcified mediastinal and bilateral hilar nodes. VASCULATURE: No aortic aneurysm. MUSCULOSKELETAL: No acute osseous abnormalities. No aggressive osseous lesion. Multilevel degenerativ e disc disease. SOFT TISSUES/LYMPH NODES: Unremarkable. LOWER NECK: Previously seen left supraclavicular mass is no longer visualized. ABDOMEN: ABDOMEN LIVER: Unremarkable GALLBLADDER AND BILE DUCTS: The gallbladder is surgically absent. No biliary ductal dilatation. PANCREAS: Unremarkable. SPLEEN: Scattered calcified granulomas. ADRENAL GLANDS: Unremarkable. KIDNEYS AND URETERS: No evidence of hydronephrosis or renal calculus. The kidneys enhance symmetrical ly. Couple of subcentimeter hypodense foci within the cortex of the left kidney most consistent with cysts. Contrast is demonstrated within both collecting systems on the delayed phase. PELVIS BLADDER: Underdistended, limiting evaluation. REPRODUCTIVE: Unremarkable. ABDOMEN & PELVIS STOMACH AND BOWEL: The stomach is unremarkable. Periampullary duodenal diverticulum.Distal colonic di verticulosis without evidence for acute diverticulitis. No focal bowel wall thickening or surrounding inflammatory changes. Enteric contrast reaches the distal small bowel. No evidence of bowel obstruct ion. PERITONEUM: No evidence of pneumoperitoneum or free fluid. VASCULATURE: Mild atherosclerotic calcifications are present throughout the abdominal aorta and its b ranches. No abdominal aortic aneurysm. Few pelvic phleboliths. MUSCULOSKELETAL: No acute osseous abnormalities. No aggressive osseous lesion. Multilevel degenerativ e disc disease. LYMPH NODES: No evidence for lymphadenopathy. SOFT TISSUE/ABDOMINAL WALL: Bilateral lower anterior abdominal wall regions of fat stranding within t he subcutaneous tissues. Fat filled infraumbilical hernia. IMPRESSION: 1. No pathologically enlarged adenopathy within the chest, abdomen or pelvis. 2. Previously seen left supraclavicular mass is no longer visualized. 3. Sequelae of prior granulomatous disease. 4. Bilateral lower anterior abdomen wall superficial fat stranding. May relate to medication injecti on versus cellulitis. Correlate clinically. 5. Colonic diverticulosis without evidence for acute diverticulitis. [facility], , 04/22/2024 4:32 PM
== END | disposition home or self-care (01) ==
LOC: RADCTMAIN 11:24
PROVIDERS: ATTEND Internal Medicine Hematology & Oncology
DX: C83.31 Diffuse large B-cell lymphoma, lymph nodes of head, face, and neck (principal); E11.9 Type 2 diabetes mellitus without complications; K57.30 Diverticulosis of large intestine without perforation or abscess without bleeding; R22.1 Localized swelling, mass and lump, neck; Z71.3 Dietary counseling and surveillance
CPT/HCPCS: 82565; 84520; 71260; 74177; 36415; Q9967

== ENCOUNTER 2024-06-30 09:02 | Emergency (ER) | payer MEDICARE ==
[2024-06-30 09:06] VITALS: TEMP 98
--- NOTE | 2024-06-30 09:40 | ED ---
Skin/Abscess/FB HPI - General Chief complaint: Skin/Abscess/Foreign Body Stated complaint: hives Time Seen by Provider: 06/30/24 09:07 Source: patient, RN notes reviewed Mode of arrival: ambulatory Limitations: no limitations - History of Present Illness Initial comments: This is a 79-year-old female who presents to the emergency department for a rash. States that yesterday she noticed a rash on her arms, abdomen, and legs. States that this was very itchy. She tried applying Neosporin and states that it seemed to help. Denies any new medications, soaps, detergents, or coming into contact with anything new. Denies any chest pain or shortness of breath. MD complaint: rash - Related Data Home Medications Medication Instructions Recorded Confirmed Ergocalciferol [Vitamin D2 50,000 unit PO Q14D 06/16/14 08/21/23 (DRISDOL)] Aspirin EC [Ecotrin Low Dose] 81 mg PO DAILY 01/15/19 08/21/23 Atorvastatin [Lipitor] 40 mg PO HS 01/15/19 08/21/23 Isosorbide Mononitrate ER [Imdur] 30 mg PO DAILY 01/15/19 08/21/23 carvediloL [Coreg] 12.5 mg PO BID 01/15/19 08/21/23 Pantoprazole Sodium [Protonix] 40 mg PO DAILY 05/17/20 08/21/23 Retinovite Supplement 1 tab PO DAILY 05/17/20 08/19/23 Semaglutide [Ozempic] 2 mg SQ FR 06/11/22 08/19/23 Insulin Detemir [Levemir Flextouch] 35 unit SQ HS 10/21/22 08/21/23 Insulin Detemir [Levemir Flextouch] 40 unit SQ QAM 10/21/22 08/21/23 Ferrous Sulfate [Feosol] 325 mg PO DAILY 08/19/23 08/21/23 Magnesium Oxide [Mag-Ox] 400 mg PO DAILY 08/19/23 08/21/23 Ubidecarenone [Coenzyme Q10] 200 mg PO DAILY 08/19/23 08/21/23 Previous Rx's Medication Instructions Recorded Famotidine 40 mg PO DAILY 5 Days #5 tablet 06/30/24 Triamcinolone 0.5% Cream [Kenalog 1 applic TOPICAL TID PRN #30 gm 06/30/24 0.5% Cream] diphenhydrAMINE [Benadryl] 25 mg PO QID PRN #30 capsule 06/30/24 Allergies Allergy/AdvReac Type Severity Reaction Status Date / Time adhesive tape Allergy redness Verified 06/30/24 09:06 latex Allergy skin Verified 06/30/24 09:06 redness tegaderm AdvReac redness/bli Uncoded 06/30/24 09:06 ster Review of Systems ROS Statement: Those systems with pertinent positive or pertinent negative responses have been documented in the HPI. ROS Other: All systems not noted in ROS Statement are negative. Past Medical History Past Medical History: Coronary Artery Disease (CAD), Cancer, Diabetes Mellitus, Hyperlipidemia, Hypertension Additional Past Medical History / Comment(s): SHORTNESS OF BREATH AND FATIGUE, SKIN CA HX, LYMPHOMA History of Any Multi-Drug Resistant Organisms: None Reported Past Surgical History: Section, Cholecystectomy, Heart Catheterization With Stent, Hernia Repair, Joint Replacement, Tonsillectomy Additional Past Surgical History / Comment(s): LEFT KNEE REPLACEMENT, UMBILICAL HERNIA REPAIR, cataract surgery, PORT A CATHETER PLACED Past Anesthesia/Blood Transfusion Reactions: No Reported Reaction Date of Last Stent Placement:: 2014 Past Psychological History: No Psychological Hx Reported Smoking Status: Never smoker Past Alcohol Use History: None Reported Past Drug Use History: None Reported - Past Family History Father Family Medical History: Myocardial Infarction (MD) Additional Family Medical History / Comment(s): AT AGE 42 Brother(s) Family Medical History: Cancer Additional Family Medical History / Comment(s): liver and prostate cancer General Exam Limitations: no limitations General appearance: alert, in no apparent distress Head exam: Present: atraumatic, normocephalic, normal inspection Respiratory exam: Present: normal lung sounds bilaterally. Absent: respiratory distress, wheezes, rales, rhonchi, stridor Cardiovascular Exam: Present: regular rate, normal rhythm Neurological exam: Present: alert, oriented X3, CN II-XII intact Psychiatric exam: Present: normal affect, normal mood Skin exam: Present: other (Urticaria to the bilateral upper extremities and abdomen) Course Vital Signs 06/30/24 06/30/24 09:03 10:32 Temperature 98 F 98 F Pulse Rate 85 81 Respiratory 20 18 Rate Blood Pressure 179/72 162/76 O2 Sat by Pulse 96 97 Oximetry Medical Decision Making - Medical Decision Making This is a 79-year-old female who presents to the emergency department for a rash. Was pt. sent in by a medical professional or institution? @ -No Did you speak to anyone other than the patient for history? @ -No Did you review nursing and triage notes? @ -Yes, and I agree, it is accurate with regards to the patient's symptoms. Were old charts reviewed? @ -No Differential Diagnosis? @ -Roseola, measles, Lyme disease, erythema multiforme, cellulitis, toxic shock syndrome, Cecilio Robert syndrome, Kawasaki disease, priyanka mountain spotted fever, contact dermatitis, allergic dermatitis, measles, mumps, rubella, varicella, meningococcal disease, drug reaction, coxsackievirus, This is not meant to be an all-inclusive list. EKG interpreted by me (3pts min.)? @ -Not obtained X-rays interpreted by me (1pt min.)? @ -Not obtained CT interpreted by me (1pt min.)? @ -Not obtained U/S interpreted by me (1pt. min.)? @ -Not obtained What testing was considered but not performed? (CT, X-rays, U/S, labs)? Why? @ -None What meds were considered but not given? Why? @ -None Did you discuss the management of the patient with other professionals? @ -No Did you reconcile home meds? @ -No Was smoking cessation discussed for >3mins.? @ -No Was critical care preformed (if so, how long)? @ -No Were there social determinants of health that impacted care today? How? (Homelessness, low income, unemployed, alcoholism, drug addiction, transportation, low edu. Level, literacy, decrease access to med. care, prison, rehab)? @ -No Was there de-escalation of care discussed even if they declined? (Discuss DNR or withdrawal of care, Hospice)? @ -No What co-morbidities impacted this encounter? (DM, HTN, Smoking, COPD, CAD, Cancer, CVA, Hep., AIDS, mental health diagnosis, sleep apnea, morbid obesity)? @ -None Was patient admitted / discharged? @ -Discharged. Physical examination consistent with urticaria. She did not have any ENT or respiratory involvement. She was given IM Solu-Medrol, Benadryl, and famotidine. A prescription for triamcinolone cream, Benadryl, and famotidine was provided with dosing instructions reviewed. Advised follow-up with her PCP for reevaluation. Patient discharged home in stable condition. Case discussed with ED attending Dr. Diego. Return precautions reviewed in depth, the patient is instructed to return to the emergency department with any new, worsening, or concerning symptoms. Patient verbalized understanding. Undiagnosed new problem with uncertain prognosis? @ -None Drug Therapy requiring intensive monitoring for toxicity (Heparin, Nitro, Insulin, Cardizem)? @ -None Were any procedures done? @ -None Diagnosis/symptom? @ -Urticaria Acute, or Chronic, or Acute on Chronic? @ -Acute Uncomplicated (without systemic symptoms) or Complicated (systemic symptoms)? @ -Uncomplicated Side effects of treatment? @ -None Exacerbation, Progression, or Severe Exacerbation] @ -Not applicable Poses a threat to life or bodily function? @ -No Disposition Clinical Impression: Urticaria Disposition: HOME SELF-CARE Instructions (If sedation given, give patient instructions): Urticaria (ED) Additional Instructions: Return to the emergency department with any new, worsening, or concerning symptoms. Take the Benadryl up to 4 times daily as needed for the rash and itching. Take the famotidine daily for the next 5 days. Apply the triamcinolone cream to the affected areas 3-4 times daily. Follow up with your primary care provider in 1-2 days. Prescriptions: diphenhydrAMINE [Benadryl] 25 mg PO QID PRN #30 capsule PRN Reason: Itching Famotidine 40 mg PO DAILY 5 Days #5 tablet Triamcinolone 0.5% Cream [Kenalog 0.5% Cream] 1 applic TOPICAL TID PRN #30 gm PRN Reason: Itching Is patient prescribed a controlled substance at d/c from ED?: No Referrals: Erick Vance MD [Primary Care Provider] - 1-2 days Time of Disposition: 09:40
[2024-06-30] MEDS: FAMOTIDINE 20 MG TAB PO STA (09:50)
[2024-06-30] MEDS: methylPREDNISolone SOD SUCCI 125 MG/2 ML VIAL IM ONE (09:51)
[2024-06-30] MEDS: diphenhydrAMINE 50 MG/ML 1 ML VIAL IM STA (09:52)
[2024-06-30] MEDS: TRIAMCINOLONE ACET 0.5% CREAM 15 GM TUBE TOPICAL STA (09:57)
[2024-06-30 10:33] VITALS: BP 162/76; PULSE 81; RESP 18
== END 2024-06-30 10:33 | disposition home or self-care (01) ==
LOC: EC 09:02
DX: L50.9 Urticaria, unspecified (principal)
CPT/HCPCS: 99282; 96372 ×2; J1200; J2919

== ENCOUNTER → 2024-10-24 | Outpatient (CLI) | payer MEDICARE ==
[2024-10-24 12:21] LABS: African American GFR (CKD) 82 (>60 ml/min/1.73 sqM); Blood Urea Nitrogen 20 mg/dL (7-17); Non-African American GFR(CKD) 71 (>60 ml/min/1.73 sqM)
--- NOTE | 2024-10-24 14:22 | CT ---
EXAMINATION TYPE: CT ChestAbdPelvis w con CT DLP: 1590 mGycm, Automated exposure control for dose reduction was used. DATE OF EXAM: 10/24/2024 2:04 PM COMPARISON: CT chest and pelvis 04/22/2024 CLINICAL INDICATION:Female, 79 years old with history of C83.31 DIFFUSE LARGE B-CELL LYMPHOMA, NODES OF HEA; PHH, lymphoma Technique: Multiple axial images of the chest, abdomen, and pelvis were obtained following the intrav enous administration of 100 mL Isovue-300. Oral contrast was administered. Two-dimensional coronal an d sagittal reconstructions were obtained. Findings: CHEST: LUNGS/ PLEURA: No pleural effusion, pneumothorax, or focal consolidation. Few scattered calcified gra nulomas. Scattered regions of linear scarring throughout the lungs. No new or enlarging pulmonary no dules. AIRWAY: Patent and unremarkable.. HEART: Size within normal limits.No pericardial effusion. Moderate coronary calcifications. MEDIASTINUM: No evidence of adenopathy. Calcified mediastinal and bilateral hilar nodes redemonstrate d. This suggests treated disease versus sequelae of prior granulomatous disease. VASCULATURE: No aortic aneurysm. MUSCULOSKELETAL: No acute osseous abnormalities. No aggressive osseous lesion. Multilevel degenerativ e disc disease. Bilateral shoulder arthropathy. Diffuse bone demineralization. Prominent xiphoid proc ess. SOFT TISSUES/LYMPH NODES: Unremarkable. LOWER NECK: Previously seen left supraclavicular mass is no longer visualized. ABDOMEN: ABDOMEN LIVER: Couple of calcified granulomas. No suspicious focal lesion. GALLBLADDER AND BILE DUCTS: The gallbladder is surgically absent. No biliary ductal dilatation. PANCREAS: Unremarkable. SPLEEN: Scattered calcified granulomas. ADRENAL GLANDS: Unremarkable. KIDNEYS AND URETERS: No evidence of hydronephrosis or renal calculus. The kidneys enhance symmetrical ly. Couple of subcentimeter hypodense foci within the cortex of the left kidney most consistent with cysts. No follow-up recommended. Contrast is demonstrated within both collecting systems on the delay ed phase. PELVIS BLADDER: Underdistended, limiting evaluation. REPRODUCTIVE: Unremarkable. ABDOMEN & PELVIS STOMACH AND BOWEL: The stomach is unremarkable. Periampullary duodenal diverticulum.Distal colonic di verticulosis without evidence for acute diverticulitis. No focal bowel wall thickening or surrounding inflammatory changes. Enteric contrast reaches the distal small bowel. No evidence of bowel obstruct ion. PERITONEUM: No evidence of pneumoperitoneum or free fluid. VASCULATURE: Mild atherosclerotic calcifications are present throughout the abdominal aorta and its b ranches. No abdominal aortic aneurysm. Few pelvic phleboliths. MUSCULOSKELETAL: No acute osseous abnormalities. No aggressive osseous lesion. Multilevel degenerativ e disc disease. Diffuse bone demineralization. LYMPH NODES: No evidence for lymphadenopathy. SOFT TISSUE/ABDOMINAL WALL: Bilateral lower anterior abdominal wall regions of fat stranding within t he subcutaneous tissues redemonstrated. Fat filled infraumbilical hernia redemonstrated. IMPRESSION: 1. No pathologically enlarged adenopathy within the chest, abdomen or pelvis. 2. Previously seen left supraclavicular mass is no longer visualized. 3. Sequelae of prior granulomatous disease. 4. Bilateral lower anterior abdomen wall superficial fat stranding redemonstrated. May relate to med ication injection versus cellulitis versus scarring. Correlate clinically. 5. Colonic diverticulosis without evidence for acute diverticulitis. [facility], , 10/24/2024 2:19 PM
== END | disposition home or self-care (01) ==
LOC: RADCTMAIN 11:30
PROVIDERS: ATTEND Internal Medicine Hematology & Oncology
DX: C83.31 Diffuse large B-cell lymphoma, lymph nodes of head, face, and neck (principal); K57.30 Diverticulosis of large intestine without perforation or abscess without bleeding
CPT/HCPCS: 82565; 84520; 71260; 74177; 36415; Q9967